=== PATIENT | male | born 1955 | race Caucasian/White ===

== ENCOUNTER 2022-10-12 12:55 | Inpatient (IN) | payer MEDICARE, SELFPAY ==
[2022-10-12] VITALS (19 sets, daily range): BP systolic 148–179; BP diastolic 83–91; PULSE 53–85; RESP 12–20; TEMP 36.2–36.9; O2SAT 96–100; BMI 29.7
--- NOTE | ~2022-10-12 | MR_ITS ---
MRI of the brain Clinical History: Weakness, dysphasia Technique: Axial and sagittal T1-weighted images were acquired. These were followed by axial T2-weigh charis, diffusion weighted, gradient, and FLAIR images. Following intravenous administration of 20 cc Mu ltiHance gadolinium, T1-weighted fat-sat imaging was performed in the axial and coronal planes. Findings: No significant abnormality seen in the brain parenchyma. No acute infarct, intracranial hem orrhage, or mass lesion. Ventricles and subarachnoid spaces are unremarkable. Orbits are unremarkable. Paranasal sinuses and m astoid air cells are clear. Major intracranial flow voids appear intact. Sagittal midline structures are intact. No abnormal postcontrast enhancement identified. IMPRESSION: No significant abnormality identified. Reviewed, dictated and finalized at location .
--- NOTE | ~2022-10-12 | CT_ITS ---
EXAMINATION: CT brain wo con DATE: 10/12/2022 13:41 INDICATION: Altered mental status TECHNIQUE: Computed tomography (CT) of the head was performed without intravenous contrast. The dose- length product was 681.00 mGy-cm. Automated exposure control and iterative reconstruction technique w ere employed. COMPARISON: None FINDINGS: Generalized brain parenchymal atrophy. There are scattered mild periventricular and subcort ical white matter changes, most likely related to small vessel ischemic disease (microangiopathy). No ventriculomegaly or midline shift. There is prominent dural calcification along the interhemispheric fissure. There is intracranial atherosclerosis. No acute intracranial hemorrhage, infarction, mass o r mass effect. Minimal mucosal thickening of the right maxillary and ethmoid sinuses. Mastoids are pn eumatized. No depressed skull fractures. IMPRESSION: 1. No acute intracranial abnormality. 2: Chronic age-related findings. Reviewed, dictated and finalized at location L.
--- NOTE | ~2022-10-12 | US_ITS ---
EXAMINATION: US renal BI DATE: 10/18/2022 16:48 INDICATION: Renal failure. TECHNIQUE: Multiple ultrasound grayscale images of the kidneys were obtained. COMPARISON: None. FINDINGS: The right kidney measures 12.2 x 6.2 x 6.3 cm. The left kidney measures 12.3 x 6.6 x 6.3 cm. The kidn eys demonstrate normal parenchymal echogenicity. There is no hydronephrosis. The bladder is normal. IMPRESSION: 1. Normal kidneys. No hydronephrosis. Reviewed, dictated and finalized at location A.
--- NOTE | ~2022-10-12 | XR_ITS ---
EXAMINATION: XR barium swallow modified DATE: 10/13/2022 13:37 INDICATION: Dysphagia TECHNIQUE: Modified barium esophagram was performed by myself who administered fluoroscopy, in conju nction with speech pathologist who administered barium in varying consistencies as per speech patholo gist documentation. This was recorded on tape. A single fluoroscopic spot image was recorded. Fluoros copy exposure time was 2.8 minutes. The DAP for this procedure was 2.295 Gycm2. FINDINGS: Oral stage: Reduced lingual movement. Pharyngeal phase: Reduced laryngeal elevation, reduced pharyngeal squeeze. Laryngeal penetration: Present. Aspiration: Present within liquid. Laryngeal sensitivity: Absent. IMPRESSION: Abnormal modified barium swallow. Please refer to speech pathologist findings and specifi c feeding recommendations. Reviewed, dictated and finalized at location A. IMPRESSION: Abnormal modified barium swallow. Please refer to speech pathologis t findings and specific feeding recommendations.
--- NOTE | ~2022-10-12 | US_ITS ---
EXAMINATION: US venous doppler [facility] DATE: 10/12/2022 15:51 INDICATION: Lower limb edema. TECHNIQUE: Grayscale ultrasound images without and with compression and Doppler ultrasound images of the bilateral lower extremity veins were obtained. COMPARISON: None. FINDINGS: The visualized portions of right common femoral vein, profunda (deep) femoral vein, femoral vein, pop liteal vein, peroneal veins, posterior tibial veins, and greater saphenous vein outflow are patent. The visualized portions of left common femoral vein, profunda femoral vein, femoral vein, popliteal v ein, peroneal veins, posterior tibial veins, and greater saphenous vein outflow are patent. IMPRESSION: 1. No deep venous thrombosis. Reviewed, dictated and finalized at location E.
--- NOTE | ~2022-10-12 | XR_ITS ---
XR chest 1V portable 10/12/2022 13:35 Indication: Altered mental status. Bilateral lower extremity swelling. Procedure: AP portable chest Comparison: No prior studies for comparison. Findings: Borderline heart size. No focal air space disease, pulmonary edema, pleural effusion or margy pected pneumothorax. Impression: 1: No acute cardiopulmonary disease. Reviewed, dictated and finalized at location L. Impression: 1: No acute cardiopulmonary disease.
--- NOTE | 2022-10-12 13:05 | ECG_ITS ---
Measurements Intervals [place] Rate: 61 P: 10 AL: 189 QRS: -14 QRSD: 106 T: 11 QT: 410 QTc: 413 Interpretive Statements SINUS RHYTHM ATRIAL PREMATURE COMPLEXES VOLTAGE CRITERIA FOR LVH BORDERLINE T WAVE ABNORMALITY- INFERIOR LEADS BASELINE ARTIFACT- I, II, AVR, AVL BORDERLINE ECG NO PREVIOUS ECG AVAILABLE FOR COMPARISON Electronically Signed On 10-12-2022 13:51:08 CDT by Ricardo Rosa D.O.
--- NOTE | 2022-10-12 13:12 | ED.AMS ---
HPI - Altered Mental Status General Chief Complaint: Altered Mental Status Stated Complaint: ams Time Seen by Provider: 10/12/22 13:00 Source: family and EMS Mode of arrival: EMS Limitations: altered mental status History of Present Illness HPI narrative: Patient is a 67-year-old male with a history of Alzheimer's dementia, recent left lower extremity cellulitis and admission at [facility] in [place], [place], presenting to the emergency department for evaluation of altered mental status. All history was obtained by speaking with EMS as patient is currently altered and oriented to person, not to place or time. He can state that he is in an emergency room but then states around hospital. He states the year is 2031 patient denies any acute complaints. History is obviously limited secondary to his altered mentation. Per EMS, patient was discharged from [facility] yesterday after he was admitted for left lower extremity cellulitis. EMS called this morning to evaluate the patient and his noticed that he had worsening mentation and increased weakness. At the time of their arrival, he was sitting in a chair, very somnolent. He was transported to the emergency department in stable condition. Glucose 123. No hypotension, afebrile. Review of Systems Review of Systems: ROS unobtainable: Yes unobtainable due to medical condition and unobtainable due to mental status PMFSH Past Medical History Medical History (Updated 10/12/22 @ 15:22 by Janene Eddy MD) Alzheimer's dementia Cellulitis Exam Narrative: GENERAL: Patient is somnolent but arousable, confused HEAD: Normocephalic, atraumatic. EYES: PERRLA and EOMI. ENT: Nares clear, no rhinorrhea or epistaxis. Mucous membranes dry. NECK: Supple. CHEST: No respiratory distress, breathing even and non labored HEART: Bradycardic rate, sinus rhythm ABDOMEN:Non distended, soft to palpation, does not grimace with palpation, no rebound, rigidity or guarding EXTREMITIES: Spontaneously ranging all extremities. Normal range of motion. Mild edema in the bilateral lower extremities, greater in the left when compared to the right Skin: Warm, dry, no rash. There is no significant erythema, purpura, or induration to the extremities. NEURO:No focal deficits. Alert and oriented x1-2 Course Vital Signs Vital signs: Vital Signs Blood Pressure 160/84 H 10/12/22 13:07 Pulse Oximetry 100 10/12/22 13:07 Temperature 36.2 C L 10/12/22 13:26 Pulse Rate 53 L 10/12/22 13:26 Respiratory Rate 16 10/12/22 13:26 Blood Pressure 168/86 H 10/12/22 14:17 Pulse Oximetry 98 10/12/22 14:48 Oxygen Delivery Room Air 10/12/22 13:26 MDM - Altered Mental Status MDM Narrative Medical decision making narrative: Medical decision making narrative: -Presentation: Patient with recent prolonged admission at [facility], discharged home yesterday, and then transported here via EMS for generalized weakness. Time of assessment, ABCs are intact, patient is mildly bradycardic, no hypotension. Patient does have history of dementia, is currently somnolent but arousable. Oriented to person, can identify he is in emergency room, otherwise not oriented to place and time. -DDX includes but is not limited to: Pneumonia, encephalopathy, electrolyte derangement, CVA, intracranial hemorrhage, deconditioning, infection -Co-morbidities complicating care: Dementia -Social determinants of health: Poor health literacy -External Chart Review: External EMR record reviewed, no previous visits to this facility, did request records from [facility] in [place], [place] -Hx from independent Sources: Daughter and at bedside -Discussion of Management/Consultants: Discussed with hospitalist, accepted for admission -Independent interpretation of studies: Chest x-ray per my interpretation without acute cardiopulmonary abnormality Dx tests considered but not o
[2022-10-12 13:24] LABS: Fractional Inspired Oxygen 21 %; HCO3 VBG 24.9 mEq/l (24.0-30.0); PCO2 VBG 40.4 mmHg (42.0-48.0); PO2 VBG 31.2 mmHg (35.0-45.0)
[2022-10-12 13:26] LABS: Device ROOM AIR; pH VBG 7.408 (7.300-7.400)
[2022-10-12 13:37] LABS: Appearance Urine Clear (Clear); Bilirubin Urine Negative (Negative); Blood Urine Negative (Negative); Color Urine Dark Yellow (Yellow); Glucose Urine UA Negative (Negative); Ketones Urine Trace mg/dL (Negative); Leukocyte Esterase Ur Negative LEU/UL (Negative); Nitrate Urine Negative (Negative); Protein Urine Negative (Negative); Specific Grav Ur 1.027 (1.001-1.035); pH Urine 5.5 (5.0-9.0)
[2022-10-12 13:39] LABS: Basophils Percent Auto 0.7 % (0.2-1.2); Eosinophils Absolute Auto 0.1 K/mm3 (0-0.3); Eosinophils Percent Auto 1.4 % (0-4.4); Hematocrit 42.9 % (42.0-52.0); Immature Granulocyte Absolute 0.03 K/mm3 (0.00-0.031); Immature Granulocyte Percent A 0.5 % (0-0.5); Lymphocytes Absolute Auto 0.82 K/mm3 (0.9-3.2); Lymphocytes Percent Auto 14.6 % (18.3-44.2); Mean Corpuscular HGB Conc 32.6 g/dl (32-36); Mean Corpuscular Hemoglobin 31.7 pg (26-34); Mean Corpuscular Volume 97.3 fl (80-100); Mean Platelet Volume 10.9 fl (7.4-10.4); Monocytes Absolute Auto 0.9 K/mm3 (0.1-0.6); Monocytes Percent Auto 16.6 % (2.6-8.5); Neutrophils Absolute Auto 3.7 K/mm3 (1.3-6.7); Neutrophils Percent Auto 66.2 % (45.5-73.1); Platelet Count Result 140 k/mm3 (150-375); Red Blood Count 4.41 M/mm3 (4.6-6.20); Red Cell Distribution Width 13.2 % (11.5-14.5); White Blood Count 5.6 K/mm3 (4.5-10.0)
[2022-10-12 13:43] LABS: Lactic Acid Reflex 0.8 mmol/L (0.7-2.0)
[2022-10-12 13:44] LABS: Alanine Aminotransferase 8 U/L (6-50); Albumin Level 3.9 g/dL (3.5-5.1); Alkaline Phosphatase 63 U/L (38-126); Anion Gap 7 mmol/L (8-16); Aspartate Amino Transferase 16 U/L (17-59); Blood Urea Nitrogen 21 mg/dL (9-20); Calcium 8.6 mg/dL (8.4-10.2); Carbon Dioxide 28 mmol/L (22-30); Chloride 104 mmol/L (98-107); Estimated CRCL calculation 66 ml/min; Estimated Glomerular Filt Rate > 60; Glucose 99 mg/dL (65-110); Potassium 4.1 mmol/L (3.4-5.0); Sodium 139 mmol/L (137-145)
[2022-10-12 13:48] LABS: Glucose Point of Care 106 mg/dl (65-105)
[2022-10-12 13:52] LABS: Benzodiazepines Screen Urine Negative (Negative)
[2022-10-12 13:52] LABS: Acetaminophen < 10 ug/mL (10-30); Ammonia < 9 umol/L (9-30); Ethanol < 10 mg/dL (<10); INR 1.1; Prothrombin Time 14.5 Seconds (11.1-14.7); Salicylate < 1.0 mg/dL (2-20)
[2022-10-12 13:53] LABS: Cannabinoid Screen Urine Negative (Negative); Cocaine Screen Urine Negative (Negative); Methadone Screen Urine Negative (Negative)
[2022-10-12 13:53] LABS: Add Urine Microscopic? NO
[2022-10-12 13:54] LABS: Partial Thromboplastin Time 35.9 SECONDS (22.3-36.8)
[2022-10-12 13:55] LABS: Troponin I < 0.012 ng/mL (0.000-0.034)
[2022-10-12 13:57] LABS: Barbiturate Screen Urine Negative (Negative)
[2022-10-12 14:02] LABS: Opiate Screen Urine Negative (Negative)
[2022-10-12 14:10] LABS: Influenza A QL RT-PCR Negative (Negative); Influenza B QL RT-PCR Negative (Negative); RSV RNA, RT-PCR Negative (Negative); SARS-CoV-2 RNA PCR Negative (Negative)
[2022-10-12 14:38] LABS: Amphetamine Screen Urine Negative (Negative); Phencyclidine Screen Urine Negative (Negative)
[2022-10-12 14:44] LABS: NT Pro B Type Natriuretic Pept 271 pg/mL (19.9-100)
[2022-10-12 16:15] LABS: Glucose Point of Care 108 mg/dl (65-105)
[2022-10-12 17:07] LABS: Troponin I < 0.012 ng/mL (0.000-0.034)
--- NOTE | 2022-10-12 17:20 | ADMGEN ---
This patient, Sean Shankar, was admitted to Medical Room 341-01. Patient/family oriented to hospital policies and general routines including ID bracelet, bed and alarms, visiting hours, pain management, procedures, bathroom and other care routines, personal items, smoking policy, room service/diet, and visiting hours. Information on how to activate the Rapid Response Team has been discussed. Patient/Family are encouraged to report perceived risks to care and to ask questions if they do not understand what they are told or what they should do.
[2022-10-12] MEDS: SODIUM CHLORIDE 0.9% IV 1,000 ML 125 ML IV CONT (18:07)
[2022-10-12 19:54] LABS: Troponin I < 0.012 ng/mL (0.000-0.034)
--- NOTE | 2022-10-12 22:13 | PM.IMHP ---
H&P: HPI History of Present Illness Date/Time: 10/12/22 22:13 Chief Complaint: altered mental status Narrative: this is a 67-year-old male patient who has a history of Alzheimer's dementia. He lives with his . The patient was recently admitted to [facility] in [place] for cellulitis of the lower extremity. The patient is currently orientated to himself. The patient was not orientated to place initially but the patient is now where that he is at [facility]. The patient was discharged from [facility] yesterday. EMS was called this morning for the patient to be evaluated since he has increased weakness. When EMS came to the residence the patient was very somnolent and was sitting in a chair. His blood sugar was 123. No fever chills noted. No nausea vomiting or diarrhea. The patient was answering questions for me without difficulty. Patient has some leg swelling and venous Doppler was negative. Head CT was read as no acute intracranial abnormality. Chronic age-related findings. Chest x-ray was read as no acute cardiopulmonary disease. The patient was given IV fluids, Haldol and Benadryl in the emergency room. The patient is being admitted to observation status on the date of service of 10/12/2022 peer Review of Systems Review of Systems: All systems reviewed & are unremarkable except as noted in HPI and below Constitutional: Constitutional: Reports as per HPI and Reports no additional constitutional complaints Eyes: Eyes: Reports as per HPI and Reports no additional eye complaints ENT: Reports system reviewed and no additional complaints, except as documented and Reports Normal hearing present Cardiovascular: Cardiovascular: Reports no additional cardiovascular complaints Respiratory: Respiratory: Reports no additional respiratory complaints and Reports no additional respiratory complaints Gastrointestinal: Gastrointestinal: Reports as per HPI and Reports no additional gastrointestinal complaints Musculoskeletal: Musculoskeletal: Reports no additional musculoskeletal complaints Integumentary/Breasts: Skin/Breast: Reports system reviewed and no additional complaints, except as docu and Reports as per HPI Neurologic: Reports system reviewed and no additional complaints, except as documented, Reports as per HPI and Reports Normal hearing present Psychiatric: Psychiatric: Reports no additional psychiatric complaints and Reports as per HPI Endocrine: Endocrine: Reports no additional endocrine complaints Hematologic/Lymphatic: Hematologic/Lymphatic: Reports no additional hematologic/lymphatic complaints Allergic/Immunologic: Allergic/Immunologic: Reports no additional allergic/immunologic complaints [facility] Past Medical History Medical History (Updated 10/12/22 @ 23:58 by Chapis Hawk NP) Alzheimer's dementia Anxiety Cellulitis Surgical History Surgical History (Updated 10/12/22 @ 23:49 by Chapis Hawk NP) Surgical history unknown Family History Family History (Updated 10/12/22 @ 23:49 by Chapis Hawk NP) Unknown No problems noted. Social History Social History (Updated 10/12/22 @ 23:52 by Chapis Hawk NP) Social History: the patient lives with his . 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 The patient stated that he had 2 children. Code status full code Smoking status: Former smoker Alcohol intake: current Drinks per week: 2 Substance use: never Spiritual care concerns: No Meds Home Medications and Allergies Home Medications Medication Instructions Recorded Confirmed Type carbidopa 25 mg-levodopa 100 mg 2.5 tablet PO Q4H 10/12/22 10/12/22 History tablet cephalexin 500 mg capsule 500 mg PO QID 10/12/22 10/12/22 History clonazepam 0.5 mg tablet 1 mg PO HS PRN Insomnia 10/12/22 10/12/22 History donepezil 10 mg tablet 10 mg PO HS 10/12/22 10/12/22 History Allergies Allergy/AdvRea
[2022-10-13] VITALS (7 sets, daily range): BP systolic 124–152; BP diastolic 69–80; PULSE 65–86; RESP 16–18; TEMP 36.3–37.2; O2SAT 96–100
[2022-10-13] MEDS: SODIUM CHLORIDE 0.9% IV 1,000 ML 125 ML IV CONT ×2 (05:51→17:09)
[2022-10-13 05:57] LABS: Basophils Percent Auto 0.6 % (0.2-1.2); Eosinophils Percent Auto 0.6 % (0-4.4); Hematocrit 42.3 % (42.0-52.0); Hemoglobin 14.6 g/dL (14.0-18.0); Immature Granulocyte Absolute 0.03 K/mm3 (0.00-0.031); Immature Granulocyte Percent A 0.4 % (0-0.5); Lymphocytes Absolute Auto 0.61 K/mm3 (0.9-3.2); Lymphocytes Percent Auto 8.8 % (18.3-44.2); Mean Corpuscular HGB Conc 34.5 g/dl (32-36); Mean Corpuscular Hemoglobin 32.4 pg (26-34); Mean Corpuscular Volume 93.8 fl (80-100); Mean Platelet Volume 10.6 fl (7.4-10.4); Monocytes Absolute Auto 0.9 K/mm3 (0.1-0.6); Monocytes Percent Auto 13.3 % (2.6-8.5); Neutrophils Absolute Auto 5.3 K/mm3 (1.3-6.7); Neutrophils Percent Auto 76.3 % (45.5-73.1); Platelet Count Result 141 k/mm3 (150-375); Red Blood Count 4.51 M/mm3 (4.6-6.20); Red Cell Distribution Width 12.7 % (11.5-14.5); White Blood Count 6.9 K/mm3 (4.5-10.0)
[2022-10-13 06:14] LABS: Anion Gap 6 mmol/L (8-16); Blood Urea Nitrogen 15 mg/dL (9-20); Calcium 8.5 mg/dL (8.4-10.2); Carbon Dioxide 27 mmol/L (22-30); Chloride 105 mmol/L (98-107); Estimated CRCL calculation 80 ml/min; Estimated Glomerular Filt Rate > 60; Glucose 105 mg/dL (65-110); Lactic Acid Reflex 0.6 mmol/L (0.7-2.0); Magnesium 1.8 mg/dL (1.6-2.3); Potassium 3.7 mmol/L (3.4-5.0); Sodium 138 mmol/L (137-145)
[2022-10-13 06:51] LABS: Thyroid Stimulating Hormone Reflex 0.941 uIU/mL (0.465-4.68)
--- NOTE | 2022-10-13 10:34 | PCSTNOTE ---
Bedside swallowing evaluation completed, spouse present. Patient was positioned upright in bed. Oral peripheral examination results show impaired oral motor strength, range of motion, and coordination with lingual and labial tremoring with movement. Patient was able to cough and clear throat upon command. Trials of thin liquid by spoon and cup and pureed food by spoon were given. Delayed triggering of swallow reflex and reduced laryngeal elevation present with all consistencies. Coughing and throat clearing with thin liquid bolus from cup. Per spouse, patient has difficulty swallowing pills at this time. Recommendation: NPO until modified barium swallow study. Thank you for the referral of this patient.
--- NOTE | 2022-10-13 12:04 | PM.IMPN ---
Progress Note: A&P Assessment and Plan (1) Generalized muscle weakness: Code(s): M62.81 - Muscle weakness (generalized) Status: Acute Assessment and Plan: PT and OT have been consulted for evaluation. rn care manager has been consulted for possible placement. CT head and MRI brain negative (2) Dementia: Code(s): F03.90 - Unspecified dementia, unspecified severity, without behavioral disturbance, psychotic disturbance, mood disturbance, and anxiety Status: Acute Assessment and Plan: continue with patient's Aricept and carbidopa levodopa states she is unable to take care of the patient at home. Consult case management for placement (3) Anxiety: Code(s): F41.9 - Anxiety disorder, unspecified Status: Acute Assessment and Plan: continue with clonazepam . (4) Cellulitis: Code(s): L03.90 - Cellulitis, unspecified Status: Acute Assessment and Plan: continue with Keflex . The patient recently was at [facility] and was treated with IV antibiotics there. The patient was sent home on Keflex. We are just going to continue with his Keflex that was prescribed for outpatient cellulitis. Subjective Date/time seen: 10/13/22 12:04 Interval history: patient is confused Review of Systems Review of Systems: All systems reviewed & are unremarkable except as noted in HPI and below Constitutional: Constitutional: Reports as per HPI and Reports no additional constitutional complaints Eyes: Eyes: Reports as per HPI and Reports no additional eye complaints ENT: Reports system reviewed and no additional complaints, except as documented and Reports Normal hearing present Cardiovascular: Cardiovascular: Reports no additional cardiovascular complaints Respiratory: Respiratory: Reports no additional respiratory complaints and Reports no additional respiratory complaints Gastrointestinal: Gastrointestinal: Reports as per HPI and Reports no additional gastrointestinal complaints Musculoskeletal: Musculoskeletal: Reports no additional musculoskeletal complaints Integumentary/Breasts: Skin/Breast: Reports system reviewed and no additional complaints, except as docu and Reports as per HPI Neurologic: Reports system reviewed and no additional complaints, except as documented, Reports as per HPI and Reports Normal hearing present Psychiatric: Psychiatric: Reports no additional psychiatric complaints and Reports as per HPI Endocrine: Endocrine: Reports no additional endocrine complaints Hematologic/Lymphatic: Hematologic/Lymphatic: Reports no additional hematologic/lymphatic complaints Allergic/Immunologic: Allergic/Immunologic: Reports no additional allergic/immunologic complaints Exam Const: General: cooperative, healthy appearing, comfortable, no acute distress, well developed, awake, average body habitus and well nourished Nutritional Appearance: average body habitus and well nourished Orientation/consciousness: oriented to person and oriented to place Limitations: no limitations HENMT: Head: normal to inspection, No palpable skull fracture present, normocephalic and atraumatic Ears: hearing grossly normal bilaterally and external ears normal Face/Nose/Sinus: Normal external nose present and Normal nares present Eyes: General: appearance normal, both eyes and all related structures Alignment and Position: alignment normal Periorbital: periorbital findings normal Eyelids: eyelids normal Pupils: Equal, round and reactive pupils present EOM: EOMs intact bilaterally Neck: Neck: normal visual inspection and full ROM Chest: Chest palpation & inspection: normal inspection of the chest Resp: Effort & Inspection: normal respiratory effort Auscultation: clear to auscultation bilaterally Cardio: Palpation: normal PMI Rate: regular rate Rhythm: regular rhythm Heart sounds: S1 normal heart sound present and S2 normal heart sound present Perip
--- NOTE | 2022-10-13 15:24 | PCSTNOTE ---
Modified barium swallow study. Trials of thin barium by spoon, cup, moderately thick by cup, mixed consistency by spoon, whole pill, and pill broken into quarters and given in pudding were completed. Reduced lingual movement with all consistencies, reduced laryngeal elevation, reduced pharyngeal squeeze present. One episode of aspiration occurred when pill given with thin barium. Pill remained in lateral oral sulcus, thin liquid was swallowed and aspirated. Pill was then placed whole in pudding and pudding was swallowed but pill remained in lateral oral sulcus again. Pill was then broken into quarters and two pieces were placed in 5 ml of pudding and swallowed successfully. Recommendation: minced moist diet texture with thin liquids. Swallowing precautions placed in chart. No further speech therapy recommended. Thank you for the referral of this patient.
[2022-10-13] MEDS: CARBIDOPA/LEVODOPA 12.5/50 MG TABLET 1 TABLET PO ×2 (17:10→20:34)
[2022-10-13] MEDS: CEPHALEXIN 500 MG CAPSULE PO ×2 (17:10→23:28)
[2022-10-13] MEDS: CARBIDOPA/LEVODOPA 25/100 MG TABLET 2 TABLET PO ×2 (17:10→20:34)
[2022-10-13] MEDS: clonazePAM (*CRX) 0.5 MG TABLET 1 MG PO (20:33)
[2022-10-13] MEDS: VANCOMYCIN 1,250 MG/NS 250 ML 1,250 MG/250 ML BAG 166.67 MG IVPB ×2 (20:34→22:39)
[2022-10-13] MEDS: DONEPEZIL HCL 10 MG TABLET PO (20:34)
[2022-10-14 04:28] VITALS: BP 139/69; PULSE 64; RESP 20; TEMP 36.4; O2SAT 96
[2022-10-14] MEDS: CEPHALEXIN 500 MG CAPSULE PO ×4 (06:00→23:20)
[2022-10-14] MEDS: CARBIDOPA/LEVODOPA 25/100 MG TABLET 2 TABLET PO ×5 (06:00→20:36)
[2022-10-14] MEDS: CARBIDOPA/LEVODOPA 12.5/50 MG TABLET 1 TABLET PO ×5 (06:00→20:36)
[2022-10-14 06:30] LABS: Estimated CRCL calculation 73 ml/min; Estimated Glomerular Filt Rate > 60
--- NOTE | 2022-10-14 10:46 | PM.IMPN ---
Progress Note: A&P Assessment and Plan (1) Bacteremia: Code(s): R78.81 - Bacteremia Status: Acute Assessment and Plan: patient has Staph epidermidis growing in blood cultures. likely contaminant. Patient was started on IV vancomycin which will stop (2) Generalized muscle weakness: Code(s): M62.81 - Muscle weakness (generalized) Status: Acute Assessment and Plan: PT and OT have been consulted for evaluation. customer care coordinator has been consulted for possible placement. CT head and MRI brain negative (3) Dementia: Code(s): F03.90 - Unspecified dementia, unspecified severity, without behavioral disturbance, psychotic disturbance, mood disturbance, and anxiety Status: Acute Assessment and Plan: continue with patient's Aricept and carbidopa levodopa states she is unable to take care of the patient at home. Consult case management for placement (4) Anxiety: Code(s): F41.9 - Anxiety disorder, unspecified Status: Acute Assessment and Plan: continue with clonazepam . (5) Cellulitis: Code(s): L03.90 - Cellulitis, unspecified Status: Acute Assessment and Plan: continue with Keflex . The patient recently was at [facility] and was treated with IV antibiotics there. The patient was sent home on Keflex. We are just going to continue with his Keflex that was prescribed for outpatient cellulitis. Subjective Date/time seen: 10/14/22 10:46 Interval history: no significant issues overnight Review of Systems Review of Systems: All systems reviewed & are unremarkable except as noted in HPI and below Constitutional: Constitutional: Reports as per HPI and Reports no additional constitutional complaints Eyes: Eyes: Reports as per HPI and Reports no additional eye complaints ENT: Reports system reviewed and no additional complaints, except as documented and Reports Normal hearing present Cardiovascular: Cardiovascular: Reports no additional cardiovascular complaints Respiratory: Respiratory: Reports no additional respiratory complaints and Reports no additional respiratory complaints Gastrointestinal: Gastrointestinal: Reports as per HPI and Reports no additional gastrointestinal complaints Musculoskeletal: Musculoskeletal: Reports no additional musculoskeletal complaints Integumentary/Breasts: Skin/Breast: Reports system reviewed and no additional complaints, except as docu and Reports as per HPI Neurologic: Reports system reviewed and no additional complaints, except as documented, Reports as per HPI and Reports Normal hearing present Psychiatric: Psychiatric: Reports no additional psychiatric complaints and Reports as per HPI Endocrine: Endocrine: Reports no additional endocrine complaints Hematologic/Lymphatic: Hematologic/Lymphatic: Reports no additional hematologic/lymphatic complaints Allergic/Immunologic: Allergic/Immunologic: Reports no additional allergic/immunologic complaints Exam Const: General: cooperative, healthy appearing, comfortable, no acute distress, well developed, awake, average body habitus and well nourished Nutritional Appearance: average body habitus and well nourished Orientation/consciousness: oriented to person and oriented to place Limitations: no limitations HENMT: Head: normal to inspection, No palpable skull fracture present, normocephalic and atraumatic Ears: hearing grossly normal bilaterally and external ears normal Face/Nose/Sinus: Normal external nose present and Normal nares present Eyes: General: appearance normal, both eyes and all related structures Alignment and Position: alignment normal Periorbital: periorbital findings normal Eyelids: eyelids normal Pupils: Equal, round and reactive pupils present EOM: EOMs intact bilaterally Neck: Neck: normal visual inspection and full ROM Chest: Chest palpation & inspection: normal inspection of the chest Resp: Effor
[2022-10-14 14:00] VITALS: BP 109/68; PULSE 60; RESP 18; TEMP 36.6; O2SAT 98
[2022-10-14] MEDS: SODIUM CHLORIDE 0.9% IV 1,000 ML 125 ML IV CONT (17:07)
[2022-10-14 20:00] VITALS: PULSE 70; RESP 18; O2SAT 97
[2022-10-14 20:27] VITALS: BP 144/72; PULSE 70; RESP 18; TEMP 36.7; O2SAT 97
[2022-10-14] MEDS: DONEPEZIL HCL 10 MG TABLET PO (20:36)
[2022-10-14] MEDS: clonazePAM (*CRX) 0.5 MG TABLET 1 MG PO (20:36)
[2022-10-15 04:28] VITALS: BP 134/69; PULSE 61; RESP 18; TEMP 36.3; O2SAT 95
[2022-10-15] MEDS: CARBIDOPA/LEVODOPA 25/100 MG TABLET 2 TABLET PO ×5 (05:12→20:17)
[2022-10-15] MEDS: CARBIDOPA/LEVODOPA 12.5/50 MG TABLET 1 TABLET PO ×5 (05:12→20:17)
[2022-10-15] MEDS: CEPHALEXIN 500 MG CAPSULE PO (05:17)
--- NOTE | 2022-10-15 10:59 | PM.IMPN ---
Progress Note: A&P Assessment and Plan (1) Bacteremia: Code(s): R78.81 - Bacteremia Status: Acute Assessment and Plan: patient has Staph epidermidis growing in both anaerobic and anaerobic bottles. Resume vancomycin IV. Echo to rule out cardiac vegetations (2) Generalized muscle weakness: Code(s): M62.81 - Muscle weakness (generalized) Status: Acute Assessment and Plan: PT and OT have been consulted for evaluation. patient care coordinator has been consulted for possible placement. CT head and MRI brain negative (3) Dementia: Code(s): F03.90 - Unspecified dementia, unspecified severity, without behavioral disturbance, psychotic disturbance, mood disturbance, and anxiety Status: Acute Assessment and Plan: continue with patient's Aricept and carbidopa levodopa states she is unable to take care of the patient at home. Consult case management for placement (4) Anxiety: Code(s): F41.9 - Anxiety disorder, unspecified Status: Acute Assessment and Plan: continue with clonazepam . (5) Cellulitis: Code(s): L03.90 - Cellulitis, unspecified Status: Acute Assessment and Plan: DC Keflex since patient is on IV vancomycin Subjective Date/time seen: 10/15/22 10:59 Interval history: No change from yesterday Review of Systems Review of Systems: All systems reviewed & are unremarkable except as noted in HPI and below Constitutional: Constitutional: Reports as per HPI and Reports no additional constitutional complaints Eyes: Eyes: Reports as per HPI and Reports no additional eye complaints ENT: Reports system reviewed and no additional complaints, except as documented and Reports Normal hearing present Cardiovascular: Cardiovascular: Reports no additional cardiovascular complaints Respiratory: Respiratory: Reports no additional respiratory complaints and Reports no additional respiratory complaints Gastrointestinal: Gastrointestinal: Reports as per HPI and Reports no additional gastrointestinal complaints Musculoskeletal: Musculoskeletal: Reports no additional musculoskeletal complaints Integumentary/Breasts: Skin/Breast: Reports system reviewed and no additional complaints, except as docu and Reports as per HPI Neurologic: Reports system reviewed and no additional complaints, except as documented, Reports as per HPI and Reports Normal hearing present Psychiatric: Psychiatric: Reports no additional psychiatric complaints and Reports as per HPI Endocrine: Endocrine: Reports no additional endocrine complaints Hematologic/Lymphatic: Hematologic/Lymphatic: Reports no additional hematologic/lymphatic complaints Allergic/Immunologic: Allergic/Immunologic: Reports no additional allergic/immunologic complaints Exam Const: General: cooperative, healthy appearing, comfortable, no acute distress, well developed, awake, average body habitus and well nourished Nutritional Appearance: average body habitus and well nourished Orientation/consciousness: oriented to person and oriented to place Limitations: no limitations HENMT: Head: normal to inspection, No palpable skull fracture present, normocephalic and atraumatic Ears: hearing grossly normal bilaterally and external ears normal Face/Nose/Sinus: Normal external nose present and Normal nares present Eyes: General: appearance normal, both eyes and all related structures Alignment and Position: alignment normal Periorbital: periorbital findings normal Eyelids: eyelids normal Pupils: Equal, round and reactive pupils present EOM: EOMs intact bilaterally Neck: Neck: normal visual inspection and full ROM Chest: Chest palpation & inspection: normal inspection of the chest Resp: Effort & Inspection: normal respiratory effort Auscultation: clear to auscultation bilaterally Cardio: Palpation: normal PMI Rate: regular rate Rhythm: regular rhythm Heart sounds: S1 normal heart radha
[2022-10-15 14:00] VITALS: BP 130/79; PULSE 61; RESP 14; TEMP 36.2; O2SAT 98
[2022-10-15 19:33] VITALS: BP 151/80; PULSE 56; RESP 20; TEMP 36.4; O2SAT 96
[2022-10-15 20:00] VITALS: PULSE 56; RESP 20; O2SAT 96
[2022-10-15] MEDS: DONEPEZIL HCL 10 MG TABLET PO (20:17)
[2022-10-15] MEDS: clonazePAM (*CRX) 0.5 MG TABLET 1 MG PO (20:24)
--- NOTE | 2022-10-16 | ECHOL_ITS ---
Patient Info Name: Sean Shankar Age: 67 years : 1955 Gender: Male Ht: 74 in Wt: 231 lbs BSA: 2.36 m2 HR: 55 bpm BP: 159 / 85 mmHg Heart Rhythm: Sinus Rhythm Technical Quality: Fair Exam Date: 10/16/2022 1:05 PM Exam Location: [facility] Pulmonary Exam Room: 341 Patient Status: Inpatient Admit Date: 10/13/2022 Staff Ordering Physician: Harshad Deras MD Childhood Development Teacher: Mago Clayton RDCS Attending Provider: Ad Bar MD Referring Physician: Augusta CROWELL; Exam Type: CA echo limited Study Info Indications - R/O VEGETATIONS Limited two-dimensional transthoracic echocardiogram is performed. Summary 1. Normal left ventricular size thickness and systolic contractility. 2. Mildly sclerotic aortic valve. 3. No infectious vegetations were identified. Left Ventricle Left ventricular chamber dimension is normal. Left ventricular systolic function is normal, estimated at 55-60%. Right Ventricle Right ventricular chamber dimension is normal. Left Atria Left atrial chamber dimension is normal. Right Atria Right atrial chamber dimension is normal. Aortic Valve The aortic valve is trileaflet. There is mild aortic valve sclerosis. Pulmonic Valve The pulmonic valve is normal. Mitral Valve The mitral valve has normal leaflets. Tricuspid Valve The tricuspid valve leaflets are normal. Pericardium/Pleural The pericardium appears normal. Aorta The aortic root size at the sinus of Valsalva is mildly dilated. The prox ascending aorta size is mildly dilated. Report Signatures
[2022-10-16 04:55] VITALS: BP 159/85; PULSE 58; RESP 18; TEMP 36.4; O2SAT 99
[2022-10-16] MEDS: CARBIDOPA/LEVODOPA 12.5/50 MG TABLET 1 TABLET PO ×5 (05:22→22:16)
[2022-10-16] MEDS: CARBIDOPA/LEVODOPA 25/100 MG TABLET 2 TABLET PO ×5 (05:22→22:16)
[2022-10-16 06:02] LABS: Estimated CRCL calculation 80 ml/min; Estimated Glomerular Filt Rate > 60
--- NOTE | 2022-10-16 12:40 | PM.IMPN ---
Progress Note: A&P Assessment and Plan (1) Bacteremia: Code(s): R78.81 - Bacteremia Status: Acute Assessment and Plan: patient has Staph epidermidis growing in both anaerobic and anaerobic bottles. Cont vancomycin IV. Echo to rule out cardiac vegetations (2) Generalized muscle weakness: Code(s): M62.81 - Muscle weakness (generalized) Status: Acute Assessment and Plan: PT and OT have been consulted for evaluation. wound care center consultant has been consulted for possible placement. CT head and MRI brain negative awaiting Echo today (3) Dementia: Code(s): F03.90 - Unspecified dementia, unspecified severity, without behavioral disturbance, psychotic disturbance, mood disturbance, and anxiety Status: Acute Assessment and Plan: continue with patient's Aricept and carbidopa levodopa states she is unable to take care of the patient at home. Consult case management for placement (4) Anxiety: Code(s): F41.9 - Anxiety disorder, unspecified Status: Acute Assessment and Plan: continue with clonazepam . (5) Cellulitis: Code(s): L03.90 - Cellulitis, unspecified Status: Acute Assessment and Plan: DC Keflex since patient is on IV vancomycin Subjective Date/time seen: 10/16/22 12:40 Interval history: 67-year-old male patient who has a history of Alzheimer's dementia.? He lives with his .? The patient was recently admitted to [facility] in [place] for cellulitis of the lower extremity. PT is having echo to look for vegetations today Pt has Staph epidermidis growing in both anaerobic and anaerobic bottles Family in the room Review of Systems Review of Systems: Much the same Exam Const: General: cooperative, healthy appearing, comfortable, no acute distress, well developed, alert, awake, Physically active, average body habitus and well nourished Nutritional Appearance: average body habitus and well nourished Orientation/consciousness: oriented to person and oriented to place Limitations: no limitations HENMT: Head: normal to inspection, No palpable skull fracture present, normocephalic and atraumatic Ears: hearing grossly normal bilaterally and external ears normal Face/Nose/Sinus: Normal external nose present and Normal nares present Eyes: General: appearance normal, both eyes and all related structures Alignment and Position: alignment normal Periorbital: periorbital findings normal Eyelids: eyelids normal Pupils: Equal, round and reactive pupils present EOM: EOMs intact bilaterally Neck: Neck: normal visual inspection and full ROM Chest: Chest palpation & inspection: normal inspection of the chest Resp: Effort & Inspection: normal respiratory effort Auscultation: clear to auscultation bilaterally Cardio: Palpation: normal PMI Rate: regular rate Rhythm: regular rhythm Heart sounds: S1 normal heart sound present and S2 normal heart sound present Peripheral pulses: Peripheral pulses 2+ throughout GI: Inspection: normal to inspection Auscultation: normal bowel sounds Rectal Exam: deferred Back/Spine/Pelvis: Cervical Spine: cervical ROM normal Skin: General skin exam: normal color Lesions: no lesions Rashes: no rashes Trauma: no lacerations or abrasions Wounds: no wounds Hair: normal Nails: normal Neuro: General: oriented to person and oriented to place Cranial nerves: Yes Equal, round and reactive pupils present and Yes Normal hearing present Cognition (Neuro): normal cognition Speech: normal speech Motor exam (neuro): 5/5 motor strength present throughout Sensory Exam: normal sensation Extrem: General: normal to inspection Right upper extremity: normal to inspection and shoulder/upper arm Left upper extremity: normal to inspection and shoulder/upper arm Right lower extremity: edema Details: 1+ Left lower extremity: edema Details: 1+ Psych: Appearance: grossly normal Mental Sta
[2022-10-16 12:56] LABS: Hematocrit 45.7 % (42.0-52.0); Hemoglobin 15.6 g/dL (14.0-18.0); Mean Corpuscular HGB Conc 34.1 g/dl (32-36); Mean Corpuscular Volume 93.8 fl (80-100); Mean Platelet Volume 11.2 fl (7.4-10.4); Platelet Count Result 155 k/mm3 (150-375); Red Blood Count 4.87 M/mm3 (4.6-6.20); Red Cell Distribution Width 12.9 % (11.5-14.5); White Blood Count 5.6 K/mm3 (4.5-10.0)
[2022-10-16 13:59] VITALS: BP 104/69; PULSE 56; RESP 16; TEMP 36.7; O2SAT 95
[2022-10-16 20:59] VITALS: BP 128/72; PULSE 59; RESP 16; TEMP 36.4; O2SAT 98
[2022-10-16 22:01] LABS: Vancomycin Trough 19.2 ug/mL (10.0-20.0)
[2022-10-16] MEDS: DONEPEZIL HCL 10 MG TABLET PO (22:16)
[2022-10-17] MEDS: CARBIDOPA/LEVODOPA 25/100 MG TABLET 2 TABLET PO ×5 (04:55→21:02)
[2022-10-17] MEDS: CARBIDOPA/LEVODOPA 12.5/50 MG TABLET 1 TABLET PO ×5 (04:55→21:02)
[2022-10-17 05:43] LABS: Anion Gap 6 mmol/L (8-16); Blood Urea Nitrogen 25 mg/dL (9-20); Calcium 8.5 mg/dL (8.4-10.2); Carbon Dioxide 31 mmol/L (22-30); Chloride 100 mmol/L (98-107); Estimated CRCL calculation 33 ml/min; Estimated Glomerular Filt Rate 28; Glucose 110 mg/dL (65-110); Potassium 3.8 mmol/L (3.4-5.0); Sodium 137 mmol/L (137-145)
[2022-10-17 06:00] VITALS: BP 136/63; PULSE 73; RESP 20; TEMP 36.7; O2SAT 98
--- NOTE | 2022-10-17 13:44 | PM.IMPN ---
Progress Note: A&P Assessment and Plan (1) Bacteremia: Code(s): R78.81 - Bacteremia Status: Resolved Assessment and Plan: Patient has Staph epidermidis growing in both anaerobic and anaerobic bottles. Dc vancomycin IV Pt is medically stable for placement 1. Normal left ventricular size thickness and systolic contractility. ? 2. Mildly sclerotic aortic valve. ? 3. No infectious vegetations were identified. (2) Generalized muscle weakness: Code(s): M62.81 - Muscle weakness (generalized) Status: Acute Assessment and Plan: PT and OT have been consulted for evaluation. sales office coordinator has been consulted for possible placement. CT head and MRI brain negative. Echo is negative. (3) Dementia: Code(s): F03.90 - Unspecified dementia, unspecified severity, without behavioral disturbance, psychotic disturbance, mood disturbance, and anxiety Status: Acute Assessment and Plan: continue with patient's Aricept and carbidopa levodopa states she is unable to take care of the patient at home. Consult case management for placement (4) Anxiety: Code(s): F41.9 - Anxiety disorder, unspecified Status: Acute Assessment and Plan: Continue with clonazepam. (5) Cellulitis: Code(s): L03.90 - Cellulitis, unspecified Status: Resolved Assessment and Plan: DC iv vancomycin Subjective Date/time seen: 10/17/22 13:44 Interval history: 67-year-old male patient who has a history of Alzheimer's dementia.? He lives with his .? The patient was recently admitted to [facility] in [place] for cellulitis of the lower extremity. Pt has Staph epidermidis growing in both anaerobic and anaerobic bottles Echo completed nil vegetations and DC iv ABX Pt is medically stable for placement Cellultis resolved Review of Systems Review of Systems: Pt is doing better, holding conversation Exam Const: General: cooperative, healthy appearing, comfortable, no acute distress, well developed, alert, awake, Physically active, average body habitus and well nourished Nutritional Appearance: average body habitus and well nourished Orientation/consciousness: oriented to person and oriented to place Limitations: no limitations HENMT: Head: normal to inspection, No palpable skull fracture present, normocephalic and atraumatic Ears: hearing grossly normal bilaterally and external ears normal Face/Nose/Sinus: Normal external nose present and Normal nares present Eyes: General: appearance normal, both eyes and all related structures Alignment and Position: alignment normal Periorbital: periorbital findings normal Eyelids: eyelids normal Pupils: Equal, round and reactive pupils present EOM: EOMs intact bilaterally Neck: Neck: normal visual inspection and full ROM Chest: Chest palpation & inspection: normal inspection of the chest Resp: Effort & Inspection: normal respiratory effort Auscultation: clear to auscultation bilaterally Cardio: Palpation: normal PMI Rate: regular rate Rhythm: regular rhythm Heart sounds: S1 normal heart sound present and S2 normal heart sound present Peripheral pulses: Peripheral pulses 2+ throughout GI: Inspection: normal to inspection Auscultation: normal bowel sounds Rectal Exam: deferred Back/Spine/Pelvis: Cervical Spine: cervical ROM normal Skin: General skin exam: normal color Lesions: no lesions Rashes: no rashes Trauma: no lacerations or abrasions Wounds: no wounds Hair: normal Nails: normal Neuro: General: oriented to person and oriented to place Cranial nerves: Yes Equal, round and reactive pupils present and Yes Normal hearing present Cognition (Neuro): normal cognition Speech: normal speech Motor exam (neuro): 5/5 motor strength present throughout Sensory Exam: normal sensation Extrem: General: normal to inspection Right upper extremity: normal to inspection and shoulder/upper arm Lef
[2022-10-17 14:00] VITALS: BP 108/60; PULSE 62; RESP 16; TEMP 37; O2SAT 98
[2022-10-17 20:38] VITALS: BP 137/84; PULSE 64; RESP 20; TEMP 36.9; O2SAT 100
[2022-10-17] MEDS: DONEPEZIL HCL 10 MG TABLET PO (21:02)
[2022-10-17] MEDS: clonazePAM (*CRX) 0.5 MG TABLET 1 MG PO (21:04)
[2022-10-18 06:00] VITALS: BP 154/104; PULSE 66; RESP 16; TEMP 37; O2SAT 100
[2022-10-18] MEDS: CARBIDOPA/LEVODOPA 25/100 MG TABLET 2 TABLET PO ×5 (06:00→20:01)
[2022-10-18] MEDS: CARBIDOPA/LEVODOPA 12.5/50 MG TABLET 1 TABLET PO ×5 (06:00→20:01)
--- NOTE | 2022-10-18 10:21 | PM.IMPN ---
Progress Note: A&P Assessment and Plan (1) Bacteremia: Code(s): R78.81 - Bacteremia Status: Resolved Assessment and Plan: Patient has Staph epidermidis growing in both anaerobic and anaerobic bottles. Dc vancomycin IV Pt is medically stable for placement 1. Normal left ventricular size thickness and systolic contractility. ? 2. Mildly sclerotic aortic valve. ? 3. No infectious vegetations were identified. (2) Generalized muscle weakness: Code(s): M62.81 - Muscle weakness (generalized) Status: Acute Assessment and Plan: PT and OT have been consulted for evaluation. emergency management coordinator has been consulted for possible placement. CT head and MRI brain negative. Echo is negative. (3) Dementia: Code(s): F03.90 - Unspecified dementia, unspecified severity, without behavioral disturbance, psychotic disturbance, mood disturbance, and anxiety Status: Acute Assessment and Plan: continue with patient's Aricept and carbidopa levodopa states she is unable to take care of the patient at home. Consult case management for placement (4) Anxiety: Code(s): F41.9 - Anxiety disorder, unspecified Status: Acute Assessment and Plan: Continue with clonazepam. (5) Cellulitis: Code(s): L03.90 - Cellulitis, unspecified Status: Resolved Assessment and Plan: DC iv vancomycin Cellulitis in left lower extremity has essentially resolved. Recently treated with cephalexin. Plan MARCUS: Mildly hypotensive this morning. Will give gentle fluid today. Recheck kidney function Subjective Date/time seen: 10/18/22 10:21 Interval history: 67-year-old male patient who has a history of Alzheimer's dementia.? He lives with his .? The patient was recently admitted to [facility] in [place] for cellulitis of the lower extremity. Pt has Staph epidermidis growing in both anaerobic and anaerobic bottles Echo completed nil vegetations and DC iv ABX Pt is medically stable for placement Cellultis resolved 10/18/2022 no overnight events reported. Chart reviewed. Presented with altered mental status. He was recently admitted at outside hospital for left lower extremity cellulitis. Is found to be bacteremic with Staph epidermidis. MRI brain is negative for any stroke. PT OT evaluated and need more therapy. He has significant dysphagia. Renal failure renal failure noted in the labs yesterday. Urine output adequate Review of Systems Review of Systems: All systems reviewed & are unremarkable except as noted in HPI and below Exam Narrative: GENERAL: Patient is awake mildly confused oriented to self knows he is in hospital. HEAD: Normocephalic, atraumatic. EYES: PERRLA and EOMI. ENT: Nares clear, no rhinorrhea or epistaxis. Mucous membranes dry. NECK: Supple. CHEST: No respiratory distress, breathing even and non labored HEART: Regular rate, sinus rhythm ABDOMEN:Non distended, soft to palpation, does not grimace with palpation, no rebound, rigidity or guarding EXTREMITIES: Spontaneously ranging all extremities.? Normal range of motion.? No edema in the bilateral lower extremities, greater in the left when compared to the right Skin: Warm, dry, no rash.? There is no significant erythema, purpura, or induration to the extremities. NEURO:No focal deficits. Alert and oriented x1-2 Objective Data Vital Signs Vital Signs: Vital Signs - 24 hr 10/17/22 14:00 10/17/22 20:38 10/18/22 06:00 Temperature 98.6 F 98.5 F 98.6 F Pulse Rate 62 64 66 Respiratory Rate 16 20 16 Blood Pressure 108/60 137/84 154/104 H Pulse Oximetry 98 100 100 Intake/Output Intake/Output: Intake & Output 10/15/22 10/16/22 10/17/22 10/18/22 23:59 23:59 23:59 23:59 Intake Total 2220 860 1170 0 Output Total 2350 1800 1050 500 Balance -130 -940 120 -500 Meds/Results Medications: Active Medications Generic Name Dose Route Start Last Admin Trade Name F
[2022-10-18 12:05] LABS: Basophils Absolute Auto 0.1 K/mm3 (0.0-0.1); Basophils Percent Auto 0.7 % (0.2-1.2); Eosinophils Absolute Auto 0.1 K/mm3 (0-0.3); Eosinophils Percent Auto 1.8 % (0-4.4); Hemoglobin 14.8 g/dL (14.0-18.0); Immature Granulocyte Absolute 0.04 K/mm3 (0.00-0.031); Immature Granulocyte Percent A 0.5 % (0-0.5); Lymphocytes Absolute Auto 0.46 K/mm3 (0.9-3.2); Mean Corpuscular HGB Conc 34.4 g/dl (32-36); Mean Corpuscular Volume 93.1 fl (80-100); Mean Platelet Volume 10.3 fl (7.4-10.4); Monocytes Absolute Auto 0.9 K/mm3 (0.1-0.6); Monocytes Percent Auto 12.2 % (2.6-8.5); Neutrophils Percent Auto 78.8 % (45.5-73.1); Platelet Count Result 172 k/mm3 (150-375); Red Blood Count 4.62 M/mm3 (4.6-6.20); Red Cell Distribution Width 12.8 % (11.5-14.5); White Blood Count 7.7 K/mm3 (4.5-10.0)
[2022-10-18 12:21] LABS: Alanine Aminotransferase 10 U/L (6-50); Albumin Level 3.7 g/dL (3.5-5.1); Alkaline Phosphatase 64 U/L (38-126); Anion Gap 7 mmol/L (8-16); Aspartate Amino Transferase 23 U/L (17-59); Bilirubin,Total 0.9 mg/dL (0.2-1.3); Blood Urea Nitrogen 34 mg/dL (9-20); Calcium 8.5 mg/dL (8.4-10.2); Carbon Dioxide 29 mmol/L (22-30); Chloride 102 mmol/L (98-107); Creatine Kinase 108 U/L (55-170); Estimated CRCL calculation 24 ml/min; Estimated Glomerular Filt Rate 19; Glucose 110 mg/dL (65-110); Magnesium 2.2 mg/dL (1.6-2.3); Potassium 3.9 mmol/L (3.4-5.0); Sodium 138 mmol/L (137-145)
[2022-10-18 12:44] LABS: Glucose Point of Care 109 mg/dl (65-105)
[2022-10-18] MEDS: SODIUM CHLORIDE 0.9% IV 1,000 ML 75 ML IV CONT (12:56)
[2022-10-18 14:00] VITALS: BP 112/67; PULSE 58; RESP 16; TEMP 36.4; O2SAT 97
[2022-10-18 20:01] VITALS: BP 149/75; PULSE 61; RESP 20; TEMP 36.2; O2SAT 98
[2022-10-18] MEDS: DONEPEZIL HCL 10 MG TABLET PO (20:01)
[2022-10-18] MEDS: clonazePAM (*CRX) 0.5 MG TABLET 1 MG PO (20:01)
[2022-10-19 01:38] LABS: Creatinine Urine 233.3 mg/dL; Urea Random Urine 742 MG/DL
[2022-10-19 01:40] LABS: Sodium Urine Random 62 meq/L
[2022-10-19 01:50] LABS: Appearance Urine Clear (Clear); Bilirubin Urine Negative (Negative); Blood Urine Negative (Negative); Color Urine Yellow (Yellow); Glucose Urine UA Negative (Negative); Ketones Urine Trace mg/dL (Negative); Leukocyte Esterase Ur Negative LEU/UL (NEGATIVE); Nitrate Urine Negative (Negative); Protein Urine Trace mg/dL (Negative); Specific Grav Ur 1.018 (1.001-1.035)
[2022-10-19 01:52] LABS: Add Urine Microscopic? NO
[2022-10-19 02:29] LABS: Eosinophil Urine None Seen % (None Seen); Urine Eos QC 2nd Tech Confirmed
[2022-10-19] MEDS: CARBIDOPA/LEVODOPA 12.5/50 MG TABLET 1 TABLET PO ×5 (05:02→20:55)
[2022-10-19] MEDS: CARBIDOPA/LEVODOPA 25/100 MG TABLET 2 TABLET PO ×5 (05:03→20:55)
[2022-10-19 05:21] VITALS: BP 155/82; PULSE 60; RESP 16; TEMP 36.6; O2SAT 100
[2022-10-19 05:40] LABS: Basophils Absolute Auto 0.1 K/mm3 (0.0-0.1); Basophils Percent Auto 0.9 % (0.2-1.2); Eosinophils Absolute Auto 0.2 K/mm3 (0-0.3); Eosinophils Percent Auto 2.7 % (0-4.4); Hematocrit 42.7 % (42.0-52.0); Hemoglobin 14.4 g/dL (14.0-18.0); Immature Granulocyte Absolute 0.03 K/mm3 (0.00-0.031); Immature Granulocyte Percent A 0.5 % (0-0.5); Lymphocytes Absolute Auto 0.63 K/mm3 (0.9-3.2); Lymphocytes Percent Auto 9.6 % (18.3-44.2); Mean Corpuscular HGB Conc 33.7 g/dl (32-36); Mean Corpuscular Hemoglobin 31.8 pg (26-34); Mean Corpuscular Volume 94.3 fl (80-100); Mean Platelet Volume 10.6 fl (7.4-10.4); Monocytes Absolute Auto 0.9 K/mm3 (0.1-0.6); Monocytes Percent Auto 13.1 % (2.6-8.5); Neutrophils Absolute Auto 4.8 K/mm3 (1.3-6.7); Neutrophils Percent Auto 73.2 % (45.5-73.1); Platelet Count Result 161 k/mm3 (150-375); Red Blood Count 4.53 M/mm3 (4.6-6.20); Red Cell Distribution Width 12.6 % (11.5-14.5); White Blood Count 6.6 K/mm3 (4.5-10.0)
[2022-10-19 05:56] LABS: Alanine Aminotransferase 6 U/L (6-50); Albumin Level 3.8 g/dL (3.5-5.1); Alkaline Phosphatase 72 U/L (38-126); Anion Gap 8 mmol/L (8-16); Aspartate Amino Transferase 23 U/L (17-59); Bilirubin,Total 0.9 mg/dL (0.2-1.3); Blood Urea Nitrogen 37 mg/dL (9-20); Calcium 8.4 mg/dL (8.4-10.2); Carbon Dioxide 28 mmol/L (22-30); Chloride 101 mmol/L (98-107); Estimated CRCL calculation 23 ml/min; Estimated Glomerular Filt Rate 19; Glucose 102 mg/dL (65-110); Magnesium 2.2 mg/dL (1.6-2.3); Potassium 3.9 mmol/L (3.4-5.0); Sodium 137 mmol/L (137-145)
[2022-10-19 15:11] VITALS: BP 151/82; PULSE 55; RESP 18; TEMP 36.4; O2SAT 98
--- NOTE | 2022-10-19 17:02 | PM.IMPN ---
Progress Note: A&P Assessment and Plan (1) Bacteremia: Code(s): R78.81 - Bacteremia Status: Resolved Assessment and Plan: Patient has Staph epidermidis growing in both anaerobic and anaerobic bottles. Dc vancomycin IV Pt is medically stable for placement 1. Normal left ventricular size thickness and systolic contractility. ? 2. Mildly sclerotic aortic valve. ? 3. No infectious vegetations were identified. (2) Generalized muscle weakness: Code(s): M62.81 - Muscle weakness (generalized) Status: Acute Assessment and Plan: PT and OT have been consulted for evaluation. academic coordinator has been consulted for possible placement. CT head and MRI brain negative. Echo is negative. (3) Dementia: Code(s): F03.90 - Unspecified dementia, unspecified severity, without behavioral disturbance, psychotic disturbance, mood disturbance, and anxiety Status: Acute Assessment and Plan: continue with patient's Aricept and carbidopa levodopa states she is unable to take care of the patient at home. Consult case management for placement (4) Anxiety: Code(s): F41.9 - Anxiety disorder, unspecified Status: Acute Assessment and Plan: Continue with clonazepam. (5) Cellulitis: Code(s): L03.90 - Cellulitis, unspecified Status: Resolved Assessment and Plan: DC iv vancomycin Cellulitis in left lower extremity has essentially resolved. Recently treated with cephalexin. Plan AMRCUS: Mildly hypotensive . IV fluids started. Renal failure continues to worsen but likely at the plateau. Urinalysis is bland. Urine eosinophil is negative. Urine sodium is 69. Renal ultrasound is negative. Could be vancomycin induced. Continue to monitor urine output and renal function. Likely improvement in short period. If continues to worsen renal consultation Subjective Date/time seen: 10/19/22 17:02 Interval history: 67-year-old male patient who has a history of Alzheimer's dementia.? He lives with his .? The patient was recently admitted to [facility] in [place] for cellulitis of the lower extremity. Pt has Staph epidermidis growing in both anaerobic and anaerobic bottles Echo completed nil vegetations and DC iv ABX Pt is medically stable for placement Cellultis resolved 10/18/2022 no overnight events reported. Chart reviewed. Presented with altered mental status. He was recently admitted at outside hospital for left lower extremity cellulitis. Is found to be bacteremic with Staph epidermidis. MRI brain is negative for any stroke. PT OT evaluated and need more therapy. He has significant dysphagia. Renal failure renal failure noted in the labs yesterday. Urine output adequate 10/19/2022 events. Patient back to his baseline per family. Speech is mumbled that is his baseline family. He has underlying Parkinson's disease. Labs reviewed. Urine output. Blood pressure has improved. Review of Systems Review of Systems: All systems reviewed & are unremarkable except as noted in HPI and below Exam Narrative: GENERAL: Patient is awake mildly confused oriented to self knows he is in hospital. HEAD: Normocephalic, atraumatic. EYES: PERRLA and EOMI. ENT: Nares clear, no rhinorrhea or epistaxis. Mucous membranes dry. NECK: Supple. CHEST: No respiratory distress, breathing even and non labored HEART: Regular rate, sinus rhythm ABDOMEN:Non distended, soft to palpation, does not grimace with palpation, no rebound, rigidity or guarding EXTREMITIES: Spontaneously ranging all extremities.? Normal range of motion.? No edema in the bilateral lower extremities, greater in the left when compared to the right Skin: Warm, dry, no rash.? There is no significant erythema, purpura, or induration to the extremities. NEURO:No focal deficits. Alert and oriented x1-2 Objective Data Vital Signs Vital Signs: Vital Signs - 24 hr 10/18/22
[2022-10-19] MEDS: SODIUM CHLORIDE 0.9% IV 1,000 ML 100 ML IV CONT (17:51)
[2022-10-19 20:40] VITALS: BP 144/85; PULSE 62; RESP 16; TEMP 36.6; O2SAT 97
[2022-10-19] MEDS: DONEPEZIL HCL 10 MG TABLET PO (20:55)
[2022-10-20 04:19] VITALS: BP 156/89; PULSE 66; RESP 18; TEMP 36.6; O2SAT 98
[2022-10-20] MEDS: CARBIDOPA/LEVODOPA 25/100 MG TABLET 2 TABLET PO ×3 (05:42→12:30)
[2022-10-20] MEDS: CARBIDOPA/LEVODOPA 12.5/50 MG TABLET 1 TABLET PO ×3 (05:42→12:29)
[2022-10-20 05:50] LABS: Basophils Percent Auto 0.5 % (0.2-1.2); Eosinophils Absolute Auto 0.1 K/mm3 (0-0.3); Eosinophils Percent Auto 1.9 % (0-4.4); Hemoglobin 13.8 g/dL (14.0-18.0); Immature Granulocyte Absolute 0.03 K/mm3 (0.00-0.031); Immature Granulocyte Percent A 0.4 % (0-0.5); Lymphocytes Percent Auto 8.2 % (18.3-44.2); Mean Corpuscular HGB Conc 33.7 g/dl (32-36); Mean Corpuscular Hemoglobin 31.4 pg (26-34); Mean Corpuscular Volume 93.2 fl (80-100); Mean Platelet Volume 10.6 fl (7.4-10.4); Monocytes Absolute Auto 0.9 K/mm3 (0.1-0.6); Monocytes Percent Auto 12.3 % (2.6-8.5); Neutrophils Absolute Auto 5.6 K/mm3 (1.3-6.7); Neutrophils Percent Auto 76.7 % (45.5-73.1); Platelet Count Result 178 k/mm3 (150-375); Red Cell Distribution Width 12.2 % (11.5-14.5); White Blood Count 7.3 K/mm3 (4.5-10.0)
[2022-10-20 05:55] LABS: Alanine Aminotransferase 6 U/L (6-50); Albumin Level 3.7 g/dL (3.5-5.1); Alkaline Phosphatase 61 U/L (38-126); Anion Gap 7 mmol/L (8-16); Aspartate Amino Transferase 22 U/L (17-59); Bilirubin,Total 0.9 mg/dL (0.2-1.3); Blood Urea Nitrogen 38 mg/dL (9-20); Calcium 8.4 mg/dL (8.4-10.2); Carbon Dioxide 27 mmol/L (22-30); Chloride 104 mmol/L (98-107); Estimated CRCL calculation 24 ml/min; Estimated Glomerular Filt Rate 19; Glucose 98 mg/dL (65-110); Magnesium 2.2 mg/dL (1.6-2.3); Potassium 4.2 mmol/L (3.4-5.0); Sodium 138 mmol/L (137-145)
--- NOTE | 2022-10-20 09:25 | PCNWS ---
Weekly nutritional screen. Patient is tolerating current diet with adequate intake. 50-100% intake reported. No weight loss reported. No nutritional needs at this time.
--- NOTE | 2022-10-20 11:44 | PM.DS ---
DS: Admitting Diagnosis Discharge Date October 20, 2022 Admitting Diagnosis altered mental status DS: Discharge Diagnosis Discharge Diagnosis (1) Bacteremia: Code(s): R78.81 - Bacteremia Status: Resolved Assessment and Plan: Patient has Staph epidermidis growing in both anaerobic and anaerobic bottles. Dc vancomycin IV Pt is medically stable for placement 1. Normal left ventricular size thickness and systolic contractility. ? 2. Mildly sclerotic aortic valve. ? 3. No infectious vegetations were identified. (2) Generalized muscle weakness: Code(s): M62.81 - Muscle weakness (generalized) Status: Acute Assessment and Plan: PT and OT have been consulted for evaluation. online content coordinator has been consulted for possible placement. CT head and MRI brain negative. Echo is negative. (3) Dementia: Code(s): F03.90 - Unspecified dementia, unspecified severity, without behavioral disturbance, psychotic disturbance, mood disturbance, and anxiety Status: Acute Assessment and Plan: continue with patient's Aricept and carbidopa levodopa states she is unable to take care of the patient at home. Consult case management for placement (4) Anxiety: Code(s): F41.9 - Anxiety disorder, unspecified Status: Acute Assessment and Plan: Continue with clonazepam. (5) Cellulitis: Code(s): L03.90 - Cellulitis, unspecified Status: Resolved Assessment and Plan: DC iv vancomycin Cellulitis in left lower extremity has essentially resolved. Recently treated with cephalexin. Plan MARCUS: Mildly hypotensive . IV fluids started. Renal failure continues to worsen but likely at the plateau. Urinalysis is bland. Urine eosinophil is negative. Urine sodium is 69. Renal ultrasound is negative. Could be vancomycin induced. Continue to monitor urine output and renal function. Likely improvement in short period. If continues to worsen renal consultation DS: Summary Hospital Course Hospital Course: altered mental status, likely secondary to worsening dementia. Patient can be discharged to facility. Will likely need Memory Care. Time Spent with Patient Time attestation: Total time spent providing and/or coordinating discharge services: Exam Narrative: GENERAL: Patient is awake mildly confused oriented to self knows he is in hospital. HEAD: Normocephalic, atraumatic. EYES: PERRLA and EOMI. ENT: Nares clear, no rhinorrhea or epistaxis. Mucous membranes dry. NECK: Supple. CHEST: No respiratory distress, breathing even and non labored HEART: Regular rate, sinus rhythm ABDOMEN:Non distended, soft to palpation, does not grimace with palpation, no rebound, rigidity or guarding EXTREMITIES: Spontaneously ranging all extremities.? Normal range of motion.? No edema in the bilateral lower extremities, greater in the left when compared to the right Skin: Warm, dry, no rash.? There is no significant erythema, purpura, or induration to the extremities. NEURO:No focal deficits. Alert and oriented x1-2 DS: Data Data Completed and Pending Labs on day of discharge: Labs from last 24 hours 10/20/22 05:20 WBC 7.3 RBC 4.40 L Hgb 13.8 L Hct 41.0 L MCV 93.2 MCH 31.4 MCHC 33.7 RDW 12.2 Plt Count 178 MPV 10.6 H Immature Gran % (Auto) 0.4 Neut % (Auto) 76.7 H Lymph % (Auto) 8.2 L [place] % (Auto) 12.3 H Eos % (Auto) 1.9 Baso % (Auto) 0.5 Lymph # (Auto) 0.60 L [place] # (Auto) 0.9 H Eos # (Auto) 0.1 Baso # (Auto) 0.0 Abs Immat Gran (auto) 0.03 Absolute Neuts (auto) 5.6 Absolute Nucleated RBC 0.0 Nucleated RBC % 0.0 Sodium 138 Potassium 4.2 Chloride 104 Carbon Dioxide 27 Anion Gap 7 L BUN 38 H Creatinine 3.20 H Estim Creat Clear Calc 24 Estimated GFR 19 L Glucose 98 Calcium 8.4 Magnesium 2.2 Total Bilirubin 0.9 AST 22 ALT 6 Alkaline Phosphatase 61 Total Protein 7.0 Albumin 3.7 Prelimina
[2022-10-20 13:57] LABS: EDCOVIDSCREEN Negative (Negative)
== END 2022-10-20 16:30 | disposition home or self-care (01) | DRG 57 ==
LOC: ANHED 15:22 → ANH3MEDSUR 15:34 → ANH3MED 16:18
PROVIDERS: Family Medicine; Hospitalist; Internal Medicine; Nurse Practitioner; Admitting Provider Family Medicine; Emergency Provider Emergency Medicine; PCP Nurse Practitioner; Visit Provider Chiropractor
DX: G30.9 Alzheimer's disease, unspecified (principal); L03.116 Cellulitis of left lower limb; R78.81 Bacteremia; N17.9 Acute kidney failure, unspecified; F02.80 Dementia in other diseases classified elsewhere, unspecified severity, without behavioral disturbance, psychotic disturbance, mood disturbance, and anxiety; M62.81 Muscle weakness (generalized); B95.7 Other staphylococcus as the cause of diseases classified elsewhere; F41.9 Anxiety disorder, unspecified; R13.10 Dysphagia, unspecified; Z20.822 Contact with and (suspected) exposure to COVID-19
CPT/HCPCS: 36415; 70450; 70553; 71045; 76775; 80048; 80053; 80202; 80307; 81003; 82140; 82550; 82565; 82570; 82803; 82948; 83605; 83735; 83880; 84300; 84443; 84484; 84540; 85025; 85027; 85055; 85610; 85730; 85999; 87040; 87147; 87181; 87186; 87426; 87637; 92610; 92611; 93005; 93308; 93970; 97110; 97116; 97161; 97165; 97530; 97535; 99285; A9270; A9577; C9803; G0378; J3370; J7030

== ENCOUNTER 2022-10-24 21:59 | Emergency (ER) | payer MEDICARE, SELFPAY ==
--- NOTE | ~2022-10-24 | XR_ITS ---
EXAMINATION: XR foot RT min 3V DATE: 10/24/2022 23:01 INDICATION: Right foot pain. TECHNIQUE: 4 views of right foot were obtained. COMPARISON: None. FINDINGS: There is moderate hallux valgus. No fracture. There is mild osteoarthritis of first metatar sophalangeal joint and talonavicular joint. There are enthesophytes at the posterior and plantar aspe cts of calcaneal tuberosity. There is soft tissue swelling overlying the fifth metatarsophalangeal anastasiia int. IMPRESSION: 1. Moderate hallux valgus. 2. Mild polyarticular osteoarthritis. Reviewed, dictated and finalized at location A.
--- NOTE | 2022-10-24 22:03 | ECG_ITS ---
Measurements Intervals [place] Rate: 57 P: 2 VA: 181 QRS: -19 QRSD: 104 T: 4 QT: 417 QTc: 408 Interpretive Statements SINUS BRADYCARDIA DELAYED PRECORDIAL R/S TRANSITION VOLTAGE CRITERIA FOR LVH BORDERLINE T WAVE ABNORMALITY- INFERIOR LEADS BORDERLINE ECG COMPARED TO ECG 10/12/2022 13:46:02 SINUS BRADYCARDIA NOW PRESENT Electronically Signed On 10-25-2022 6:44:50 CDT by Ricardo Rosa D.O.
[2022-10-24 22:06] VITALS: BP 161/93; PULSE 60; RESP 15; TEMP 36.6; O2SAT 97
--- NOTE | 2022-10-24 22:31 | ED.RECABL ---
HPI - Recheck/Abnormal Lab/Rx General Chief Complaint: Recheck/Abnormal Lab/Rx Stated Complaint: abdnormal labs Time Seen by Provider: 10/24/22 22:01 Source: patient and EMS Mode of arrival: EMS Limitations: dementia History of Present Illness HPI narrative: Patient is a 67-year-old male with a history of Alzheimer's dementia, recent mission to this facility for recurrent cellulitis left lower extremity, altered mental status, presenting to the emergency department for evaluation of abnormal lab findings. Reportedly, patient with abnormal BUN/creatinine, sent here from care facility for evaluation. The time of assessment, patient is oriented to person, place, not to time, mentating at baseline. He is not a reliable historian secondary to his dementia. He does report right great toe pain that is mild and there is small amount of redness at the base of the toe. He denies history of gout. He does have a history of cellulitis in this lower extremity. Denies leg swelling or calf pain. Denies other complaints of pain although history limited secondary to his baseline dementia. I reviewed the patient's recent admission past medical history. I did initially admit the patient October 12, patient was treated for recurrent cellulitis with vancomycin, blood cultures grew Staphylococcus epidermitis. Patient had uptrending creatinine with discharge October 20, thought to be potentially medication induced. He had a renal ultrasound with his previous admission that was negative. Related Data Home Medications Medication Instructions Recorded Confirmed carbidopa 25 mg-levodopa 100 mg 2.5 tablet PO Q4H 10/12/22 10/12/22 tablet cephalexin 500 mg capsule 500 mg PO QID 10/12/22 10/12/22 clonazepam 0.5 mg tablet 1 mg PO HS PRN Insomnia 10/12/22 10/12/22 donepezil 10 mg tablet 10 mg PO HS 10/12/22 10/12/22 Allergies Allergy/AdvReac Type Severity Reaction Status Date / Time No Known Allergies Allergy Verified 10/12/22 15:38 Review of Systems Review of Systems: ROS unobtainable: Yes unobtainable due to mental status PMFSH Past Medical History Medical History Alzheimer's dementia Anxiety Cellulitis Surgical History Surgical History Surgical history unknown Family History Family History (Updated 10/12/22 @ 23:49 by Chapis Hawk NP) Unknown No problems noted. Social History Social History Social History: the patient lives with his . 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 The patient stated that he had 2 children. Code status full code Smoking status: Former smoker Alcohol intake: current Drinks per week: 2 Substance use: never Spiritual care concerns: No Exam Narrative: GENERAL: Awake, alert, conversant HEAD: Normocephalic, atraumatic. EYES: PERRLA and EOMI. ENT: Nares clear, no rhinorrhea or epistaxis. Mucous membranes moist. NECK: Supple. CHEST: No respiratory distress, breathing even and non labored HEART: Regular rate, sinus rhythm ABDOMEN:Non distended, non tender EXTREMITIES: Normal range of motion. No significant erythema or edema of the right foot. DP pulses 2+. No crepitus, no weeping fluid, no streaking erythema. No lower extremity edema, erythema. SKIN: Warm, dry, no rash. NEURO:No focal deficits. Alert and oriented x2 Course Vital Signs Vital signs: Vital Signs Temperature 36.6 C 10/24/22 22:06 Pulse Rate 60 10/24/22 22:06 Respiratory Rate 15 10/24/22 22:06 Blood Pressure 161/93 H 10/24/22 22:06 Pulse Oximetry 97 10/24/22 22:06 Oxygen Delivery Room Air 10/24/22 22:06 Temperature 36.6 C 10/24/22 22:06 Pulse Rate 56 L 10/24/22 23:43 Respiratory Rate 13 10/24/22 23:43 Blood Pressure 179/90 H 10/24/22 23:43 Pulse Oximetry 99 10/24/22 23:43 O
[2022-10-24 22:50] LABS: Appearance Urine Clear (Clear); Bilirubin Urine Negative (Negative); Blood Urine Negative (Negative); Color Urine Yellow (Yellow); Glucose Urine UA Negative (Negative); Ketones Urine Negative (Negative); Leukocyte Esterase Ur Negative LEU/UL (Negative); Nitrate Urine Negative (Negative); Protein Urine Negative (Negative); Specific Grav Ur 1.009 (1.001-1.035); Urobilinogen Urine 0.2 mg/dL (<2.0); pH Urine 5.5 (5.0-9.0)
[2022-10-24 22:56] LABS: Basophils Percent Auto 0.7 % (0.2-1.2); Eosinophils Absolute Auto 0.2 K/mm3 (0-0.3); Eosinophils Percent Auto 2.9 % (0-4.4); Hematocrit 38.9 % (42.0-52.0); Hemoglobin 13.3 g/dL (14.0-18.0); Immature Granulocyte Absolute 0.03 K/mm3 (0.00-0.031); Immature Granulocyte Percent A 0.5 % (0-0.5); Lymphocytes Absolute Auto 0.65 K/mm3 (0.9-3.2); Lymphocytes Percent Auto 11.7 % (18.3-44.2); Mean Corpuscular HGB Conc 34.2 g/dl (32-36); Mean Corpuscular Hemoglobin 31.9 pg (26-34); Mean Corpuscular Volume 93.3 fl (80-100); Mean Platelet Volume 10.6 fl (7.4-10.4); Monocytes Absolute Auto 0.9 K/mm3 (0.1-0.6); Neutrophils Absolute Auto 3.7 K/mm3 (1.3-6.7); Neutrophils Percent Auto 67.2 % (45.5-73.1); Platelet Count Result 192 k/mm3 (150-375); Red Blood Count 4.17 M/mm3 (4.6-6.20); Red Cell Distribution Width 12.4 % (11.5-14.5); White Blood Count 5.5 K/mm3 (4.5-10.0)
[2022-10-24 22:58] LABS: Add Urine Microscopic? NO
[2022-10-24] MEDS: SODIUM CHLORIDE 0.9% IV 1,000 ML 999 ML IV CONT (22:58)
[2022-10-24 23:17] LABS: Alanine Aminotransferase 9 U/L (6-50); Albumin Level 3.9 g/dL (3.5-5.1); Alkaline Phosphatase 73 U/L (38-126); Anion Gap 7 mmol/L (8-16); Aspartate Amino Transferase 20 U/L (17-59); Bilirubin,Total 0.6 mg/dL (0.2-1.3); Blood Urea Nitrogen 41 mg/dL (9-20); CRP 1.8 mg/dL (<1.0); Calcium 8.5 mg/dL (8.4-10.2); Carbon Dioxide 31 mmol/L (22-30); Chloride 100 mmol/L (98-107); Estimated Glomerular Filt Rate 19; Glucose 108 mg/dL (65-110); Lipase 97 U/L (23-300); Potassium 4.4 mmol/L (3.4-5.0); Sodium 138 mmol/L (137-145)
[2022-10-24 23:32] LABS: Erythrocyte Sedimentation Rate 27 mm/hr (0-20)
[2022-10-24 23:43] VITALS: BP 179/90; PULSE 56; RESP 13; O2SAT 99
[2022-10-25 02:05] VITALS: BP 164/71; PULSE 78; RESP 15; O2SAT 100
[2022-10-25 03:15] VITALS: BP 170/100; PULSE 65; RESP 18; TEMP 36.6; O2SAT 97
== END 2022-10-25 03:25 ==
PROVIDERS: Emergency Provider Emergency Medicine; PCP Nurse Practitioner
DX: N18.9 Chronic kidney disease, unspecified (principal); G30.9 Alzheimer's disease, unspecified; F02.80 Dementia in other diseases classified elsewhere, unspecified severity, without behavioral disturbance, psychotic disturbance, mood disturbance, and anxiety; F41.9 Anxiety disorder, unspecified; Z87.891 Personal history of nicotine dependence; R00.1 Bradycardia, unspecified; R94.31 Abnormal electrocardiogram [ECG] [EKG]; M20.11 Hallux valgus (acquired), right foot; M19.071 Primary osteoarthritis, right ankle and foot
CPT/HCPCS: 36415; 73630; 80053; 81003; 83690; 85025; 85652; 86140; 93005; 96360; 99283; J7030

== ENCOUNTER 2024-03-24 10:30 | Inpatient (IN) | payer MEDICARE, SELFPAY ==
[2024-03-24] VITALS (10 sets, daily range): BP systolic 106–160; BP diastolic 57–86; PULSE 69–95; RESP 12–18; TEMP 36.3–37; O2SAT 96–99; BMI 25.9
--- NOTE | ~2024-03-24 | CT_ITS ---
CT brain wo con Ordering provider: Tai Mack MD History: 68 years Male with . AMS . Comparison: October 12, 2022 Technique: CT of the head without contrast. Radiation reduction technique utilized.The dose-length product was 681 mGy-cm. FINDINGS: BRAIN PARENCHYMA AND CSF SPACES: Mild leukoaraiosis and diffuse cortical atrophy. Mild atheromatous d isease. No midline shift, mass effect or hemorrhage. The brain parenchyma and CSF spaces are otherwi se normal. VISUALIZED PARANASAL SINUSES: Well aerated. MASTOIDS: Well aerated. BONES: The bones appear intact. SOFT TISSUES: Visualized nasopharynx is normal. Superficial soft tissues are normal. IMPRESSION: No acute intracranial findings. Reviewed, dictated and finalized at location A.
--- NOTE | ~2024-03-24 | XR_ITS ---
XR ankle RT min 3V 03/24/2024 11:23 INDICATION: Right ankle pain PROCEDURE: 4 views right ankle COMPARISON: No prior studies for comparison. FINDINGS: Fracture, dislocation or subluxation is not identified. Ankle mortise intact. The soft tiss ues appear within normal limits. No foreign bodies are identified. IMPRESSION: 1: NO ACUTE BONE OR JOINT ABNORMALITY IDENTIFIED. Reviewed, dictated and finalized at location B.
--- NOTE | ~2024-03-24 | CT_ITS ---
Clinical Indication: Altered mental status, pneumonia, UTI CT Scan of the Chest, Abdomen, and Pelvis with Contrast: Technique: Contiguous sections were acquired throughout the chest, abdomen, and pelvis after intraven ous administration of 100 cc of Omnipaque 350. Dose reduction technique was used on this scan by brittany fraire automated exposure control and iterative reconstruction technique. The dose-length product (DL P) was 1593.77 mGy-cm. Findings: Mildly prominent mediastinal lymph nodes are present, nonspecific. No axillary lymphadenopathy.. Smal l pericardial effusion present. No aortic dissection evident. Ascending aorta measures 5.1 cm in diam eter. No large central pulmonary embolus evident. There is no evidence of pleural or pericardial effusion. The lungs are clear, aside from minimal dependent atelectatic change. The liver, spleen, pancreas, gallbladder, adrenals and kidneys are within normal limits. There are at herosclerotic calcifications of the aorta. No lymphadenopathy. Large amount of stool suggests fecal impaction and constipation. Urinary bladder is unremarkable. No pelvic mass seen. No ascites. Impression: 5.1 cm ascending aortic aneurysm. Small pericardial effusion. Nonspecific mildly enlarged mediastinal lymph nodes. Fecal impaction/constipation. Reviewed, dictated and finalized at [facility]. Impression: 5.1 cm ascending aortic aneurysm. Small pericardial effusion. Nonspecific mildly enlarged mediastinal lymph nodes. Fecal impaction/constipation.
--- NOTE | ~2024-03-24 | US_ITS ---
EXAMINATION: US carotid duplex BI DATE: 03/25/2024 14:51 INDICATION: Unresponsive episode. TECHNIQUE: Grayscale, color Doppler, and pulsed Doppler images of the cervical carotid arteries were obtained. The degree of vessel stenosis is placed in one of the following categories: normal, <50%, 5 0-69%, >=70% but less than near-occlusion, near-occlusion, or total occlusion. Note that percent sten osis relative to normal distal artery lumen diameter is indirectly measured from velocity measurement s as described by Ron, et al. Radiology 2003; 229:340-346. COMPARISON: None. FINDINGS: RIGHT: The right common carotid artery (CCA) peak systolic velocity (PSV) is 97 cm/s. The right internal car otid artery (ICA) PSV is 200 cm/s. The right ICA end-diastolic velocity (EDV) is 48 cm/s. The right I CA/CCA PSV ratio is 2.1. Grayscale and color Doppler images yield an estimate of 50-69% diameter redu ction from plaque in the ICA. The external carotid artery (ECA) PSV is 135 cm/s. There is antegrade f low in the right vertebral artery. LEFT: The left CCA PSV is 142 cm/s. The left ICA PSV is 94 cm/s. The left ICA EDV is 17 cm/s. The left ICA/ CCA PSV ratio is 0.7. Grayscale and color Doppler images yield an estimate of <50% diameter reduction from plaque in the ICA. The ECA PSV is 114 cm/s. There is antegrade flow in the left vertebral arter y. IMPRESSION: 1. 50-69% stenosis in the right internal carotid artery. 2. <50% stenosis in the left internal carotid artery. Reviewed, dictated and finalized at location A.
--- NOTE | ~2024-03-24 | XR_ITS ---
XR abdomen/kub 1V 03/27/2024 08:47 INDICATION: Flank pain TECHNIQUE: KUB COMPARISON: CT dated 03/24/2024 FINDINGS: Bowel gas pattern is normal. Moderate colonic fecal loading. There is no evidence of free a ir, mass, organomegaly, ascites or obstruction. No abnormal calculi are seen. The bones appear inta ct. IMPRESSION: 1: No acute abdominal abnormality identified. Reviewed, dictated and finalized at location B.
--- NOTE | 2024-03-24 11:06 | ED.GENADULT ---
HPI - General Adult General Chief complaint: Weakness Stated complaint: Altered mental status Time Seen by Provider: 03/24/24 10:48 History of Present Illness HPI narrative: 68-year-old male presenting to the emergency department for evaluation for altered mental status. Patient does have baseline history dementia and Parkinson's. Patient is currently at a memory care unit and is on antibiotics for pneumonia and urinary tract infection. When the retirement went to wake up the patient he was unresponsive in the had difficulty getting vital signs. Upon arrival to the emergency department patient is alert appropriate at his typical baseline. Patient is responsive and has no major complaints. Related Data Home Medications Medication Instructions Recorded Confirmed carbidopa 25 mg-levodopa 100 mg 2.5 tablet PO TID 10/12/22 03/24/24 tablet donepezil 10 mg tablet 10 mg PO DAILY 10/12/22 03/24/24 Saccharomyces boulardii 250 mg 250 mg PO DAILY 03/24/24 03/24/24 capsule (Probiotic (S.boulardii)) acetaminophen 325 mg tablet 650 mg PO TID 03/24/24 03/24/24 (Tylenol) baclofen 5 mg tablet 5 mg PO TID PRN Cramps 03/24/24 03/24/24 carbidopa 25 mg-levodopa 100 mg 3 tablet PO HS 03/24/24 03/24/24 tablet ergocalciferol (vitamin D2) 1,250 50,000 unit PO WEEKLY 03/24/24 03/24/24 mcg (50,000 unit) capsule (Vitamin D2) hydrocortisone 1 % topical cream 1 applic topical TID PRN 03/24/24 03/24/24 (Preparation H Hydrocortisone) Hemorrhoids loperamide 2 mg capsule 2 mg PO PRN PRN Loose Stool 03/24/24 03/24/24 melatonin 10 mg capsule 10 mg PO HS 03/24/24 03/24/24 polyethylene glycol 3350 17 gram 17 g PO DAILY PRN Constipation 03/24/24 03/24/24 oral powder packet (Miralax) tramadol 50 mg tablet 50 mg PO Q8H PRN Pain 03/24/24 03/24/24 Allergies Allergy/AdvReac Type Severity Reaction Status Date / Time No Known Allergies Allergy Verified 03/24/24 15:48 Review of Systems Review of Systems: All systems reviewed & are unremarkable except as noted in HPI and below PMFSH Past Medical History Medical History Alzheimer's dementia Anxiety Cellulitis Surgical History Surgical History Surgical history unknown Family History Family History (Updated 03/24/24 @ 15:58 by Janet Hoover RN) Unknown No problems noted. Mother Lung cancer Sibling Breast cancer Social History Social History Social History: the patient lives with his . 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 The patient stated that he had 2 children. Code status full code Smoking status: Former smoker Smoking end date: 03/24/74 Alcohol intake: never Drinks per week: 2 Substance use: never Spiritual care concerns: No Exam Narrative: APPEARANCE: Somnolent but well-appearing HEAD: normocephalic, atraumatic. EYES: PERRLA/EOMI, conjunctivae clear. NOSE: Normal no drainage EARS:TMS clear with good light reflex. THROAT: Pharynx clear, no exudate. NECK: Supple. No adenopathy, no masses. RESPIRATORY: Airway patent, respirations nonlabored. Clear to auscultation bilaterally, no rales, rhonchi, wheezing. CARDIOVASCULAR: Regular rate and rhythm without murmurs rubs or gallops. ABDOMINAL: Soft, nontender, nondistended, normal bowel sounds MUSCULOSKELETAL: Moves all extremities. Strength/ROM intact, No edema, No calf tenderness. NEURO: Alert. At typical baseline SKIN: Warm, dry. Normal Color Course Vital Signs Vital signs: Vital Signs Temperature 97.8 F 03/24/24 10:43 Pulse Rate 95 03/24/24 10:43 Blood Pressure 118/67 03/24/24 10:43 Pulse Oximetry 98 03/24/24 10:43 Oxygen Delivery Room Air 03/24/24 10:43 Temperature 97.8 F 03/24/24 14:25 Pulse Rate 76 03/24/24 16:00 Respiratory Rate 16 03/24/24 14:25 Blood Pressure 128/68 03/24/24 14:25 Pulse Oximetry 98 03/24/24 14:25 Oxygen Delivery Room Air 03/24/24 10:43 Medical Decision Making [facility] Narrative Medical decision making narrative: 68-year-old male presents emergency department for evaluation after having a prolonged unresponsive episode this morning. Patient is afebrile with no leukocytosis hemoglobin of 12.7. INR is 1.1. Patient has no acute abnormalities on his CMP, patient's creatinine is 1.5 and this is better than his typical baseline. UA was negative for infection. Patient was negative for influenza RSV and for COVID. Head CT was negative for acute intracranial abnormality, patient was complaining of some right ankle pain but x-ray was negative, CT scan did show evidence of 5.1 cm abdominal aortic aneurysm. Family does not wish to pursue any surgical intervention for this. They are comfortable with the patient staying at her facility that does not have vascular. Case was discussed with hospitalist patient was accepted for admission for the prolonged syncopal episode. Patient was stable time of admission. Differential Diagnosis Differential Diagnosis: Pneumonia, RSV, influenza, syncope, TIA subdural hematoma, subarachnoid hemorrhage Vital Signs Vital Signs: Vital Signs Temperature 97.8 F 03/24/24 10:43 Pulse Rate 95 03/24/24 10:43 Blood Pressure 118/67 03/24/24 10:43 Pulse Oximetry 98 03/24/24 10:43 Oxygen Delivery Room Air 03/24/24 10:43 Temperature 97.8 F 03/24/24 14:25 Pulse Rate 76 03/24/24 16:00 Respiratory Rate 16 03/24/24 14:25 Blood Pressure 128/68 03/24/24 14:25 Pulse Oximetry 98 03/24/24 14:25 Oxygen Delivery Room Air 03/24/24 10:43 Lab Data Lab results reviewed: Yes I reviewed the patient's lab results. 03/24/24 11:10 03/24/24 11:10 Labs: Lab Results 03/24/24 03/24/24 Range/Units 11:10 13:14 WBC 9.7 (4.5-10.0) K/mm3 RBC 3.97 L (4.6-6.20) M/mm3 Hgb 12.7 L (14.0-18.0) g/dL Hct 37.6 L (42.0-52.0) % MCV 94.7 (80-100) fl MCH 32.0 (26-34) pg MCHC 33.8 (32-36) g/dl RDW 12.6 (11.5-14.5) % Plt Count 155 (150-375) k/mm3 MPV 10.0 (7.4-10.4) fl Immature Gran % (Auto) 0.3 (0-0.5) % Neut % (Auto) 78.7 H (45.5-73.1) % Lymph % (Auto) 12.6 L (18.3-44.2) % Andrew % (Auto) 7.7 (2.6-8.5) % Eos % (Auto) 0.3 (0-4.4) % Baso % (Auto) 0.4 (0.2-1.2) % Lymph # (Auto) 1.22 (0.9-3.2) K/mm3 Andrew # (Auto) 0.8 H (0.1-0.6) K/mm3 Eos # (Auto) 0.0 (0-0.3) K/mm3 Baso # (Auto) 0.0 (0.0-0.1) K/mm3 Abs Immat Gran (auto) 0.03 (0.00-0.031) K/mm3 Absolute Neuts (auto) 7.6 H (1.3-6.7) K/mm3 Absolute Nucleated RBC 0.000 (0.0-0.012) K/mm3 Nucleated RBC % 0.0 (0.0-0.2) % PT 14.1 (11.1-14.7) Seconds INR 1.1 APTT 33.5 (22.3-36.8) Seconds Sodium 142 (137-145) mmol/L Potassium 3.4 (3.4-5.0) mmol/L Chloride 105 (98-107) mmol/L Carbon Dioxide 28 (22-30) mmol/L Anion Gap 9 (4-12) mmol/L BUN 28 H D (9-20) mg/dL Creatinine 1.50 H (0.7-1.3) mg/dL Estim Creat Clear Calc 49 ml/min Estimated GFR 46 L (59 - ) Glucose 102 (65-110) mg/dL Calcium 9.1 (8.4-10.2) mg/dL Total Bilirubin 0.6 (0.2-1.3) mg/dL AST 15 L (17-59) U/L ALT 12 (6-50) U/L Alkaline Phosphatase 75 (38-126) U/L Total Protein 7.0 (6.3-8.2) g/dL Albumin 4.0 (3.5-5.1) g/dL Urine Color Yellow (Yellow) Urine Appearance Clear (Clear) Urine pH 5.0 (5.0-9.0) Ur Specific [place] 1.045 H (1.001-1.035) Urine Protein Trace (Negative) mg/dL Urine Glucose (UA) Negative (Negative) mg/dL Urine Ketones Trace H (Negative) mg/dL Ur Blood (Man) 2+ H (Negative) Urine Nitrate Negative (Negative) Urine Bilirubin Negative (Negative) Urine Urobilinogen 1.0 (<2.0) mg/dL Add Ur Microanalysis Reviewed Leukocyte Esterase Rfl Negative (Negative) KATH/UL Urine RBC 21-50 H (0-2) /hpf Urine WBC 0-5 (0-3) /hpf Ur Squamous Epith Cells None seen (Few) /hpf Urine Bacteria None seen /hpf Urine Casts 3-5 Influenza A (RT-PCR) Negative (Negative) Influenza B (RT-PCR) Negative (Negative) RSV (RT-PCR) Negative (Negative) SARS-CoV-2 RNA (RT-PCR) Negative (Negative) Imaging Data Radiologist's impression: Impressions Ankle X-Ray 03/24/24 11:37 IMPRESSION: 1: NO ACUTE BONE OR JOINT ABNORMALITY IDENTIFIED. Head CT 03/24/24 12:10 IMPRESSION: No acute intracranial findings. Chest/Abdomen/Pelvis CT 03/24/24 12:14 Impression: 5.1 cm ascending aortic aneurysm. Small pericardial effusion. Nonspecific mildly enlarged mediastinal lymph nodes. Fecal impaction/constipation. Discharge Plan Discharge Clinical Impression: Syncope and collapse Patient Disposition: Still a Patient Condition: Serious
[2024-03-24 11:15] LABS: Basophils Percent Auto 0.4 % (0.2-1.2); Eosinophils Percent Auto 0.3 % (0-4.4); Hematocrit 37.6 % (42.0-52.0); Hemoglobin 12.7 g/dL (14.0-18.0); Immature Granulocyte Absolute 0.03 K/mm3 (0.00-0.031); Immature Granulocyte Percent A 0.3 % (0-0.5); Lymphocytes Absolute Auto 1.22 K/mm3 (0.9-3.2); Lymphocytes Percent Auto 12.6 % (18.3-44.2); Mean Corpuscular HGB Conc 33.8 g/dl (32-36); Mean Corpuscular Volume 94.7 fl (80-100); Monocytes Absolute Auto 0.8 K/mm3 (0.1-0.6); Monocytes Percent Auto 7.7 % (2.6-8.5); Neutrophils Absolute Auto 7.6 K/mm3 (1.3-6.7); Neutrophils Percent Auto 78.7 % (45.5-73.1); Platelet Count Result 155 k/mm3 (150-375); Red Blood Count 3.97 M/mm3 (4.6-6.20); Red Cell Distribution Width 12.6 % (11.5-14.5); White Blood Count 9.7 K/mm3 (4.5-10.0)
[2024-03-24 11:25] LABS: Alanine Aminotransferase 12 U/L (6-50); Alkaline Phosphatase 75 U/L (38-126); Anion Gap 9 mmol/L (4-12); Aspartate Amino Transferase 15 U/L (17-59); Bilirubin,Total 0.6 mg/dL (0.2-1.3); Blood Urea Nitrogen 28 mg/dL (9-20); Calcium 9.1 mg/dL (8.4-10.2); Carbon Dioxide 28 mmol/L (22-30); Chloride 105 mmol/L (98-107); Estimated CRCL calculation 49 ml/min; Estimated Glomerular Filt Rate 46; Glucose 102 mg/dL (65-110); Potassium 3.4 mmol/L (3.4-5.0); Sodium 142 mmol/L (137-145)
[2024-03-24 11:26] LABS: INR 1.1; Partial Thromboplastin Time 33.5 Seconds (22.3-36.8); Prothrombin Time 14.1 Seconds (11.1-14.7)
[2024-03-24 11:51] LABS: Influenza A QL RT-PCR Negative (Negative); Influenza B QL RT-PCR Negative (Negative); RSV RNA, RT-PCR Negative (Negative); SARS-CoV-2 RNA PCR Negative (Negative)
[2024-03-24 13:36] LABS: Add Urine Microscopic? YES; Appearance Urine Clear (Clear); Bacteria Urine None Seen /hpf; Bilirubin Urine Negative (Negative); Blood Urine 2+ (Negative); Color Urine Yellow (Yellow); Glucose Urine UA Negative (Negative); Ketones Urine Trace mg/dL (Negative); Leukocyte Esterase Ur Negative LEU/UL (Negative); Need Manual Microscopic Reviewed; Nitrate Urine Negative (Negative); Protein Urine Trace mg/dL (Negative); RBC Urine 21-50 /hpf (0-2); Specific Grav Ur 1.045 (1.001-1.035); Squamous Epithelial Cell Urine None Seen /hpf (Few); WBC Urine 0-5 /hpf (0-3)
--- NOTE | 2024-03-24 14:50 | PM.IMHP ---
H&P: HPI History of Present Illness Date/Time: 03/24/24 14:50 Chief Complaint: Unresponsive episode. Narrative: This is a 68-year-old male with history of Parkinson's with dementia and obstructive sleep apnea presented to the emergency department via EMS from [facility] in [place] for evaluation of an unresponsive episode. The patient is not able to provide an accurate history and a majority the following is obtained via a review of his EMR as well as information provided by his , Janene. Janene sees the patient daily and reports he had a pretty good day yesterday. Some days he is more talkative than others. He can ambulate but typically with a one-to-one assist. He has been incontinent for sometime. Today he seemed lethargic at breakfast and staff had to feed him. He became less responsive at the breakfast table and they brought him to his room where he became unresponsive for brief period of time. It is my understanding that his blood pressure was low and in fact they were having difficulties even getting a reading and emergency services were contacted. At the time my evaluation he seems to be closer to baseline. Janene reports that the patient is currently finishing antibiotics for pneumonia and urinary tract infection. In the ED: He was afebrile on arrival with stable blood pressures. Labs were significant for a hemoglobin of 12.7, BUN 28, creatinine 1.50. Urine was concentrated with trace ketones, 2+ blood, and 21 to 50 RBC (catheterized specimen). He tested negative for influenza, RSV, and COVID. Head CT showed no acute intracranial findings. CT of the chest, abdomen, and pelvis showed a 5.1 cm ascending aortic aneurysm, small pericardial effusion, nonspecific mildly enlarged mediastinal lymph nodes, and fecal impaction/constipation. He is being admitted in this setting for closer monitoring and further workup. Review of Systems Review of Systems: Unable to obtain given clinical condition as above. [facility] Past Medical History Medical History (Updated 03/24/24 @ 22:52 by Leyla Carlton PA-C) Anxiety Dementia in Parkinson's disease Obstructive sleep apnea on CPAP Parkinsons disease Surgical History Surgical History (Updated 03/24/24 @ 22:49 by Leyla Carlton PA-C) History of open reduction and internal fixation (ORIF) procedure repair left wrist fracture Family History Family History Unknown No problems noted. Mother Lung cancer Sibling Breast cancer Social History Social History (Updated 03/24/24 @ 22:50 by Leyla Carlton PA-C) Social History: Healthcare power of assistant city attorney: Janene Shankar, spouse. Code status: Do not resuscitate. Smoking status: Former smoker Smoking end date: 03/24/74 Alcohol intake: never Drinks per week: 2 Substance use: never Additional living arrangements comments: Memory care at [facility] in [place]. 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 Spiritual care concerns: No Meds Home Medications and Allergies Home Medications Medication Instructions Recorded Confirmed Type carbidopa 25 mg-levodopa 100 mg 2.5 tablet PO TID 10/12/22 03/24/24 History tablet donepezil 10 mg tablet 10 mg PO DAILY 10/12/22 03/24/24 History Saccharomyces boulardii 250 mg 250 mg PO DAILY 03/24/24 03/24/24 History capsule (Probiotic (S.boulardii)) acetaminophen 325 mg tablet 650 mg PO TID 03/24/24 03/24/24 History (Tylenol) baclofen 5 mg tablet 5 mg PO TID PRN Cramps 03/24/24 03/24/24 History carbidopa 25 mg-levodopa 100 mg 3 tablet PO HS 03/24/24 03/24/24 History tablet ergocalciferol (vitamin D2) 1,250 50,000 unit PO WEEKLY 03/24/24 03/24/24 History mcg (50,000 unit) capsule (Vitamin D2) hydrocortisone 1 % topical cream 1 applic topical TID PRN 03/24/24 03/24/24 History (Preparation H Hydrocortisone) Hemorrhoids loperamide 2 mg capsule 2 mg PO PRN PRN Loose Stool 03/24/24 03/24/24 History melatonin 10 mg capsule 10 mg PO HS 03/24/24 03/24/24 History polyethylene glycol 3350 17 gram 17 g PO DAILY PRN Constipation 03/24/24 03/24/24 History oral powder packet (Miralax) tramadol 50 mg tablet 50 mg PO Q8H PRN Pain 03/24/24 03/24/24 History Allergies Allergy/AdvReac Type Severity Reaction Status Date / Time No Known Allergies Allergy Verified 03/24/24 15:48 Vital Signs Vital Signs - 24 hr 03/24/24 10:43 03/24/24 14:25 03/24/24 10:47 Temperature 97.8 F 97.8 F Pulse Rate 95 78 93 Respiratory Rate 16 17 Blood Pressure 118/67 128/68 126/57 L Pulse Oximetry 98 98 98 Oxygen Delivery Room Air 03/24/24 11:26 03/24/24 12:35 03/24/24 13:30 Temperature 97.6 F 97.3 F L 97.9 F Pulse Rate 92 76 83 Respiratory Rate 18 12 15 Blood Pressure 112/66 112/68 106/70 Pulse Oximetry 98 98 98 Oxygen Delivery Exam Narrative: General: Chronically ill, nontoxic-appearing gentleman sitting up in bed. Weight: 91.5 kg. BMI: 25.9. HEENT: PERRL, EOMI. Sclera anicteric. Tacky mucous membranes. Neck: Supple. No obvious bruits. Respiratory: Respirations are nonlabored and lungs sound clear to auscultation. Cardiovascular: Regular rate and rhythm with S1-S2. Gastrointestinal: Abdomen is soft, nontender, and nondistended with positive bowel sounds. Skin: Warm and dry. Extremities: No cyanosis, clubbing, or edema. Radial and pedal pulses intact. Neurological: Alert. Cranial nerves 2-12 are grossly intact. Masked facies. Upper extremity tremors. Slow to answer questions, typically in 2 to 3 words. Noted to move upper and lower extremities. Psychiatric: Pleasant and cooperative. H&P: Results Labs Labs: Short CBC 03/24/24 Range/Units 11:10 WBC 9.7 (4.5-10.0) K/mm3 Hgb 12.7 L (14.0-18.0) g/dL Hct 37.6 L (42.0-52.0) % Plt Count 155 (150-375) k/mm3 BMP 03/24/24 11:10 Sodium 142 Potassium 3.4 Chloride 105 Carbon Dioxide 28 BUN 28 H D Creatinine 1.50 H Glucose 102 Calcium 9.1 Liver Function 03/24/24 Range/Units 11:10 Total Bilirubin 0.6 (0.2-1.3) mg/dL AST 15 L (17-59) U/L ALT 12 (6-50) U/L Alkaline Phosphatase 75 (38-126) U/L Albumin 4.0 (3.5-5.1) g/dL Urine 03/24/24 Range/Units 13:14 Urine Color Yellow (Yellow) Urine Appearance Clear (Clear) Urine pH 5.0 (5.0-9.0) Ur Specific [place] 1.045 H (1.001-1.035) Urine Protein Trace (Negative) mg/dL Urine Glucose (UA) Negative (Negative) mg/dL Impressions Ankle X-Ray 03/24/24 11:37 IMPRESSION: 1: NO ACUTE BONE OR JOINT ABNORMALITY IDENTIFIED. Head CT 03/24/24 12:10 IMPRESSION: No acute intracranial findings. Chest/Abdomen/Pelvis CT 03/24/24 12:14 Impression: 5.1 cm ascending aortic aneurysm. Small pericardial effusion. Nonspecific mildly enlarged mediastinal lymph nodes. Fecal impaction/constipation. Assessment and Plan Assessment and plan (1) Unresponsive episode: Code(s): R40.4 - Transient alteration of awareness Status: Acute (2) Renal insufficiency: Code(s): N28.9 - Disorder of kidney and ureter, unspecified Status: Acute (3) Parkinsons disease: Code(s): G20.A1 - Parkinson's disease without dyskinesia, without mention of fluctuations Status: Acute (4) Dementia in Parkinson's disease: Code(s): G20.A1 - Parkinson's disease without dyskinesia, without mention of fluctuations; F02.80 - Dementia in other diseases classified elsewhere, unspecified severity, without behavioral disturbance, psychotic disturbance, mood disturbance, and anxiety Status: Acute (5) Obstructive sleep apnea on CPAP: Code(s): G47.33 - Obstructive sleep apnea (adult) (pediatric) Status: Acute Plan The patient presented to the emergency department for evaluation of an unresponsive episode as detailed in HPI. Labs, imaging, EKG, and all reports were personally reviewed. He was apparently more lethargic at breath status today before becoming unresponsive. It is my understanding that staff had difficulties getting his blood pressure at his nursing facility. There were no reports of seizure activity. He may very well have issues with orthostatic hypotension given his Parkinson's thus will check orthostatic vital signs. He will be monitored on telemetry overnight. Echocardiogram and carotid Doppler ultrasounds have been ordered for further evaluation. He does look a bit dry on exam and by labs and will be hydrated overnight. BUN and creatinine are elevated and is baseline renal function is not entirely clear. Records requested for review. His home medications will be reviewed and resumed as appropriate. Findings and treatment plan were discussed with the patient. Questions were solicited and answered to satisfaction. The patient's medical management will be taken over by the hospitalist team in a.m. Quality VTE Prophylaxis VTE prophylaxis: pharmacologic ordered The patient has been admitted under observation status. Hospitalist [facility] Advance Care Plan I have confirmed that the patient's Advanced Care Plan is present, code status is documented, or surrogate decision maker is listed in patient medical record.: Yes Medication Reconciliation I have utilized all available resources to obtain, update and review the patients current medications (includes all prescriptions, OTC, herbals, cannabis, and nutritional supplements).: Yes
--- NOTE | 2024-03-24 15:56 | ADMGEN ---
This patient, Sean Shankar, was admitted to [facility] Room 333-01. Patient/family oriented to hospital policies and general routines including ID bracelet, bed and alarms, visiting hours, pain management, procedures, bathroom and other care routines, personal items, smoking policy, room service/diet, and visiting hours. Information on how to activate the Rapid Response Team has been discussed. Patient/Family are encouraged to report perceived risks to care and to ask questions if they do not understand what they are told or what they should do. Report from Janet.
[2024-03-24] MEDS: CARBIDOPA/LEVODOPA 25/100 MG TABLET 3 TABLET PO (23:30)
[2024-03-24] MEDS: LACTATED RINGERS 1,000 ML 100 ML IV CONT (23:31)
[2024-03-24] MEDS: MELATONIN 5 MG TABLET 10 MG PO (23:31)
[2024-03-25] VITALS (10 sets, daily range): BP systolic 93–155; BP diastolic 64–101; PULSE 55–78; RESP 12–20; TEMP 36.6–37.1; O2SAT 95–98
[2024-03-25 06:01] LABS: Hematocrit 33.2 % (42.0-52.0); Hemoglobin 11.4 g/dL (14.0-18.0); Mean Corpuscular HGB Conc 34.3 g/dl (32-36); Mean Corpuscular Hemoglobin 32.3 pg (26-34); Mean Corpuscular Volume 94.1 fl (80-100); Mean Platelet Volume 10.6 fl (7.4-10.4); Platelet Count Result 148 k/mm3 (150-375); Red Blood Count 3.53 M/mm3 (4.6-6.20); Red Cell Distribution Width 13.1 % (11.5-14.5)
[2024-03-25 06:13] LABS: Anion Gap 7 mmol/L (4-12); Blood Urea Nitrogen 24 mg/dL (9-20); Calcium 8.9 mg/dL (8.4-10.2); Carbon Dioxide 25 mmol/L (22-30); Chloride 107 mmol/L (98-107); Estimated CRCL calculation 60 ml/min; Estimated Glomerular Filt Rate 60; Glucose 101 mg/dL (65-110); Magnesium 1.8 mg/dL (1.6-2.3); Potassium 3.7 mmol/L (3.4-5.0); Sodium 139 mmol/L (137-145)
[2024-03-25] MEDS: SACCHAROMYCES BOULARDII 250 MG CAPSULE PO (08:56)
[2024-03-25] MEDS: CARBIDOPA/LEVODOPA 12.5/50 MG TABLET 1 TABLET PO ×3 (08:56→17:07)
[2024-03-25] MEDS: CARBIDOPA/LEVODOPA 25/100 MG TABLET 2 TABLET PO ×3 (08:56→17:07)
[2024-03-25] MEDS: DONEPEZIL HCL 10 MG TABLET PO (08:56)
[2024-03-25] MEDS: ENOXAPARIN 40 MG/0.4 ML SYRINGE SUB-Q (08:57)
--- NOTE | 2024-03-25 09:37 | P.PNIM_ITS ---
Progress Note: A&P Assessment and Plan (1) Unresponsive episode: Code(s): R40.4 - Transient alteration of awareness Status: Acute Assessment and Plan: History of dementia No report of seizure Echo pending Carotid Doppler pending Head CT no acute findings CT chest abdomen pelvis shows The large stool and fecal impaction, Nonspecific mildly enlarged mediastinal lymph nodes Possibly due to dehydration and low blood pressure Baclofen on hold (2) Fecal impaction: Code(s): K56.41 - Fecal impaction Status: Acute Assessment and Plan: Fecal impaction severe constipation seen on CT Aggressive bowel protocol Lactulose enema x1 Oral lactulose x1 (3) Renal insufficiency: Code(s): N28.9 - Disorder of kidney and ureter, unspecified Status: Acute Assessment and Plan: Creatinine on admission 1.5-improved Daily BMP UA negative for infection (4) Parkinsons disease: Code(s): G20.A1 - Parkinson's disease without dyskinesia, without mention of fluctuations Status: Acute Assessment and Plan: Continue home medication (5) Obstructive sleep apnea on CPAP: Code(s): G47.33 - Obstructive sleep apnea (adult) (pediatric) Status: Acute Assessment and Plan: Okay for home BiPAP Plan The patient presented to the emergency department for evaluation of an unresponsive episode as detailed in HPI. Labs, imaging, EKG, and all reports were personally reviewed. He was apparently more lethargic at breath status today before becoming unresponsive. It is my understanding that staff had difficulties getting his blood pressure at his nursing facility. There were no reports of seizure activity. He may very well have issues with orthostatic hypotension given his Parkinson's thus will check orthostatic vital signs. He will be monitored on telemetry overnight. Echocardiogram and carotid Doppler ultrasounds have been ordered for further evaluation. He does look a bit dry on exam and by labs and will be hydrated overnight. BUN and creatinine are elevated and is baseline renal function is not entirely clear. Records requested for review. Time Spent With Patient Time with patient: Greater than 35 minutes Subjective Date/time seen: 03/25/24 09:37 Interval history: 68-year-old male with history of Parkinson's with dementia and obstructive sleep apnea presented to the emergency department via EMS from [facility] for evaluation of an unresponsive episode. Patient alert to self, oriented place and year, poor historian Review of Systems Review of Systems: Unable to obtain given clinical condition as above. Exam Narrative: General: Chronically ill, nontoxic-appearing gentleman sitting up in bed. Weight: 91.5 kg. BMI: 25.9. HEENT: PERRL, EOMI. Sclera anicteric. Tacky mucous membranes. Neck: Supple. No obvious bruits. Respiratory: Respirations are nonlabored and lungs sound clear to auscultation. Cardiovascular: Regular rate and rhythm with S1-S2. Gastrointestinal: Abdomen is soft, nontender, and nondistended with positive bowel sounds. Skin: Warm and dry. Extremities: No cyanosis, clubbing, or edema. Radial and pedal pulses intact. Neurological: Alert. Cranial nerves 2-12 are grossly intact. Masked facies. Upper extremity tremors. Slow to answer questions, typically in 2 to 3 words. Noted to move upper and lower extremities. Psychiatric: Pleasant and cooperative. Objective Data Vital Signs Vital Signs: Vital Signs - 24 hr 03/24/24 10:43 03/24/24 14:25 03/24/24 10:47 Temperature 97.8 F 97.8 F Pulse Rate 95 78 93 Respiratory Rate 16 17 Blood Pressure 118/67 128/68 126/57 L Pulse Oximetry 98 98 98 Oxygen Delivery Room Air 03/24/24 11:26 03/24/24 12:35 03/24/24 13:30 Temperature 97.6 F 97.3 F L 97.9 F Pulse Rate 92 76 83 Respiratory Rate 18 12 15 Blood Pressure 112/66 112/68 106/70 Pulse Oximetry 98 98 98 Oxygen Delivery 03/24/24 16:00 03/24/24 20:34 03/24/24 23:58 Temperature 97.8 F 98.6 F Pulse Rate 76 72 69 Respiratory Rate 14 14 Blood Pressure 160/81 H 156/86 H Pulse Oximetry 99 96 Oxygen Delivery 03/24/24 20:00 03/25/24 00:00 03/25/24 04:00 Temperature 97.8 F Pulse Rate 69 78 66 Respiratory Rate 12 Blood Pressure 155/86 H Pulse Oximetry 97 Oxygen Delivery 03/25/24 04:00 03/25/24 08:45 03/25/24 08:00 Temperature Pulse Rate 64 Respiratory Rate Blood Pressure Pulse Oximetry 96 Oxygen Delivery Room Air Room Air Intake/Output Intake/Output: Intake & Output 03/22/24 03/23/24 03/24/24 03/25/24 23:59 23:59 23:59 23:59 Intake Total 222 0 Output Total 25 Balance 197 0 Meds/Results Medications: Active Medications Generic Name Dose Route Start Last Admin Trade Name Freq PRN Reason Stop Dose Admin Acetaminophen 650 mg 03/24/24 22:54 Acetaminophen 325 Mg Tablet PO Q6H PRN Mild Pain (1-3) or Fever Baclofen 5 mg 03/24/24 22:55 Baclofen 5 Mg Tablet PO TID PRN Cramps Carbidopa/Levodopa 2 tablet 03/25/24 09:00 03/25/24 08:56 Carbidopa/Levodopa 25/100 Mg Tablet PO 2 tablet TID GEORGE Administration Carbidopa/Levodopa 3 tablet 03/24/24 23:05 03/24/24 23:30 Carbidopa/Levodopa 25/100 Mg Tablet PO 3 tablet HS GEORGE Administration Carbidopa/Levodopa 1 tablet 03/25/24 09:00 03/25/24 08:56 Carbidopa/Levodopa 12.5/50 Mg Tablet PO 1 tablet TID GEORGE Administration Donepezil HCl 10 mg 03/25/24 09:00 03/25/24 08:56 Donepezil Hcl 10 Mg Tablet PO 10 mg DAILY GEORGE Administration Enoxaparin Sodium 40 mg 03/25/24 09:00 03/25/24 08:57 Enoxaparin 40 Mg/0.4 Ml Syringe SUB-Q 40 mg DAILY GEORGE Administration Hydrocortisone 1 applic 03/24/24 22:55 Hydrocortisone 1% 30 Gm Cream TOPICAL TID PRN Hemorrhoids Loperamide HCl 2 mg 03/24/24 22:55 Loperamide Hcl 2 Mg Capsule PO PRN PRN Loose Stool Melatonin 10 mg 03/24/24 23:05 03/24/24 23:31 Melatonin 5 Mg Tablet PO 10 mg HS GEORGE Administration Ondansetron HCl 4 mg 03/24/24 13:46 Ondansetron Inj 4 Mg/2 Ml Vial IV PUSH Q4H PRN Nausea Perflutren Lipid Microsphere 0 ml 03/24/24 22:54 Perflutren Lipid Microspheres 1.5 Ml Vial Diluted To 10 Ml Total Volume IV PUSH 03/27/24 22:54 ONCE PRN adequate visualization Protocol Polyethylene Glycol 17 gm 03/24/24 22:55 Polyethylene Glycol 3350 17 Gm Powd.Pack PO DAILY PRN Constipation Saccharomyces Boulardii 250 mg 03/25/24 09:00 03/25/24 08:56 Saccharomyces Boulardii 250 Mg Capsule PO 250 mg DAILY GEORGE Administration Tramadol HCl 50 mg 03/24/24 22:55 Tramadol Hcl (*Crx) 50 Mg Tablet PO Q8H PRN PAIN RATED 4-6 Radiology Results: ITS Impressions Ankle X-Ray 03/24/24 11:37 IMPRESSION: 1: NO ACUTE BONE OR JOINT ABNORMALITY IDENTIFIED. Head CT 03/24/24 12:10 IMPRESSION: No acute intracranial findings. Chest/Abdomen/Pelvis CT 03/24/24 12:14 Impression: 5.1 cm ascending aortic aneurysm. Small pericardial effusion. Nonspecific mildly enlarged mediastinal lymph nodes. Fecal impaction/constipation. Labs Labs: Laboratory Results - last 24 hr 03/24/24 03/24/24 03/25/24 11:10 13:14 05:30 WBC 9.7 5.0 RBC 3.97 L 3.53 L Hgb 12.7 L 11.4 L Hct 37.6 L 33.2 L MCV 94.7 94.1 MCH 32.0 32.3 MCHC 33.8 34.3 RDW 12.6 13.1 Plt Count 155 148 L MPV 10.0 10.6 H Immature Gran % (Auto) 0.3 Neut % (Auto) 78.7 H Lymph % (Auto) 12.6 L [place] % (Auto) 7.7 Eos % (Auto) 0.3 Baso % (Auto) 0.4 Lymph # (Auto) 1.22 [place] # (Auto) 0.8 H Eos # (Auto) 0.0 Baso # (Auto) 0.0 Abs Immat Gran (auto) 0.03 Absolute Neuts (auto) 7.6 H Absolute Nucleated RBC 0.000 Nucleated RBC % 0.0 PT 14.1 INR 1.1 APTT 33.5 Sodium 142 139 Potassium 3.4 3.7 Chloride 105 107 Carbon Dioxide 28 25 Anion Gap 9 7 BUN 28 H D 24 H Creatinine 1.50 H 1.20 Estim Creat Clear Calc 49 60 Estimated GFR 46 L 60 Glucose 102 101 Calcium 9.1 8.9 Magnesium 1.8 Total Bilirubin 0.6 AST 15 L ALT 12 Alkaline Phosphatase 75 Total Protein 7.0 Albumin 4.0 Urine Color Yellow Urine Appearance Clear Urine pH 5.0 Ur Specific [place] 1.045 H Urine Protein Trace Urine Glucose (UA) Negative Urine Ketones Trace H Ur Blood (Man) 2+ H Urine Nitrate Negative Urine Bilirubin Negative Urine Urobilinogen 1.0 Add Ur Microanalysis Reviewed Leukocyte Esterase Rfl Negative Urine RBC 21-50 H Urine WBC 0-5 Ur Squamous Epith Cells None seen Urine Bacteria None seen Urine Casts 3-5 Influenza A (RT-PCR) Negative Influenza B (RT-PCR) Negative RSV (RT-PCR) Negative SARS-CoV-2 RNA (RT-PCR) Negative Quality VTE Prophylaxis VTE prophylaxis: pharmacologic ordered Hospitalist [facility] Advance Care Plan I have confirmed that the patient's Advanced Care Plan is present, code status is documented, or surrogate decision maker is listed in patient medical record.: Yes Medication Reconciliation I have utilized all available resources to obtain, update and review the patients current medications (includes all prescriptions, OTC, herbals, cannabis, and nutritional supplements).: Yes
[2024-03-25] MEDS: SENNA/DOCUSATE SODIUM TABLET 1 TAB PO (17:07)
[2024-03-25] MEDS: polyethylene glycoL 3350 17 GM POWD.PACK PO (17:07)
[2024-03-25] MEDS: LACTULOSE ENEMA 200 GM/1,000 ML ENEMA RECTAL (17:08)
[2024-03-25] MEDS: CARBIDOPA/LEVODOPA 25/100 MG TABLET 3 TABLET PO (20:27)
[2024-03-25] MEDS: MELATONIN 5 MG TABLET 10 MG PO (20:28)
--- NOTE | 2024-03-25 22:54 | ECHO_ITS ---
Patient Info Name: Sean Shankar Age: 68 years : 1955 Gender: Male Ht: 74 in Wt: 201 lbs BSA: 2.19 m2 HR: 64 bpm BP: 155 / 86 mmHg Heart Rhythm: Sinus Rhythm Technical Quality: Fair Exam Date: 03/25/2024 1:36 PM Exam Location: Echo Lab Patient Status: Outpatient Admit Date: 03/24/2024 Staff Ordering Physician: Leyla Carlton PA-C Mosaic Tiler: Blade Rayo [facility] Attending Provider: Tommy Kuo MD Referring Physician: Brandt WOOD; Exam Type: CA echo doppler color flow Study Info Indications R55 - Syncope and collapse - unresponsive episode Complete two-dimensional, color flow and Doppler transthoracic echocardiogram is performed. Summary 1. Complete two-dimensional, color flow and Doppler transthoracic echocardiogram is performed. 2. Left ventricular chamber dimension is normal. 3. Left ventricular systolic function is normal, estimated at 65-70%. 4. There is mildly increased left ventricular wall thickness. 5. The left ventricular diastolic function is grade I diastolic dysfunction. 6. Left atrial chamber dimension is mildly enlarged. 7. There is mild to moderate aortic valve regurgitation. 8. There is mild mitral valve regurgitation. 9. There is mild tricuspid valve regurgitation. 10. There is mild pulmonic regurgitation. 11. The aortic root size at the sinus of Valsalva is moderately dilated. 12. The prox ascending aorta size is moderately dilated. Left Ventricle Left ventricular chamber dimension is normal. Left ventricular systolic function is normal, estimated at 65-70%. There is mildly increased left ventricular wall thickness. The left ventricular diastolic function is grade I diastolic dysfunction. Right Ventricle Right ventricular chamber dimension is normal. Right ventricular systolic function is normal. Left Atria Left atrial chamber dimension is mildly enlarged. Right Atria Right atrial chamber dimension is normal. Atrial Septum Intact interatrial septum visualized by color flow imaging. Aortic Valve The aortic valve is trileaflet. There is mild aortic valve sclerosis. There is no aortic valve stenosis. There is mild to moderate aortic valve regurgitation. Pulmonic Valve The pulmonic valve is normal. There is no pulmonic valve stenosis. There is mild pulmonic regurgitation. Mitral Valve The mitral valve has normal leaflets. There is no mitral valve stenosis. There is mild mitral valve regurgitation. Tricuspid Valve The tricuspid valve leaflets are normal. There is no significant tricuspid valve stenosis. There is mild tricuspid valve regurgitation. No pulmonary hypertension, estimated pulmonary arterial systolic pressure is 24 mmHg. Pericardium/Pleural The pericardium appears normal. There is no pericardial effusion. Inferior Vena Cava Normal inferior vena cava with >50% collapse upon inspiration consistent with normal right atrial pressure, 8 mmHg. Aorta The aortic root size at the sinus of Valsalva is moderately dilated. The prox ascending aorta size is moderately dilated. Left Ventricular Outflow Tract Name Value Normal LVOT 2D LVOT Diameter 2.3 cm LVOT Doppler LVOT Peak Gradient 5 mmHg LVOT Mean Gradient 3 mmHg LVOT VTI 24 cm LVOT VTI/AV VTI Ratio 0.7 LVOT Stroke Volume 100 ml LVOT CO 5.8 l/min LVOT CI 2.6 l/min/m2 Pulmonic Valve Name Value Normal PV Doppler PV Peak Gradient 3 mmHg PV Regurgitation Doppler MD Peak End Diastolic Velocity 111 cm/s Mitral Valve Name Value Normal MV Doppler MV Decel [place] 193 cm/s2 MV PHT 89 ms MV Area (PHT) 2.5 cm2 4.0-5.0 MV Diastolic Function MV E Peak Velocity 59 cm/s MV A Peak Velocity 71 cm/s MV E/A 0.8 MV Decel Time 306 ms Tricuspid Valve Name Value Normal TV Regurgitation Doppler TR Peak Velocity 201 cm/s TR Peak Gradient 16 mmHg Estimated PAP/RSVP RA Pressure 8 mmHg <=5 PA Systolic Pressure 24 mmHg <36 RV Systolic Pressure 24 mmHg <36 Aorta Name Value Normal Ascending Aorta Ao Root Diameter (MM) 2.9 cm Ao Root Diam Index (MM) 1.3 cm/m2 Aortic Valve Name Value Normal AV Doppler AV Peak Velocity 151 cm/s AV Peak Gradient 9 mmHg AV Mean Gradient 4 mmHg AV VTI 32 cm AV Area (Cont Eq VTI) 3.1 cm2 >=3.0 AV Area (Cont Eq Cesar) 3.0 cm2 AV Regurgitation 2D LVOT Area 4.2 cm2 AV Regurgitation Doppler AR Decel Time 3,392 ms AR Decel [place] 62 cm/s2 AR PHT 984 ms Ventricles Name Value Normal LV Dimensions 2D/MM IVS Diastolic Thickness (2D) 1.1 cm 0.6-1.0 IVS Diastole Thickness (MM) 1.0 cm 0.6-1.0 LVID Diastole (2D) 4.9 cm 4.2-5.8 LVID Diastole (MM) 5.4 cm 4.2-5.8 LVIW Diastolic Thickness (2D) 1.1 cm 0.6-1.0 LVIW Diastolic Thickness (MM) 1.1 cm 0.6-1.0 LVID Systole (2D) 3.1 cm 2.5-4.0 LVID Systole (MM) 3.2 cm 2.5-4.0 LVOT Diameter 2.3 cm LV Mass (2D Cubed) 197.38 g 88.00-224.00 LV Mass Index (2D Cubed) 90 g/m2 49-115 Relative Wall Thickness (2D) 0.43 LV Mass (MM Cubed) 218.67 g 88.00-224.00 LV Mass Index (MM Cubed) 100 g/m2 49-115 Relative Wall Thickness (MM) 0.40 LV Fractional Shortening/Ejection Fraction 2D/MM LV Fractional Shortening (2D) 36 % 25-43 LV Fractional Shortening (MM) 40 % 25-43 LV EF (MM Teicholz) 70 % 52-72 LV EF (2D Teicholz) 65 % 52-72 LV Diastolic Volume (4C MOD) 134 ml LV EF (4C MOD) 67 % LV Diastolic Volume (2C MOD) 94 ml LV EF (2C MOD) 63 % LV Diastolic Volume (BP MOD) 113 ml 62-150 LV Diastolic Volume Index (BP MOD) 51 ml/m2 34-74 LV Systolic Volume (BP MOD) 41 ml 21-61 LV Systolic Volume Index (BP MOD) 19 ml/m2 11-31 LV EF (BP MOD) 63 % 52-72 LV Diastolic Length (4C) 9.3 cm LV Systolic Length (4C) 8.0 cm LV Stroke Volume (4C MOD) 89 ml Atria Name Value Normal LA Dimensions LA Dimension (MM) 4.5 cm 3.0-4.1 LA Volume (4C A-L) 44 ml LA Volume (BP A-L) 57 ml RA Dimensions RA Area (4C) 17.0 cm2 <=18.0 Report Signatures
[2024-03-26] VITALS (12 sets, daily range): BP systolic 108–180; BP diastolic 60–133; PULSE 61–84; RESP 18–20; TEMP 36.1–37.1; O2SAT 95–100
[2024-03-26] MEDS: CARBIDOPA/LEVODOPA 25/100 MG TABLET 2 TABLET PO ×3 (08:22→17:25)
[2024-03-26] MEDS: polyethylene glycoL 3350 17 GM POWD.PACK PO ×2 (08:22→17:26)
[2024-03-26] MEDS: LACTULOSE 20 GM/30 ML UDC 45 GM PO (08:22)
[2024-03-26] MEDS: SACCHAROMYCES BOULARDII 250 MG CAPSULE PO (08:22)
[2024-03-26] MEDS: SENNA/DOCUSATE SODIUM TABLET 1 TAB PO ×2 (08:23→17:25)
[2024-03-26] MEDS: ENOXAPARIN 40 MG/0.4 ML SYRINGE SUB-Q (08:23)
[2024-03-26] MEDS: DONEPEZIL HCL 10 MG TABLET PO (08:23)
[2024-03-26] MEDS: CARBIDOPA/LEVODOPA 12.5/50 MG TABLET 1 TABLET PO ×3 (08:23→17:25)
--- NOTE | 2024-03-26 09:25 | PCSTNOTE ---
Please refer to the Bedside Swallow Evaluation in the EMR. Please note, silent aspiration cannot be ruled out at bedside.
--- NOTE | 2024-03-26 11:20 | P.PNIM_ITS ---
Progress Note: A&P Assessment and Plan (1) Unresponsive episode: Code(s): R40.4 - Transient alteration of awareness Status: Acute Assessment and Plan: * Questionable syncope verses orthostatic hypotension due to dehydration secondary to his dementia * Head CT was negative * Carotid Doppler study showed 50-69% stenosis in the right ICA, less than 50% stenosis in the left ICA * Continue orthostatic blood pressures Q shift. Patient has had a consistent 20 point drop in systolic blood pressure with every position change. * Bhargav hose ordered, consider abdominal binder * Encourage oral intake * Will check cortisol to rule out adrenal insufficiency * Last TSH on 10/12/2022 was 1.250, will obtain another TSH today * Echocardiogram showed a normal LV systolic function with an estimated EF of 65-70%, grade 1 diastolic dysfunction, moderate aortic valve regurgitation * PT and OT ordered (2) Fecal impaction: Code(s): K56.41 - Fecal impaction Status: Acute Assessment and Plan: * Chest abdomen pelvis CT showed fecal impaction/constipation * Patient was given a lactulose enema and oral lactulose x1 yesterday and had 1 bowel movement * We will order a Fleet's enema today and continue lactulose * Continue polyethylene glycol b.i.d. * Will get a KUB in the morning * Imodium held (3) Renal insufficiency: Code(s): N28.9 - Disorder of kidney and ureter, unspecified Status: Acute Assessment and Plan: * Initial creatinine 1.50, E GFR was 46 * Creatinine now down to 1.20, EGFR 60 and appears to be at baseline * Continue to trend (4) Parkinsons disease: Code(s): G20.A1 - Parkinson's disease without dyskinesia, without mention of fluctuations Status: Acute Assessment and Plan: * Continue carbidopa/levodopa Time Spent With Patient Time with patient: 25 - 35 minutes Subjective Date/time seen: 03/26/24 11:20 Interval history: Interval history: This is a 68-year-old male with significant history of dementia and Parkinson's who presented to the emergency room on 03/24/2024 via EMS from [facility] in [place] for evaluation of unresponsive episode. He has been worked up for a syncopal episode. Workup in the hospital included an ankle x-ray which did not show any joint abnormality. Head CT was negative. Chest/abdomen/pelvis CT showed a 5.1 cm ascending aortic aneurysm, small pericardial effusion, nonspecific mildly enlarged mediastinal lymph nodes, fecal impaction/constipation. Carotid Doppler study showed 50-69% stenosis in the right internal carotid artery, less than 50% stenosis in the left internal carotid artery. Initial labs showed a normal white blood cell count of 9.7, hemoglobin 12.7, creatinine 1.50, EGFR 46. A UA was obtained which showed a urine specific gravity of 1.045, trace urine ketone, 2+ urine blood, 21-50 urine RBC, 3-5 urine casts otherwise negative. Respiratory panel was negative for influenza a and B, RSV, COVID. Echocardiogram was performed and showed normal LV systolic function with an estimated EF of 65-70%, grade 1 diastolic dysfunction, mild to moderate aortic valve regurgitation. EKG showed sinus bradycardia, with a rate of 57, QTC 408. Subjective: is at the bedside and states that he has not been eating and drinking like he should at his care facility and likely has some component of dehydration that may be causing orthostatic hypotension. I did repeat his orthostatic blood pressures today and it showed a consistent drop of his systolic blood pressure of 20 points with each position change. Patient noncontributory toward symptoms. Labs and imaging reviewed. Review of Systems Review of Systems: Unable to obtain given clinical condition as above. Exam Narrative: General: In no acute distress Head: atraumatic, no encephalopathy Eyes: PERRLA, sclera clear ENT: moist mucous membranes, nasal passages clear Neck: supple, no JVD, no adenopathy, trachea midline Cardiac: Normal S1 and S2. Murmur noted. No Gallops or friction rubs, peripheral pulses intact. Respiratory: Lungs clear to auscultation, no adventitious lung sounds, currently on room air Gastrointestinal: soft, non-distended, non-tender, hypoactive bowel sounds. : Incontinent currently wearing a depends. Extremities: moves all extremities well, no edema, good ROM, strength 5/5 Skin: clean, dry, intact. No wounds or lesions. Neuro: Alert and oriented x1, cranial nerves intact, no neuro deficits. Psych: minimally interactive, does not regard, yells out at times Objective Data Vital Signs Vital Signs: Vital Signs - 24 hr 03/25/24 12:00 03/25/24 12:00 03/25/24 12:00 Temperature 98.1 F Pulse Rate 69 65 Respiratory Rate 16 Blood Pressure 107/67 107/67 Pulse Oximetry 96 03/25/24 12:05 03/25/24 12:10 03/25/24 16:00 Temperature Pulse Rate 59 L Respiratory Rate Blood Pressure 93/64 L 112/101 H Pulse Oximetry 03/25/24 16:00 03/25/24 21:15 03/26/24 00:45 Temperature 98.8 F 98.8 F 98.7 F Pulse Rate 55 L 64 75 Respiratory Rate 16 20 20 Blood Pressure 124/74 129/77 145/81 H Pulse Oximetry 97 95 95 03/25/24 20:00 03/26/24 00:00 03/26/24 04:00 Temperature Pulse Rate 66 72 63 Respiratory Rate Blood Pressure Pulse Oximetry 03/26/24 05:20 03/26/24 08:00 03/26/24 08:00 Temperature 98 F 97 F L 97 F L Pulse Rate 64 82 82 Respiratory Rate 20 20 20 Blood Pressure 166/89 H 180/133 H 180/100 H Pulse Oximetry 100 99 99 03/26/24 09:00 03/26/24 08:00 Temperature Pulse Rate 81 Respiratory Rate Blood Pressure 134/60 Pulse Oximetry Intake/Output Intake/Output: Intake & Output 03/23/24 03/24/24 03/25/24 03/26/24 23:59 23:59 23:59 23:59 Intake Total 222 476 370 Output Total 25 Balance 197 476 370 Meds/Results Medications: Active Medications Generic Name Dose Route Start Last Admin Trade Name Freq PRN Reason Stop Dose Admin Acetaminophen 650 mg 03/24/24 22:54 Acetaminophen 325 Mg Tablet PO Q6H PRN Mild Pain (1-3) or Fever Baclofen 5 mg 03/24/24 22:55 Baclofen 5 Mg Tablet PO TID PRN Cramps Carbidopa/Levodopa 2 tablet 03/25/24 09:00 03/26/24 08:22 Carbidopa/Levodopa 25/100 Mg Tablet PO 2 tablet TID GEORGE Administration Carbidopa/Levodopa 3 tablet 03/24/24 23:05 03/25/24 20:27 Carbidopa/Levodopa 25/100 Mg Tablet PO 3 tablet HS GEORGE Administration Carbidopa/Levodopa 1 tablet 03/25/24 09:00 03/26/24 08:23 Carbidopa/Levodopa 12.5/50 Mg Tablet PO 1 tablet TID GEORGE Administration Donepezil HCl 10 mg 03/25/24 09:00 03/26/24 08:23 Donepezil Hcl 10 Mg Tablet PO 10 mg DAILY GEORGE Administration Enoxaparin Sodium 40 mg 03/25/24 09:00 03/26/24 08:23 Enoxaparin 40 Mg/0.4 Ml Syringe SUB-Q 40 mg DAILY GEORGE Administration Hydrocortisone 1 applic 03/24/24 22:55 Hydrocortisone 1% 30 Gm Cream TOPICAL TID PRN Hemorrhoids Lactulose 45 gm 03/26/24 09:00 03/26/24 08:22 Lactulose 20 Gm/30 Ml Udc PO 45 gm QAM GEORGE Administration Loperamide HCl 2 mg 03/24/24 22:55 Loperamide Hcl 2 Mg Capsule PO PRN PRN Loose Stool Melatonin 10 mg 03/24/24 23:05 03/25/24 20:28 Melatonin 5 Mg Tablet PO 10 mg HS GEORGE Administration Ondansetron HCl 4 mg 03/24/24 13:46 Ondansetron Inj 4 Mg/2 Ml Vial IV PUSH Q4H PRN Nausea Perflutren Lipid Microsphere 0 ml 03/24/24 22:54 Perflutren Lipid Microspheres 1.5 Ml Vial Diluted To 10 Ml Total Volume IV PUSH 03/27/24 22:54 ONCE PRN adequate visualization Protocol Polyethylene Glycol 17 gm 03/24/24 22:55 Polyethylene Glycol 3350 17 Gm Powd.Pack PO DAILY PRN Constipation Polyethylene Glycol 17 gm 03/25/24 17:00 03/26/24 08:22 Polyethylene Glycol 3350 17 Gm Powd.Pack PO 17 gm BID GEORGE Administration Saccharomyces Boulardii 250 mg 03/25/24 09:00 03/26/24 08:22 Saccharomyces Boulardii 250 Mg Capsule PO 250 mg DAILY GEORGE Administration Senna/Docusate Sodium 1 tab 03/25/24 17:00 03/26/24 08:23 Senna/Docusate Sodium Tablet PO 1 tab BID GEORGE Administration Tramadol HCl 50 mg 03/24/24 22:55 Tramadol Hcl (*Crx) 50 Mg Tablet PO Q8H PRN PAIN RATED 4-6 Radiology Results: ITS Impressions Ankle X-Ray 03/24/24 11:37 IMPRESSION: 1: NO ACUTE BONE OR JOINT ABNORMALITY IDENTIFIED. Head CT 03/24/24 12:10 IMPRESSION: No acute intracranial findings. Chest/Abdomen/Pelvis CT 03/24/24 12:14 Impression: 5.1 cm ascending aortic aneurysm. Small pericardial effusion. Nonspecific mildly enlarged mediastinal lymph nodes. Fecal impaction/constipation. Carotid Doppler Study 03/25/24 14:54 IMPRESSION: 1. 50-69% stenosis in the right internal carotid artery. 2. <50% stenosis in the left internal carotid artery. Quality VTE Prophylaxis VTE prophylaxis: pharmacologic ordered
[2024-03-26] MEDS: ACETAMINOPHEN 325 MG TABLET 650 MG PO (12:07)
[2024-03-26 19:56] LABS: Thyroid Stimulating Hormone 0.941 uIU/mL (0.465-4.680)
[2024-03-26 20:08] LABS: Cortisol Random 6.32 ug/dL
[2024-03-26] MEDS: CARBIDOPA/LEVODOPA 25/100 MG TABLET 3 TABLET PO (21:07)
[2024-03-26] MEDS: MELATONIN 5 MG TABLET 10 MG PO (21:08)
[2024-03-27] VITALS (10 sets, daily range): BP systolic 91–145; BP diastolic 65–95; PULSE 56–84; RESP 16–18; TEMP 36.1–37; O2SAT 94–99
[2024-03-27 06:42] LABS: Basophils Percent Auto 0.7 % (0.2-1.2); Eosinophils Absolute Auto 0.1 K/mm3 (0-0.3); Eosinophils Percent Auto 2.2 % (0-4.4); Hematocrit 37.9 % (42.0-52.0); Hemoglobin 12.7 g/dL (14.0-18.0); Immature Granulocyte Absolute 0.02 K/mm3 (0.00-0.031); Immature Granulocyte Percent A 0.4 % (0-0.5); Lymphocytes Absolute Auto 0.77 K/mm3 (0.9-3.2); Lymphocytes Percent Auto 16.8 % (18.3-44.2); Mean Corpuscular HGB Conc 33.5 g/dl (32-36); Mean Corpuscular Hemoglobin 31.7 pg (26-34); Mean Corpuscular Volume 94.5 fl (80-100); Mean Platelet Volume 10.4 fl (7.4-10.4); Monocytes Absolute Auto 0.5 K/mm3 (0.1-0.6); Monocytes Percent Auto 11.8 % (2.6-8.5); Neutrophils Absolute Auto 3.1 K/mm3 (1.3-6.7); Neutrophils Percent Auto 68.1 % (45.5-73.1); Platelet Count Result 159 k/mm3 (150-375); Red Blood Count 4.01 M/mm3 (4.6-6.20); Red Cell Distribution Width 12.6 % (11.5-14.5); White Blood Count 4.6 K/mm3 (4.5-10.0)
[2024-03-27 07:02] LABS: Albumin Level 4.1 g/dL (3.5-5.1); Alkaline Phosphatase 84 U/L (38-126); Anion Gap 8 mmol/L (4-12); Aspartate Amino Transferase 19 U/L (17-59); Bilirubin,Total 1.2 mg/dL (0.2-1.3); Blood Urea Nitrogen 19 mg/dL (9-20); Calcium 9.1 mg/dL (8.4-10.2); Carbon Dioxide 29 mmol/L (22-30); Chloride 102 mmol/L (98-107); Estimated CRCL calculation 56 ml/min; Estimated Glomerular Filt Rate 55; Glucose 104 mg/dL (65-110); Potassium 3.6 mmol/L (3.4-5.0); Sodium 139 mmol/L (137-145)
[2024-03-27 07:07] LABS: Alanine Aminotransferase < 6 U/L (6-50)
[2024-03-27] MEDS: DONEPEZIL HCL 10 MG TABLET PO (09:31)
[2024-03-27] MEDS: SENNA/DOCUSATE SODIUM TABLET 1 TAB PO ×2 (09:31→17:44)
[2024-03-27] MEDS: CARBIDOPA/LEVODOPA 25/100 MG TABLET 2 TABLET PO ×3 (09:31→17:44)
[2024-03-27] MEDS: CARBIDOPA/LEVODOPA 12.5/50 MG TABLET 1 TABLET PO ×3 (09:31→17:45)
[2024-03-27] MEDS: SACCHAROMYCES BOULARDII 250 MG CAPSULE PO (09:31)
[2024-03-27] MEDS: polyethylene glycoL 3350 17 GM POWD.PACK PO ×2 (09:32→17:44)
[2024-03-27] MEDS: ENOXAPARIN 40 MG/0.4 ML SYRINGE SUB-Q (09:32)
[2024-03-27] MEDS: LACTULOSE 20 GM/30 ML UDC 45 GM PO (09:32)
--- NOTE | 2024-03-27 10:40 | P.PNIM_ITS ---
Progress Note: A&P Assessment and Plan (1) Unresponsive episode: Code(s): R40.4 - Transient alteration of awareness Status: Acute Assessment and Plan: * Questionable syncope verses orthostatic hypotension due to dehydration secondary to his dementia * Head CT was negative * Carotid Doppler study showed 50-69% stenosis in the right ICA, less than 50% stenosis in the left ICA * Continue orthostatic blood pressures Q shift. Patient has had a consistent 20 point drop in systolic blood pressure with every position change. * Bhargav hose ordered, consider abdominal binder * Encourage oral intake * Will check cortisol to rule out adrenal insufficiency * Last TSH on 10/12/2022 was 1.250, will obtain another TSH today * Echocardiogram showed a normal LV systolic function with an estimated EF of 65-70%, grade 1 diastolic dysfunction, moderate aortic valve regurgitation * PT and OT ordered (2) Fecal impaction: Code(s): K56.41 - Fecal impaction Status: Acute Assessment and Plan: * Chest abdomen pelvis CT showed fecal impaction/constipation * Patient was given a lactulose enema and oral lactulose x1 yesterday and had 1 bowel movement * We will order a Fleet's enema today and continue lactulose * Continue polyethylene glycol b.i.d. * KUB today showed: FINDINGS: Bowel gas pattern is normal. Moderate colonic fecal loading. There is no evidence of free air, mass, organomegaly, ascites or obstruction. No abnormal calculi are seen. The bones appear intact. IMPRESSION: 1: No acute abdominal abnormality identified. * Imodium held (3) Renal insufficiency: Code(s): N28.9 - Disorder of kidney and ureter, unspecified Status: Acute Assessment and Plan: * Initial creatinine 1.50, E GFR was 46 * Creatinine now down to 1.30, EGFR 55. * Continue to trend (4) Parkinsons disease: Code(s): G20.A1 - Parkinson's disease without dyskinesia, without mention of fluctuations Status: Acute Assessment and Plan: * Continue carbidopa/levodopa Subjective Date/time seen: 03/27/24 10:40 Interval history: at bedside. Patient denies pain or shortness of breath. reports that patient needs reminded to drink but patient eats and drinks well when reminded. Review of Systems Review of Systems: All systems reviewed & are unremarkable except as noted in HPI and below Exam Const: General: comfortable and no acute distress Resp: Effort & Inspection: normal respiratory effort Auscultation: clear to auscultation bilaterally Cardio: Rate: regular rate Rhythm: regular rhythm Other: Telemetry SR 73. GI: GI Palp: Yes Soft to palpation Auscultation: normal bowel sounds Other: Bowel movement 03/26. : Other: Incontinent currently wearing a depends. Skin: General skin exam: no rashes or lesions noted Neuro: Other: A&Ox1. Extrem: General: no pedal edema Psych: Other: minimally interactive. Objective Data Vital Signs Vital Signs: Vital Signs - 24 hr 03/26/24 11:28 03/26/24 11:47 03/26/24 11:46 Temperature 98.5 F 98.5 F Pulse Rate 70 70 Respiratory Rate 18 18 Blood Pressure 141/71 H 141/71 H 120/71 Pulse Oximetry 96 96 Oxygen Delivery 03/26/24 11:46 03/26/24 12:00 03/26/24 15:16 Temperature Pulse Rate 79 Respiratory Rate Blood Pressure 108/76 Pulse Oximetry Oxygen Delivery Room Air 03/26/24 16:00 03/26/24 16:00 03/26/24 20:00 Temperature 97 F L 97.6 F Pulse Rate 84 84 68 Respiratory Rate 20 18 Blood Pressure 152/87 H 144/81 H Pulse Oximetry 97 99 Oxygen Delivery 03/26/24 20:00 03/26/24 20:00 03/27/24 00:00 Temperature Pulse Rate 61 68 Respiratory Rate Blood Pressure Pulse Oximetry Oxygen Delivery Room Air 03/27/24 00:00 03/27/24 04:00 03/27/24 04:00 Temperature 98.1 F 98.4 F Pulse Rate 61 76 73 Respiratory Rate 16 16 Blood Pressure 145/80 H 144/81 H Pulse Oximetry 99 94 Oxygen Delivery 03/27/24 07:38 03/27/24 08:00 03/27/24 08:00 Temperature 96.9 F L 97.9 F Pulse Rate 71 69 Respiratory Rate 16 18 Blood Pressure 126/95 H 127/71 Pulse Oximetry 95 96 97 Oxygen Delivery Room Air 03/27/24 09:58 03/27/24 09:59 Temperature Pulse Rate Respiratory Rate Blood Pressure 106/69 91/65 L Pulse Oximetry Oxygen Delivery Intake/Output Intake/Output: Intake & Output 10/03/25/24 03/26/24 03/27/24 23:59 23:59 23:59 23:59 Intake Total 222 476 730 270 Output Total 25 Balance 197 476 730 270 Meds/Results Medications: Active Medications Generic Name Dose Route Start Last Admin Trade Name Freq PRN Reason Stop Dose Admin Acetaminophen 650 mg 03/24/24 22:54 03/26/24 12:07 Acetaminophen 325 Mg Tablet PO 650 mg Q6H PRN Administration Mild Pain (1-3) or Fever Baclofen 5 mg 03/24/24 22:55 Baclofen 5 Mg Tablet PO TID PRN Cramps Carbidopa/Levodopa 2 tablet 03/25/24 09:00 03/27/24 09:31 Carbidopa/Levodopa 25/100 Mg Tablet PO 2 tablet TID GEORGE Administration Carbidopa/Levodopa 3 tablet 03/24/24 23:05 03/26/24 21:07 Carbidopa/Levodopa 25/100 Mg Tablet PO 3 tablet HS GEORGE Administration Carbidopa/Levodopa 1 tablet 03/25/24 09:00 03/27/24 09:31 Carbidopa/Levodopa 12.5/50 Mg Tablet PO 1 tablet TID GEORGE Administration Donepezil HCl 10 mg 03/25/24 09:00 03/27/24 09:31 Donepezil Hcl 10 Mg Tablet PO 10 mg DAILY GEORGE Administration Enoxaparin Sodium 40 mg 03/25/24 09:00 03/27/24 09:32 Enoxaparin 40 Mg/0.4 Ml Syringe SUB-Q 40 mg DAILY GEORGE Administration Hydrocortisone 1 applic 03/24/24 22:55 Hydrocortisone 1% 30 Gm Cream TOPICAL TID PRN Hemorrhoids Lactulose 45 gm 03/26/24 09:00 03/27/24 09:32 Lactulose 20 Gm/30 Ml Udc PO 45 gm QAM GEORGE Administration Loperamide HCl 2 mg 03/24/24 22:55 Loperamide Hcl 2 Mg Capsule PO PRN PRN Loose Stool Melatonin 10 mg 03/24/24 23:05 03/26/24 21:08 Melatonin 5 Mg Tablet PO 10 mg HS GEORGE Administration Ondansetron HCl 4 mg 03/24/24 13:46 Ondansetron Inj 4 Mg/2 Ml Vial IV PUSH Q4H PRN Nausea Perflutren Lipid Microsphere 0 ml 03/24/24 22:54 Perflutren Lipid Microspheres 1.5 Ml Vial Diluted To 10 Ml Total Volume IV PUSH 03/27/24 22:54 ONCE PRN adequate visualization Protocol Polyethylene Glycol 17 gm 03/24/24 22:55 Polyethylene Glycol 3350 17 Gm Powd.Pack PO DAILY PRN Constipation Polyethylene Glycol 17 gm 03/25/24 17:00 03/27/24 09:32 Polyethylene Glycol 3350 17 Gm Powd.Pack PO 17 gm BID GEORGE Administration Saccharomyces Boulardii 250 mg 03/25/24 09:00 03/27/24 09:31 Saccharomyces Boulardii 250 Mg Capsule PO 250 mg DAILY GEORGE Administration Senna/Docusate Sodium 1 tab 03/25/24 17:00 03/27/24 09:31 Senna/Docusate Sodium Tablet PO 1 tab BID GEORGE Administration Tramadol HCl 50 mg 03/24/24 22:55 Tramadol Hcl (*Crx) 50 Mg Tablet PO Q8H PRN PAIN RATED 4-6 Radiology Results: ITS Impressions Ankle X-Ray 03/24/24 11:37 IMPRESSION: 1: NO ACUTE BONE OR JOINT ABNORMALITY IDENTIFIED. Head CT 03/24/24 12:10 IMPRESSION: No acute intracranial findings. Chest/Abdomen/Pelvis CT 03/24/24 12:14 Impression: 5.1 cm ascending aortic aneurysm. Small pericardial effusion. Nonspecific mildly enlarged mediastinal lymph nodes. Fecal impaction/constipation. Carotid Doppler Study 03/25/24 14:54 IMPRESSION: 1. 50-69% stenosis in the right internal carotid artery. 2. <50% stenosis in the left internal carotid artery. Abdomen X-Ray 03/27/24 08:51 IMPRESSION: 1: No acute abdominal abnormality identified. Labs Labs: Laboratory Results - last 24 hr 03/26/24 03/27/24 17:19 06:21 WBC 4.6 RBC 4.01 L Hgb 12.7 L Hct 37.9 L MCV 94.5 MCH 31.7 MCHC 33.5 RDW 12.6 Plt Count 159 MPV 10.4 Immature Gran % (Auto) 0.4 Neut % (Auto) 68.1 Lymph % (Auto) 16.8 L White % (Auto) 11.8 H Eos % (Auto) 2.2 Baso % (Auto) 0.7 Lymph # (Auto) 0.77 L White # (Auto) 0.5 Eos # (Auto) 0.1 Baso # (Auto) 0.0 Abs Immat Gran (auto) 0.02 Absolute Neuts (auto) 3.1 Absolute Nucleated RBC 0.000 Nucleated RBC % 0.0 Sodium 139 Potassium 3.6 Chloride 102 Carbon Dioxide 29 Anion Gap 8 BUN 19 Creatinine 1.30 Estim Creat Clear Calc 56 Estimated GFR 55 L Glucose 104 Calcium 9.1 Total Bilirubin 1.2 AST 19 ALT < 6 L Alkaline Phosphatase 84 Total Protein 7.0 Albumin 4.1 TSH 0.941 Random Cortisol 6.32 Quality VTE Prophylaxis VTE prophylaxis: pharmacologic ordered
[2024-03-27] MEDS: CARBIDOPA/LEVODOPA 25/100 MG TABLET 3 TABLET PO (21:06)
[2024-03-27] MEDS: MELATONIN 5 MG TABLET 10 MG PO (21:07)
[2024-03-28] VITALS (11 sets, daily range): BP systolic 83–147; BP diastolic 64–89; PULSE 61–78; RESP 16–20; TEMP 36.1–37.2; O2SAT 95–100
[2024-03-28 06:58] LABS: Basophils Absolute Auto 0.1 K/mm3 (0.0-0.1); Basophils Percent Auto 1.1 % (0.2-1.2); Eosinophils Absolute Auto 0.1 K/mm3 (0-0.3); Eosinophils Percent Auto 2.7 % (0-4.4); Hematocrit 34.7 % (42.0-52.0); Immature Granulocyte Absolute 0.02 K/mm3 (0.00-0.031); Immature Granulocyte Percent A 0.5 % (0-0.5); Lymphocytes Absolute Auto 0.72 K/mm3 (0.9-3.2); Lymphocytes Percent Auto 16.4 % (18.3-44.2); Mean Corpuscular HGB Conc 34.6 g/dl (32-36); Mean Corpuscular Hemoglobin 32.4 pg (26-34); Mean Corpuscular Volume 93.8 fl (80-100); Mean Platelet Volume 10.6 fl (7.4-10.4); Monocytes Absolute Auto 0.5 K/mm3 (0.1-0.6); Monocytes Percent Auto 10.5 % (2.6-8.5); Neutrophils Percent Auto 68.8 % (45.5-73.1); Platelet Count Result 154 k/mm3 (150-375); Red Cell Distribution Width 12.6 % (11.5-14.5); White Blood Count 4.4 K/mm3 (4.5-10.0)
[2024-03-28 07:21] LABS: Albumin Level 3.8 g/dL (3.5-5.1); Alkaline Phosphatase 78 U/L (38-126); Anion Gap 8 mmol/L (4-12); Aspartate Amino Transferase 20 U/L (17-59); Bilirubin,Total 1.2 mg/dL (0.2-1.3); Blood Urea Nitrogen 20 mg/dL (9-20); Calcium 8.7 mg/dL (8.4-10.2); Carbon Dioxide 26 mmol/L (22-30); Chloride 102 mmol/L (98-107); Estimated CRCL calculation 60 ml/min; Estimated Glomerular Filt Rate 60; Glucose 93 mg/dL (65-110); Potassium 3.6 mmol/L (3.4-5.0); Sodium 136 mmol/L (137-145)
[2024-03-28 07:34] LABS: Alanine Aminotransferase < 6 U/L (6-50)
[2024-03-28] MEDS: polyethylene glycoL 3350 17 GM POWD.PACK PO ×2 (09:20→17:28)
[2024-03-28] MEDS: CARBIDOPA/LEVODOPA 25/100 MG TABLET 2 TABLET PO ×2 (09:20→17:23)
[2024-03-28] MEDS: CARBIDOPA/LEVODOPA 12.5/50 MG TABLET 1 TABLET PO ×2 (09:21→17:22)
[2024-03-28] MEDS: SENNA/DOCUSATE SODIUM TABLET 1 TAB PO ×2 (09:21→17:23)
[2024-03-28] MEDS: SACCHAROMYCES BOULARDII 250 MG CAPSULE PO (09:21)
[2024-03-28] MEDS: ENOXAPARIN 40 MG/0.4 ML SYRINGE SUB-Q (09:21)
[2024-03-28] MEDS: DONEPEZIL HCL 10 MG TABLET PO (09:21)
[2024-03-28] MEDS: LACTULOSE 20 GM/30 ML UDC 45 GM PO (09:30)
[2024-03-28] MEDS: ACETAMINOPHEN 325 MG TABLET 650 MG PO (09:35)
--- NOTE | 2024-03-28 10:37 | P.PNIM_ITS ---
Progress Note: A&P Assessment and Plan (1) Unresponsive episode: Code(s): R40.4 - Transient alteration of awareness Status: Acute Assessment and Plan: * Questionable syncope verses orthostatic hypotension due to dehydration secondary to his dementia * Head CT was negative * Carotid Doppler study showed 50-69% stenosis in the right ICA, less than 50% stenosis in the left ICA * Continue orthostatic blood pressures Q shift. Patient has had a consistent 20 point drop in systolic blood pressure with every position change. Sitting BP 106/73, Supine BP 145/89, and standing BP 83/68. * Patient given NS@100 ml/hr with blood pressure increased to 135/78. * Start on Midodrine 2.5 mg PO TID. * Bhargav hose ordered, consider abdominal binder * Encourage oral intake * Will check cortisol to rule out adrenal insufficiency * Last TSH on 10/12/2022 was 1.250, TSH 03/26/24 0.941 * Echocardiogram showed a normal LV systolic function with an estimated EF of 65-70%, grade 1 diastolic dysfunction, moderate aortic valve regurgitation * PT and OT ordered (2) Fecal impaction: Code(s): K56.41 - Fecal impaction Status: Acute Assessment and Plan: * Chest abdomen pelvis CT showed fecal impaction/constipation * Last BM 03/27/24. * Continue Lactulose 45 gm PO daily, polyethylene glycol b.i.d. Bisacodyl suppository 10 mg MT given today. * KUB 03/27/24 showed: FINDINGS: Bowel gas pattern is normal. Moderate colonic fecal loading. There is no evidence of free air, mass, organomegaly, ascites or obstruction. No abnormal calculi are seen. The bones appear intact. IMPRESSION: 1: No acute abdominal abnormality identified. * Imodium held (3) Orthostatic hypotension: Code(s): I95.1 - Orthostatic hypotension Status: Acute Assessment and Plan: * Orthostatic vital signs: Sitting BP 106/73, Supine BP 145/89, and standing BP 83/68. * Patient given NS@100 ml/hr with blood pressure increased to 135/78. * Start on Midodrine 2.5 mg PO TID. (4) Renal insufficiency: Code(s): N28.9 - Disorder of kidney and ureter, unspecified Status: Acute Assessment and Plan: * Initial creatinine 1.50, E GFR was 46 * Creatinine now down to 1.20, EGFR 60. * Continue to trend (5) Parkinsons disease: Code(s): G20.A1 - Parkinson's disease without dyskinesia, without mention of fluctuations Status: Acute Assessment and Plan: * Continue carbidopa/levodopa Subjective Date/time seen: 03/28/24 10:37 Interval history: at bedside. Patient denies pain or shortness of breath. Patient blood pressure decreased to 83/68 while standing during orthostatics. Patient given NS@100 ml/hr x 5 hours and start on Midodrine 2.5 mg PO TID. Review of Systems Review of Systems: All systems reviewed & are unremarkable except as noted in HPI and below Exam Const: General: comfortable and no acute distress Resp: Effort & Inspection: normal respiratory effort Auscultation: clear to auscultation bilaterally Cardio: Rate: regular rate Rhythm: regular rhythm GI: GI Palp: Yes Soft to palpation Auscultation: normal bowel sounds Other: Last BM 03/27. : Other: Incontinent currently wearing a depends. Skin: General skin exam: no rashes or lesions noted Extrem: General: no pedal edema Psych: Other: minimally interactive. Objective Data Vital Signs Vital Signs: Vital Signs - 24 hr 03/27/24 12:00 03/27/24 12:00 03/27/24 16:00 Temperature 97.9 F Pulse Rate 77 70 64 Respiratory Rate 18 Blood Pressure 124/66 Pulse Oximetry 97 Oxygen Delivery 03/27/24 16:00 03/27/24 20:00 03/27/24 20:00 Temperature 98.1 F 98.4 F Pulse Rate 84 61 Respiratory Rate 18 18 Blood Pressure 141/76 H 144/83 H Pulse Oximetry 97 97 Oxygen Delivery Room Air 03/27/24 20:00 03/27/24 23:56 03/28/24 00:00 Temperature 98.6 F Pulse Rate 56 L 70 62 Respiratory Rate 16 Blood Pressure 126/81 Pulse Oximetry 98 Oxygen Delivery 03/28/24 04:00 03/28/24 04:00 03/28/24 08:00 Temperature 98.5 F 97.0 F L Pulse Rate 63 74 61 Respiratory Rate 16 20 Blood Pressure 138/81 113/73 Pulse Oximetry 100 99 Oxygen Delivery Intake/Output Intake/Output: Intake & Output 10/22/24 03/26/24 03/27/24 03/28/24 23:59 23:59 23:59 23:59 Intake Total 332 361 270 067 Balance 476 502 731 382 Meds/Results Medications: Active Medications Generic Name Dose Route Start Last Admin Trade Name Freq PRN Reason Stop Dose Admin Acetaminophen 650 mg 03/24/24 22:54 03/28/24 09:35 Acetaminophen 325 Mg Tablet PO 650 mg Q6H PRN Administration Mild Pain (1-3) or Fever Baclofen 5 mg 03/24/24 22:55 Baclofen 5 Mg Tablet PO TID PRN Cramps Carbidopa/Levodopa 2 tablet 03/25/24 09:00 03/28/24 09:20 Carbidopa/Levodopa 25/100 Mg Tablet PO 2 tablet TID GEORGE Administration Carbidopa/Levodopa 3 tablet 03/24/24 23:05 03/27/24 21:06 Carbidopa/Levodopa 25/100 Mg Tablet PO 3 tablet HS GEORGE Administration Carbidopa/Levodopa 1 tablet 03/25/24 09:00 03/28/24 09:21 Carbidopa/Levodopa 12.5/50 Mg Tablet PO 1 tablet TID GEORGE Administration Donepezil HCl 10 mg 03/25/24 09:00 03/28/24 09:21 Donepezil Hcl 10 Mg Tablet PO 10 mg DAILY GEORGE Administration Enoxaparin Sodium 40 mg 03/25/24 09:00 03/27/24 09:32 Enoxaparin 40 Mg/0.4 Ml Syringe SUB-Q 40 mg DAILY GEORGE Administration Hydrocortisone 1 applic 03/24/24 22:55 Hydrocortisone 1% 30 Gm Cream TOPICAL TID PRN Hemorrhoids Lactulose 45 gm 03/26/24 09:00 03/27/24 09:32 Lactulose 20 Gm/30 Ml Udc PO 45 gm QAM GEORGE Administration Loperamide HCl 2 mg 03/24/24 22:55 Loperamide Hcl 2 Mg Capsule PO PRN PRN Loose Stool Melatonin 10 mg 03/24/24 23:05 03/27/24 21:07 Melatonin 5 Mg Tablet PO 10 mg HS GEORGE Administration Ondansetron HCl 4 mg 03/24/24 13:46 Ondansetron Inj 4 Mg/2 Ml Vial IV PUSH Q4H PRN Nausea Polyethylene Glycol 17 gm 03/24/24 22:55 Polyethylene Glycol 3350 17 Gm Powd.Pack PO DAILY PRN Constipation Polyethylene Glycol 17 gm 03/25/24 17:00 03/28/24 09:20 Polyethylene Glycol 3350 17 Gm Powd.Pack PO 17 gm BID GEORGE Administration Saccharomyces Boulardii 250 mg 03/25/24 09:00 03/28/24 09:21 Saccharomyces Boulardii 250 Mg Capsule PO 250 mg DAILY GEORGE Administration Senna/Docusate Sodium 1 tab 03/25/24 17:00 03/28/24 09:21 Senna/Docusate Sodium Tablet PO 1 tab BID GEORGE Administration Tramadol HCl 50 mg 03/24/24 22:55 Tramadol Hcl (*Crx) 50 Mg Tablet PO Q8H PRN PAIN RATED 4-6 Radiology Results: ITS Impressions Ankle X-Ray 03/24/24 11:37 IMPRESSION: 1: NO ACUTE BONE OR JOINT ABNORMALITY IDENTIFIED. Head CT 03/24/24 12:10 IMPRESSION: No acute intracranial findings. Chest/Abdomen/Pelvis CT 03/24/24 12:14 Impression: 5.1 cm ascending aortic aneurysm. Small pericardial effusion. Nonspecific mildly enlarged mediastinal lymph nodes. Fecal impaction/constipation. Carotid Doppler Study 03/25/24 14:54 IMPRESSION: 1. 50-69% stenosis in the right internal carotid artery. 2. <50% stenosis in the left internal carotid artery. Abdomen X-Ray 03/27/24 08:51 IMPRESSION: 1: No acute abdominal abnormality identified. Labs Labs: Laboratory Results - last 24 hr 03/28/24 05:59 WBC 4.4 L RBC 3.70 L Hgb 12.0 L Hct 34.7 L MCV 93.8 MCH 32.4 MCHC 34.6 RDW 12.6 Plt Count 154 MPV 10.6 H Immature Gran % (Auto) 0.5 Neut % (Auto) 68.8 Lymph % (Auto) 16.4 L [place] % (Auto) 10.5 H Eos % (Auto) 2.7 Baso % (Auto) 1.1 Lymph # (Auto) 0.72 L [place] # (Auto) 0.5 Eos # (Auto) 0.1 Baso # (Auto) 0.1 Abs Immat Gran (auto) 0.02 Absolute Neuts (auto) 3.0 Absolute Nucleated RBC 0.000 Nucleated RBC % 0.0 Sodium 136 L Potassium 3.6 Chloride 102 Carbon Dioxide 26 Anion Gap 8 BUN 20 Creatinine 1.20 Estim Creat Clear Calc 60 Estimated GFR 60 Glucose 93 Calcium 8.7 Total Bilirubin 1.2 AST 20 ALT < 6 L Alkaline Phosphatase 78 Total Protein 7.0 Albumin 3.8 Quality VTE Prophylaxis VTE prophylaxis: pharmacologic ordered
[2024-03-28] MEDS: SODIUM CHLORIDE 0.9% IV 500 ML 100 ML IV CONT (12:25)
[2024-03-28] MEDS: MIDODRINE HCL 2.5 MG TABLET PO (17:24)
[2024-03-28] MEDS: BISACODYL 10 MG SUPPOSITORY RECTAL (17:28)
[2024-03-29] VITALS (9 sets, daily range): BP systolic 95–164; BP diastolic 61–86; PULSE 52–72; RESP 14–18; TEMP 36.5–37.1; O2SAT 97–100
[2024-03-29] MEDS: MELATONIN 5 MG TABLET 10 MG PO ×2 (00:45→22:13)
[2024-03-29] MEDS: CARBIDOPA/LEVODOPA 25/100 MG TABLET 3 TABLET PO ×2 (00:45→22:12)
[2024-03-29 06:28] LABS: Basophils Absolute Auto 0.1 K/mm3 (0.0-0.1); Basophils Percent Auto 0.9 % (0.2-1.2); Eosinophils Absolute Auto 0.2 K/mm3 (0-0.3); Eosinophils Percent Auto 3.4 % (0-4.4); Hemoglobin 12.7 g/dL (14.0-18.0); Immature Granulocyte Absolute 0.03 K/mm3 (0.00-0.031); Immature Granulocyte Percent A 0.6 % (0-0.5); Lymphocytes Absolute Auto 0.69 K/mm3 (0.9-3.2); Lymphocytes Percent Auto 12.9 % (18.3-44.2); Mean Corpuscular HGB Conc 34.3 g/dl (32-36); Mean Corpuscular Hemoglobin 32.3 pg (26-34); Mean Corpuscular Volume 94.1 fl (80-100); Mean Platelet Volume 10.5 fl (7.4-10.4); Monocytes Absolute Auto 0.6 K/mm3 (0.1-0.6); Monocytes Percent Auto 11.1 % (2.6-8.5); Neutrophils Absolute Auto 3.8 K/mm3 (1.3-6.7); Neutrophils Percent Auto 71.1 % (45.5-73.1); Platelet Count Result 158 k/mm3 (150-375); Red Blood Count 3.93 M/mm3 (4.6-6.20); Red Cell Distribution Width 12.5 % (11.5-14.5); White Blood Count 5.3 K/mm3 (4.5-10.0)
[2024-03-29 06:32] LABS: Albumin Level 3.8 g/dL (3.5-5.1); Alkaline Phosphatase 76 U/L (38-126); Anion Gap 11 mmol/L (4-12); Aspartate Amino Transferase 18 U/L (17-59); Bilirubin,Total 0.9 mg/dL (0.2-1.3); Blood Urea Nitrogen 18 mg/dL (9-20); Calcium 8.6 mg/dL (8.4-10.2); Carbon Dioxide 26 mmol/L (22-30); Chloride 103 mmol/L (98-107); Estimated CRCL calculation 60 ml/min; Estimated Glomerular Filt Rate 60; Glucose 91 mg/dL (65-110); Potassium 3.6 mmol/L (3.4-5.0); Sodium 140 mmol/L (137-145)
[2024-03-29 06:33] LABS: Alanine Aminotransferase < 6 U/L (6-50)
[2024-03-29] MEDS: DONEPEZIL HCL 10 MG TABLET PO (08:50)
[2024-03-29] MEDS: CARBIDOPA/LEVODOPA 25/100 MG TABLET 2 TABLET PO ×3 (08:50→17:06)
[2024-03-29] MEDS: SENNA/DOCUSATE SODIUM TABLET 1 TAB PO ×2 (08:50→17:06)
[2024-03-29] MEDS: MIDODRINE HCL 2.5 MG TABLET PO (08:50)
[2024-03-29] MEDS: SACCHAROMYCES BOULARDII 250 MG CAPSULE PO (08:50)
[2024-03-29] MEDS: polyethylene glycoL 3350 17 GM POWD.PACK PO ×2 (08:50→17:07)
[2024-03-29] MEDS: CARBIDOPA/LEVODOPA 12.5/50 MG TABLET 1 TABLET PO ×3 (08:50→17:06)
[2024-03-29] MEDS: ENOXAPARIN 40 MG/0.4 ML SYRINGE SUB-Q (08:51)
[2024-03-29] MEDS: LACTULOSE 20 GM/30 ML UDC 45 GM PO (08:51)
--- NOTE | 2024-03-29 10:35 | P.PNIM_ITS ---
Progress Note: A&P Assessment and Plan (1) Unresponsive episode: Code(s): R40.4 - Transient alteration of awareness Status: Acute Assessment and Plan: * Questionable syncope verses orthostatic hypotension due to dehydration secondary to his dementia * Head CT was negative * Carotid Doppler study showed 50-69% stenosis in the right ICA, less than 50% stenosis in the left ICA * Continue orthostatic blood pressures Q shift. Patient has had a consistent 20 point drop in systolic blood pressure with every position change. Sitting BP 123/76, Supine BP 142/80, and standing BP 98/78. * Increased Midodrine 5 mg PO TID. * Bhargav hose ordered, consider abdominal binder * Encourage oral intake * Will check cortisol to rule out adrenal insufficiency, cortisol 6.32. * Last TSH on 10/12/2022 was 1.250, TSH 03/26/24 0.941 * Echocardiogram showed a normal LV systolic function with an estimated EF of 65-70%, grade 1 diastolic dysfunction, moderate aortic valve regurgitation * PT and OT ordered (2) 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: Code(s): G90.3 - Multi-system degeneration of the autonomic nervous system Status: Acute Assessment and Plan: * supine BP 142/80, sitting 123/76, standing 98/78. * Increase Midodrine 5 mg PO TID. * Encourage PO intake. (3) Aneurysm of ascending aorta without rupture: Code(s): I71.21 - Aneurysm of the ascending aorta, without rupture Status: Acute Assessment and Plan: * Ascending aortic aneurysm 5.1 cm in diameter on CT on 03/24/24, no dissection. * Patient will need to follow up outpatient with vascular doctor. (4) Fecal impaction: Code(s): K56.41 - Fecal impaction Status: Acute Assessment and Plan: * Chest abdomen pelvis CT showed fecal impaction/constipation * Last BM 03/29/24. * Continue Lactulose 45 gm PO daily, polyethylene glycol b.i.d. * KUB 03/27/24 showed: FINDINGS: Bowel gas pattern is normal. Moderate colonic fecal loading. There is no evidence of free air, mass, organomegaly, ascites or obstruction. No abnormal calculi are seen. The bones appear intact. IMPRESSION: 1: No acute abdominal abnormality identified. * Imodium held (5) Renal insufficiency: Code(s): N28.9 - Disorder of kidney and ureter, unspecified Status: Acute Assessment and Plan: * Initial creatinine 1.50, E GFR was 46 * Creatinine now down to 1.20, EGFR 60. * Continue to trend (6) Parkinsons disease: Code(s): G20.A1 - Parkinson's disease without dyskinesia, without mention of fluctuations Status: Acute Assessment and Plan: * Continue carbidopa/levodopa Subjective Date/time seen: 03/29/24 10:35 Interval history: at bedside. Patient denies pain or shortness of breath. Patient continues to be orthostatic with position changes (supine BP 142/80, sitting 123/76, ivan ding 98/78). Review of Systems Review of Systems: All systems reviewed & are unremarkable except as noted in HPI and below Exam Const: General: comfortable and no acute distress Resp: Effort & Inspection: normal respiratory effort Auscultation: clear to auscultation bilaterally Cardio: Rate: regular rate Rhythm: regular rhythm GI: GI Palp: Yes Soft to palpation Auscultation: normal bowel sounds Other: Last BM 03/29/24. : Other: Incontinent currently wearing a depends. Skin: General skin exam: no rashes or lesions noted Extrem: General: no pedal edema Psych: Other: minimally interactive. Objective Data Vital Signs Vital Signs: Vital Signs - 24 hr 03/28/24 11:10 03/28/24 11:00 03/28/24 11:10 Temperature Pulse Rate Respiratory Rate Blood Pressure 145/89 H 106/73 83/68 L Pulse Oximetry Oxygen Delivery 03/28/24 14:00 03/28/24 12:00 03/28/24 15:00 Temperature 99.0 F 97.1 F L Pulse Rate 78 67 66 Respiratory Rate 18 20 Blood Pressure 135/78 147/69 H Pulse Oximetry 96 95 Oxygen Delivery 03/28/24 16:00 03/28/24 16:00 03/28/24 20:00 Temperature 97.3 F L 98.1 F Pulse Rate 72 74 61 Respiratory Rate 20 18 Blood Pressure 124/64 123/84 Pulse Oximetry 98 98 Oxygen Delivery 03/28/24 20:00 03/29/24 00:00 03/29/24 00:00 Temperature 98.8 F Pulse Rate 63 72 Respiratory Rate 16 Blood Pressure 138/81 Pulse Oximetry 100 Oxygen Delivery Room Air 03/29/24 04:00 03/29/24 04:00 03/29/24 07:00 Temperature 98 F Pulse Rate 61 60 Respiratory Rate 18 Blood Pressure 127/81 142/80 H Pulse Oximetry 100 Oxygen Delivery 03/29/24 07:05 03/29/24 07:10 03/29/24 08:00 Temperature 98.1 F Pulse Rate 60 Respiratory Rate 16 Blood Pressure 123/76 98/78 L 95/61 L Pulse Oximetry 98 Oxygen Delivery Intake/Output Intake/Output: Intake & Output 03/26/24 03/27/24 03/28/24 03/29/24 23:59 23:59 23:59 23:59 Intake Total 274 806 3762 318 Balance 324 615 8247 318 Meds/Results Medications: Active Medications Generic Name Dose Route Start Last Admin Trade Name Freq PRN Reason Stop Dose Admin Acetaminophen 650 mg 03/24/24 22:54 03/28/24 09:35 Acetaminophen 325 Mg Tablet PO 650 mg Q6H PRN Administration Mild Pain (1-3) or Fever Baclofen 5 mg 03/24/24 22:55 Baclofen 5 Mg Tablet PO TID PRN Cramps Carbidopa/Levodopa 2 tablet 03/25/24 09:00 03/29/24 08:50 Carbidopa/Levodopa 25/100 Mg Tablet PO 2 tablet TID GEORGE Administration Carbidopa/Levodopa 3 tablet 03/24/24 23:05 03/29/24 00:45 Carbidopa/Levodopa 25/100 Mg Tablet PO 3 tablet HS GEORGE Administration Carbidopa/Levodopa 1 tablet 03/25/24 09:00 03/29/24 08:50 Carbidopa/Levodopa 12.5/50 Mg Tablet PO 1 tablet TID GEORGE Administration Donepezil HCl 10 mg 03/25/24 09:00 03/29/24 08:50 Donepezil Hcl 10 Mg Tablet PO 10 mg DAILY GEORGE Administration Enoxaparin Sodium 40 mg 03/25/24 09:00 03/29/24 08:51 Enoxaparin 40 Mg/0.4 Ml Syringe SUB-Q 40 mg DAILY GEORGE Administration Hydrocortisone 1 applic 03/24/24 22:55 Hydrocortisone 1% 30 Gm Cream TOPICAL TID PRN Hemorrhoids Lactulose 45 gm 03/26/24 09:00 03/29/24 08:51 Lactulose 20 Gm/30 Ml Udc PO 45 gm QAM GEORGE Administration Loperamide HCl 2 mg 03/24/24 22:55 Loperamide Hcl 2 Mg Capsule PO PRN PRN Loose Stool Melatonin 10 mg 03/24/24 23:05 03/29/24 00:45 Melatonin 5 Mg Tablet PO 10 mg HS GEORGE Administration Midodrine 5 mg 03/29/24 13:00 Midodrine Hcl 2.5 Mg Tablet PO TID GEORGE Ondansetron HCl 4 mg 03/24/24 13:46 Ondansetron Inj 4 Mg/2 Ml Vial IV PUSH Q4H PRN Nausea Polyethylene Glycol 17 gm 03/24/24 22:55 Polyethylene Glycol 3350 17 Gm Powd.Pack PO DAILY PRN Constipation Polyethylene Glycol 17 gm 03/25/24 17:00 03/29/24 08:50 Polyethylene Glycol 3350 17 Gm Powd.Pack PO 17 gm BID GEORGE Administration Saccharomyces Boulardii 250 mg 03/25/24 09:00 03/29/24 08:50 Saccharomyces Boulardii 250 Mg Capsule PO 250 mg DAILY GEORGE Administration Senna/Docusate Sodium 1 tab 03/25/24 17:00 03/29/24 08:50 Senna/Docusate Sodium Tablet PO 1 tab BID GEORGE Administration Tramadol HCl 50 mg 03/24/24 22:55 Tramadol Hcl (*Crx) 50 Mg Tablet PO Q8H PRN PAIN RATED 4-6 Radiology Results: ITS Impressions Ankle X-Ray 03/24/24 11:37 IMPRESSION: 1: NO ACUTE BONE OR JOINT ABNORMALITY IDENTIFIED. Head CT 03/24/24 12:10 IMPRESSION: No acute intracranial findings. Chest/Abdomen/Pelvis CT 03/24/24 12:14 Impression: 5.1 cm ascending aortic aneurysm. Small pericardial effusion. Nonspecific mildly enlarged mediastinal lymph nodes. Fecal impaction/constipation. Carotid Doppler Study 03/25/24 14:54 IMPRESSION: 1. 50-69% stenosis in the right internal carotid artery. 2. <50% stenosis in the left internal carotid artery. Abdomen X-Ray 03/27/24 08:51 IMPRESSION: 1: No acute abdominal abnormality identified. Labs Labs: Laboratory Results - last 24 hr 03/29/24 06:00 WBC 5.3 RBC 3.93 L Hgb 12.7 L Hct 37.0 L MCV 94.1 MCH 32.3 MCHC 34.3 RDW 12.5 Plt Count 158 MPV 10.5 H Immature Gran % (Auto) 0.6 H Neut % (Auto) 71.1 Lymph % (Auto) 12.9 L [place] % (Auto) 11.1 H Eos % (Auto) 3.4 Baso % (Auto) 0.9 Lymph # (Auto) 0.69 L [place] # (Auto) 0.6 Eos # (Auto) 0.2 Baso # (Auto) 0.1 Abs Immat Gran (auto) 0.03 Absolute Neuts (auto) 3.8 Absolute Nucleated RBC 0.000 Nucleated RBC % 0.0 Sodium 140 Potassium 3.6 Chloride 103 Carbon Dioxide 26 Anion Gap 11 BUN 18 Creatinine 1.20 Estim Creat Clear Calc 60 Estimated GFR 60 Glucose 91 Calcium 8.6 Total Bilirubin 0.9 AST 18 ALT < 6 L Alkaline Phosphatase 76 Total Protein 7.0 Albumin 3.8 Quality VTE Prophylaxis VTE prophylaxis: pharmacologic ordered
[2024-03-29] MEDS: MIDODRINE HCL 2.5 MG TABLET 5 MG PO ×2 (12:35→17:06)
[2024-03-29] MEDS: traMADol HCL (*CRX) 50 MG TABLET PO (12:46)
--- NOTE | 2024-03-29 18:45 | PC.NURSE ---
Patient offered bed bath end of shift, refused at this time, patient confused and irritated with staff yelling nurse banging on table, asking this RN for $25 to pay that sergey off out there
[2024-03-30] VITALS (7 sets, daily range): BP systolic 98–153; BP diastolic 62–83; PULSE 52–72; RESP 14–16; TEMP 36.5–36.7; O2SAT 96–98
[2024-03-30 06:35] LABS: Basophils Percent Auto 0.6 % (0.2-1.2); Eosinophils Absolute Auto 0.3 K/mm3 (0-0.3); Eosinophils Percent Auto 4.5 % (0-4.4); Hematocrit 36.8 % (42.0-52.0); Hemoglobin 12.2 g/dL (14.0-18.0); Immature Granulocyte Absolute 0.03 K/mm3 (0.00-0.031); Immature Granulocyte Percent A 0.5 % (0-0.5); Lymphocytes Absolute Auto 0.65 K/mm3 (0.9-3.2); Lymphocytes Percent Auto 10.2 % (18.3-44.2); Mean Corpuscular HGB Conc 33.2 g/dl (32-36); Mean Corpuscular Hemoglobin 31.4 pg (26-34); Mean Corpuscular Volume 94.6 fl (80-100); Mean Platelet Volume 10.7 fl (7.4-10.4); Monocytes Absolute Auto 0.8 K/mm3 (0.1-0.6); Monocytes Percent Auto 12.5 % (2.6-8.5); Neutrophils Absolute Auto 4.6 K/mm3 (1.3-6.7); Neutrophils Percent Auto 71.7 % (45.5-73.1); Platelet Count Result 150 k/mm3 (150-375); Red Blood Count 3.89 M/mm3 (4.6-6.20); Red Cell Distribution Width 12.6 % (11.5-14.5); White Blood Count 6.4 K/mm3 (4.5-10.0)
[2024-03-30 06:49] LABS: Albumin Level 3.9 g/dL (3.5-5.1); Alkaline Phosphatase 78 U/L (38-126); Anion Gap 11 mmol/L (4-12); Aspartate Amino Transferase 16 U/L (17-59); Bilirubin,Total 0.8 mg/dL (0.2-1.3); Blood Urea Nitrogen 20 mg/dL (9-20); Calcium 8.6 mg/dL (8.4-10.2); Carbon Dioxide 26 mmol/L (22-30); Chloride 103 mmol/L (98-107); Estimated CRCL calculation 60 ml/min; Estimated Glomerular Filt Rate 60; Glucose 96 mg/dL (65-110); Potassium 3.7 mmol/L (3.4-5.0); Sodium 140 mmol/L (137-145)
[2024-03-30 06:52] LABS: Alanine Aminotransferase < 6 U/L (6-50)
[2024-03-30] MEDS: CARBIDOPA/LEVODOPA 25/100 MG TABLET 2 TABLET PO ×2 (07:32→12:07)
[2024-03-30] MEDS: SENNA/DOCUSATE SODIUM TABLET 1 TAB PO (07:32)
[2024-03-30] MEDS: polyethylene glycoL 3350 17 GM POWD.PACK PO (07:32)
[2024-03-30] MEDS: DONEPEZIL HCL 10 MG TABLET PO (07:32)
[2024-03-30] MEDS: SACCHAROMYCES BOULARDII 250 MG CAPSULE PO (07:33)
[2024-03-30] MEDS: CARBIDOPA/LEVODOPA 12.5/50 MG TABLET 1 TABLET PO ×2 (07:33→12:08)
[2024-03-30] MEDS: MIDODRINE HCL 2.5 MG TABLET 5 MG PO ×2 (07:33→12:08)
[2024-03-30] MEDS: ENOXAPARIN 40 MG/0.4 ML SYRINGE SUB-Q (07:39)
[2024-03-30] MEDS: LACTULOSE 20 GM/30 ML UDC 45 GM PO (07:39)
[2024-03-30] MEDS: traMADol HCL (*CRX) 50 MG TABLET PO (10:12)
--- NOTE | 2024-03-30 11:38 | P.DS_ITS ---
DS: Admitting Diagnosis Discharge Date 03/30/2024 Admitting Diagnosis Weakness and altered mental status DS: Discharge Diagnosis Discharge Diagnosis (1) Unresponsive episode: Code(s): R40.4 - Transient alteration of awareness Status: Acute (2) 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: Code(s): G90.3 - Multi-system degeneration of the autonomic nervous system Status: Acute (3) Aneurysm of ascending aorta without rupture: Code(s): I71.21 - Aneurysm of the ascending aorta, without rupture Status: Acute (4) Fecal impaction: Code(s): K56.41 - Fecal impaction Status: Resolved (5) Parkinsons disease: Code(s): G20.A1 - Parkinson's disease without dyskinesia, without mention of fluctuations Status: Acute (6) Dementia in Parkinson's disease: Code(s): G20.A1 - Parkinson's disease without dyskinesia, without mention of fluctuations; F02.80 - Dementia in other diseases classified elsewhere, unspecified severity, without behavioral disturbance, psychotic disturbance, mood disturbance, and anxiety Status: Acute (7) Right leg pain: Code(s): M79.604 - Pain in right leg Status: Chronic DS: Summary Hospital Course Hospital Course: Patient having orthostatic hypotension due to Parkinson's that improved with Midodrine 5 mg PO TID. Bhargav hose and abdominal binder. Echocardiogram showed a normal LV systolic function with an estimated EF of 65-70%, grade 1 diastolic dysfunction, moderate aortic valve regurgitation. Carotid dopplers showed: IMPRESSION: 1. 50-69% stenosis in the right internal carotid artery. 2. <50% stenosis in the left internal carotid artery. Head CT showed no acute intracranial findings. Patient had fecal impaction resolved with bowel regimen. Abdominal CT showed an Ascending Aortic Aneurysm 5.1 cm (no dissection), aware to follow up outpatient with Vascular. Status at Discharge Functional status at discharge: wheelchair bound Overall status at discharge: patient is not back to baseline Time Spent with Patient Time attestation: Total time spent providing and/or coordinating discharge services: Time spent: Greater than 30 minutes Exam Const: General: uncomfortable Other: Pain in right leg is a 9 , frequent, and aching. Resp: Effort & Inspection: normal respiratory effort Auscultation: clear to auscultation bilaterally Cardio: Rate: bradycardic Other: Sinus Bradycardia 56. : Other: Incontinent currently wearing a depends. Skin: General skin exam: no rashes or lesions noted Extrem: General: no pedal edema Psych: Other: minimally interactive. DS: Data Data Completed and Pending Labs on day of discharge: Labs from last 24 hours 03/30/24 06:03 WBC 6.4 RBC 3.89 L Hgb 12.2 L Hct 36.8 L MCV 94.6 MCH 31.4 MCHC 33.2 RDW 12.6 Plt Count 150 MPV 10.7 H Immature Gran % (Auto) 0.5 Neut % (Auto) 71.7 Lymph % (Auto) 10.2 L [place] % (Auto) 12.5 H Eos % (Auto) 4.5 H Baso % (Auto) 0.6 Lymph # (Auto) 0.65 L [place] # (Auto) 0.8 H Eos # (Auto) 0.3 Baso # (Auto) 0.0 Abs Immat Gran (auto) 0.03 Absolute Neuts (auto) 4.6 Absolute Nucleated RBC 0.000 Nucleated RBC % 0.0 Sodium 140 Potassium 3.7 Chloride 103 Carbon Dioxide 26 Anion Gap 11 BUN 20 Creatinine 1.20 Estim Creat Clear Calc 60 Estimated GFR 60 Glucose 96 Calcium 8.6 Total Bilirubin 0.8 AST 16 L ALT < 6 L Alkaline Phosphatase 78 Total Protein 7.0 Albumin 3.9 Discharge Plan Discharge Attending physician on discharge: Zacarias Cortez Discharging Clinician: Chapis Steel Anticipated Discharge Date/Time: 03/30/24 00:00 Patient Disposition: SNF Activity: october shower Diet: heart healthy Discharge Instructions: * Bhargav hose and abdominal binder. * Up with assistance * Ascending Aortic Aneurysm 5.1 cm (no dissection), aware to follow up outpatient with Vascular. Patient Instructions: Constipation (DC), Pain Management in Older Adults (DC) Stand Alone Forms: General Discharge Information Discharge Medications: New polyethylene glycol 3350 [Miralax] 17 gram Powder In Packet 17 g PO DAILY Qty: 30 0RF sennosides-docusate sodium [Senokot-S] 8.6-50 mg Tablet 1 tab-cap PO BID Qty: 60 0RF midodrine 5 mg tablet 5 mg PO TID Qty: 90 0RF Rx Instructions: do not give last dose of day after 6PM or within 4 hrs of bedtime Continued acetaminophen [Tylenol] 325 mg tablet 650 mg PO TID loperamide 2 mg capsule 2 mg PO PRN PRN (Reason: Loose Stool) hydrocortisone [Preparation H Hydrocortisone] 1 % cream 1 applic topical TID PRN (Reason: Hemorrhoids) ergocalciferol (vitamin D2) [Vitamin D2] 1,250 mcg (50,000 unit) capsule 50,000 unit PO WEEKLY Rx Instructions: carbidopa-levodopa 25-100 mg tablet 3 tablet PO HS Rx Instructions: at bedtime Saccharomyces boulardii [Probiotic (S.boulardii)] 250 mg capsule 250 mg PO DAILY melatonin 10 mg capsule 10 mg PO HS baclofen 5 mg tablet 5 mg PO TID PRN (Reason: Cramps) tramadol 50 mg tablet 50 mg PO Q8H PRN (Reason: Pain) Qty: 20 0RF donepezil 10 mg tablet 10 mg PO DAILY carbidopa-levodopa 25-100 mg tablet 2.5 tablet PO TID Discontinued polyethylene glycol 3350 [Miralax] 17 gram Powder In Packet 17 g PO DAILY PRN (Reason: Constipation) Date of admission: 03/25/24 16:11 Primary Care Provider: VasylMartha Admitting Provider: Tommy Kuo Attending physician on admission: Tommy Kuo Condition: Stable Hospitalist MIPS Heart Failure (Exclusion) Patient has history of Heart Transplant or Left Ventricular Assistive Device?: No IF YES, STOP HERE Heart Failure (Qualifier) Patient has current or prior documentation of LVEF less than or equal to 40%, or mod/servere depressed LVSF?: No IF NO, STOP HERE
== END 2024-03-30 13:20 | DRG 56 ==
LOC: ANHED 11:31 → ANH3MEDSUR 14:34
PROVIDERS: Nurse Practitioner Acute Care; Physician Assistant; Admitting Provider Internal Medicine; Emergency Provider Emergency Medicine; PCP Nurse Practitioner; Visit Provider Nurse Practitioner Family
DX: G90.3 Multi-system degeneration of the autonomic nervous system (principal); J18.9 Pneumonia, unspecified organism; N39.0 Urinary tract infection, site not specified; G20.A1 Parkinson's disease without dyskinesia, without mention of fluctuations; F02.80 Dementia in other diseases classified elsewhere, unspecified severity, without behavioral disturbance, psychotic disturbance, mood disturbance, and anxiety; R40.4 Transient alteration of awareness; I71.21 Aneurysm of the ascending aorta, without rupture; G47.33 Obstructive sleep apnea (adult) (pediatric); M79.604 Pain in right leg; K56.41 Fecal impaction; E86.0 Dehydration; N28.9 Disorder of kidney and ureter, unspecified; Z20.822 Contact with and (suspected) exposure to COVID-19; Z66 Do not resuscitate; Z99.3 Dependence on wheelchair; Z87.891 Personal history of nicotine dependence
CPT/HCPCS: 36415; 70450; 71260; 73610; 74018; 74177; 80048; 80053; 81001; 82533; 83735; 84443; 85025; 85027; 85610; 85730; 87637; 92610; 93306; 93880; 96372; 97110; 97116; 97161; 97167; 97530; 99285; A9270; G0378; J1650; J7040; J7120; Q9967

== ENCOUNTER 2024-04-10 09:55 | Emergency (ER) | payer MEDICARE, SELFPAY ==
[2024-04-10 09:55] VITALS: BP 129/75; PULSE 54; RESP 14; TEMP 36.6; O2SAT 100
[2024-04-10 10:33] LABS: Basophils Absolute Auto 0.1 K/mm3 (0.0-0.1); Basophils Percent Auto 0.7 % (0.2-1.2); Eosinophils Absolute Auto 0.1 K/mm3 (0-0.3); Eosinophils Percent Auto 0.7 % (0-4.4); Hematocrit 35.7 % (42.0-52.0); Hemoglobin 11.9 g/dL (14.0-18.0); Immature Granulocyte Absolute 0.04 K/mm3 (0.00-0.031); Immature Granulocyte Percent A 0.6 % (0-0.5); Lymphocytes Absolute Auto 0.81 K/mm3 (0.9-3.2); Lymphocytes Percent Auto 12.1 % (18.3-44.2); Mean Corpuscular HGB Conc 33.3 g/dl (32-36); Mean Corpuscular Hemoglobin 31.4 pg (26-34); Mean Corpuscular Volume 94.2 fl (80-100); Monocytes Absolute Auto 0.6 K/mm3 (0.1-0.6); Monocytes Percent Auto 8.2 % (2.6-8.5); Neutrophils Absolute Auto 5.2 K/mm3 (1.3-6.7); Neutrophils Percent Auto 77.7 % (45.5-73.1); Platelet Count Result 183 k/mm3 (150-375); Red Blood Count 3.79 M/mm3 (4.6-6.20); Red Cell Distribution Width 12.6 % (11.5-14.5); White Blood Count 6.7 K/mm3 (4.5-10.0)
[2024-04-10 10:43] LABS: Anion Gap 7 mmol/L (4-12); Blood Urea Nitrogen 21 mg/dL (9-20); Calcium 8.9 mg/dL (8.4-10.2); Carbon Dioxide 27 mmol/L (22-30); Chloride 105 mmol/L (98-107); Estimated CRCL calculation 60 ml/min; Estimated Glomerular Filt Rate 60; Glucose 103 mg/dL (65-110); Potassium 4.4 mmol/L (3.4-5.0); Sodium 139 mmol/L (137-145)
[2024-04-10 11:00] VITALS: BP 147/68; PULSE 54; RESP 18; O2SAT 99
[2024-04-10 11:30] VITALS: BP 160/89; PULSE 58; RESP 14; O2SAT 99
--- NOTE | 2024-04-10 17:42 | ED_ITS ---
HPI - General Adult General Chief complaint: Unspecified Stated complaint: muscle spasms, stroke like symptoms Time Seen by Provider: 04/10/24 10:08 History of Present Illness HPI narrative: Patient with history of Parkinson's full often has muscle twitches presents here with muscle spasms, he is denying any complaints, he has no new numbness or weakness or tingling anywhere. He is not sure why he is here. Related Data Home Medications Medication Instructions Recorded Confirmed carbidopa 25 mg-levodopa 100 mg 2.5 tablet PO TID 10/12/22 04/03/24 tablet donepezil 10 mg tablet 10 mg PO DAILY 10/12/22 04/03/24 Saccharomyces boulardii 250 mg 250 mg PO DAILY 03/24/24 04/03/24 capsule (Probiotic (S.boulardii)) acetaminophen 325 mg tablet 650 mg PO TID 03/24/24 04/03/24 (Tylenol) baclofen 5 mg tablet 5 mg PO TID PRN Cramps 03/24/24 04/03/24 carbidopa 25 mg-levodopa 100 mg 3 tablet PO HS 03/24/24 04/03/24 tablet ergocalciferol (vitamin D2) 1,250 50,000 unit PO WEEKLY 03/24/24 04/03/24 mcg (50,000 unit) capsule (Vitamin D2) hydrocortisone 1 % topical cream 1 applic topical TID PRN 03/24/24 04/03/24 (Preparation H Hydrocortisone) Hemorrhoids loperamide 2 mg capsule 2 mg PO PRN PRN Loose Stool 03/24/24 04/03/24 melatonin 10 mg capsule 10 mg PO HS 03/24/24 04/03/24 Allergies Allergy/AdvReac Type Severity Reaction Status Date / Time No Known Allergies Allergy Verified 03/24/24 15:48 Review of Systems Review of Systems: All systems reviewed & are unremarkable except as noted in HPI and below PMFSH Past Medical History Medical History (Updated 04/10/24 @ 10:51 by Agnieszka Agustin MD) Anxiety Dementia in Parkinson's disease Obstructive sleep apnea on CPAP Parkinsons disease Surgical History Surgical History (Updated 03/24/24 @ 22:49 by Leyla Carlton PA-C) History of open reduction and internal fixation (ORIF) procedure repair left wrist fracture Family History Family History Unknown No problems noted. Mother Lung cancer Sibling Breast cancer Social History Social History (Updated 03/24/24 @ 22:50 by Leyla Carlton PA-C) Social History: Healthcare power of personal injury attorney: Janene Shankar, spouse. Code status: Do not resuscitate. Smoking status: Former smoker Smoking end date: 03/24/74 Alcohol intake: never Drinks per week: 2 Substance use: never Additional living arrangements comments: Memory care at [facility] in [place]. 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 Spiritual care concerns: No Exam Narrative: EXAMINATION OF ORGAN SYSTEMS/BODY AREAS: Constitutional: Vital signs per nursing GENERAL:[No acute distress, non-toxic appearing.] HEAD: Normal with no signs of head trauma. EYES: EOMI, conjunctiva normal ENT: Hearing grossly intact LUNGS: Nonlabored breathing. HEART: [Regular rate and rhythm] ABD: [Soft], [nontender to palpation] EXT: No deformity SKIN: [No rashes or lesions.] NEURO: [Alert, occasional muscle spasms, essentially at baseline.] PSYCH: Normal affect Course Vital Signs Vital signs: Vital Signs Temperature 97.8 F 04/10/24 09:55 Pulse Rate 54 L 04/10/24 09:55 Respiratory Rate 14 04/10/24 09:55 Blood Pressure 129/75 04/10/24 09:55 Pulse Oximetry 100 04/10/24 09:55 Temperature 97.8 F 04/10/24 09:55 Pulse Rate 58 L 04/10/24 11:30 Respiratory Rate 14 04/10/24 11:30 Blood Pressure 160/89 H 04/10/24 11:30 Pulse Oximetry 99 04/10/24 11:30 Medical Decision Making [facility] Narrative Medical decision making narrative: Patient with history of Parkinson's presents here with potential muscle spasms, he is able to move upper and lower extremities, I did view prior admission records and it does seem that he has had these tremors on his last H&P, I will therefore just obtain basic labs which are thankfully normal for him, I do feel he can go back and patient agreeable to this plan. Return precautions provided Vital Signs Vital Signs: Vital Signs Temperature 97.8 F 04/10/24 09:55 Pulse Rate 54 L 04/10/24 09:55 Respiratory Rate 14 04/10/24 09:55 Blood Pressure 129/75 04/10/24 09:55 Pulse Oximetry 100 04/10/24 09:55 Temperature 97.8 F 04/10/24 09:55 Pulse Rate 58 L 04/10/24 11:30 Respiratory Rate 14 04/10/24 11:30 Blood Pressure 160/89 H 04/10/24 11:30 Pulse Oximetry 99 04/10/24 11:30 Lab Data 04/10/24 10:28 04/10/24 10:28 Labs: Lab Results 04/10/24 Range/Units 10:28 WBC 6.7 (4.5-10.0) K/mm3 RBC 3.79 L (4.6-6.20) M/mm3 Hgb 11.9 L (14.0-18.0) g/dL Hct 35.7 L (42.0-52.0) % MCV 94.2 (80-100) fl MCH 31.4 (26-34) pg MCHC 33.3 (32-36) g/dl RDW 12.6 (11.5-14.5) % Plt Count 183 (150-375) k/mm3 MPV 10.0 (7.4-10.4) fl Immature Gran % (Auto) 0.6 H (0-0.5) % Neut % (Auto) 77.7 H (45.5-73.1) % Lymph % (Auto) 12.1 L (18.3-44.2) % [place] % (Auto) 8.2 (2.6-8.5) % Eos % (Auto) 0.7 (0-4.4) % Baso % (Auto) 0.7 (0.2-1.2) % Lymph # (Auto) 0.81 L (0.9-3.2) K/mm3 [place] # (Auto) 0.6 (0.1-0.6) K/mm3 Eos # (Auto) 0.1 (0-0.3) K/mm3 Baso # (Auto) 0.1 (0.0-0.1) K/mm3 Abs Immat Gran (auto) 0.04 H (0.00-0.031) K/mm3 Absolute Neuts (auto) 5.2 (1.3-6.7) K/mm3 Absolute Nucleated RBC 0.000 (0.0-0.012) K/mm3 Nucleated RBC % 0.0 (0.0-0.2) % Sodium 139 (137-145) mmol/L Potassium 4.4 (3.4-5.0) mmol/L Chloride 105 (98-107) mmol/L Carbon Dioxide 27 (22-30) mmol/L Anion Gap 7 (4-12) mmol/L BUN 21 H (9-20) mg/dL Creatinine 1.20 (0.7-1.3) mg/dL Estim Creat Clear Calc 60 ml/min Estimated GFR 60 (59 - ) Glucose 103 (65-110) mg/dL Calcium 8.9 (8.4-10.2) mg/dL Discharge Plan Discharge Clinical Impression: Parkinsons disease, Muscle spasm Patient Disposition: Home, Self-Care Condition: Stable Instructions: Muscle Spasm (ED) Additional Instructions: Please follow up with your doctor; you can always return for any further issues. Prescriptions: No Action acetaminophen [Tylenol] 325 mg tablet 650 mg PO TID loperamide 2 mg capsule 2 mg PO PRN PRN (Reason: Loose Stool) hydrocortisone [Preparation H Hydrocortisone] 1 % cream 1 applic topical TID PRN (Reason: Hemorrhoids) ergocalciferol (vitamin D2) [Vitamin D2] 1,250 mcg (50,000 unit) capsule 50,000 unit PO WEEKLY Rx Instructions: carbidopa-levodopa 25-100 mg tablet 3 tablet PO HS Rx Instructions: at bedtime Saccharomyces boulardii [Probiotic (S.boulardii)] 250 mg capsule 250 mg PO DAILY melatonin 10 mg capsule 10 mg PO HS baclofen 5 mg tablet 5 mg PO TID PRN (Reason: Cramps) polyethylene glycol 3350 [Miralax] 17 gram Powder In Packet 17 g PO DAILY Qty: 30 0RF sennosides-docusate sodium [Senokot-S] 8.6-50 mg Tablet 1 tab-cap PO BID Qty: 60 0RF midodrine 5 mg tablet 5 mg PO TID Qty: 90 0RF Rx Instructions: do not give last dose of day after 6PM or within 4 hrs of bedtime tramadol 50 mg tablet 50 mg PO Q8H PRN (Reason: Pain) Qty: 20 0RF donepezil 10 mg tablet 10 mg PO DAILY carbidopa-levodopa 25-100 mg tablet 2.5 tablet PO TID Follow-up/Referrals: Krissy,PAULA Thomas [Primary Care Provider] -
== END 2024-04-10 11:45 | disposition home or self-care (01) ==
PROVIDERS: Emergency Provider Emergency Medicine; PCP Nurse Practitioner
DX: M62.838 Other muscle spasm (principal); G20.A1 Parkinson's disease without dyskinesia, without mention of fluctuations; F02.80 Dementia in other diseases classified elsewhere, unspecified severity, without behavioral disturbance, psychotic disturbance, mood disturbance, and anxiety; G47.33 Obstructive sleep apnea (adult) (pediatric); Z87.891 Personal history of nicotine dependence; Z79.899 Other long term (current) drug therapy
CPT/HCPCS: 36415; 80048; 85025; 99283

== ENCOUNTER 2024-04-22 22:23 | Emergency (ER) | payer MEDICARE, SELFPAY ==
--- NOTE | ~2024-04-22 | XR_ITS ---
EXAMINATION: XR knee RT min 4V DATE: 04/22/2024 22:47 INDICATION: Fall. TECHNIQUE: 4 views of right knee were obtained. COMPARISON: None. FINDINGS: Alignment is normal. No fracture. There is mild tricompartmental osteoarthritis. No knee anastasiia int effusion. IMPRESSION: 1. Mild right knee osteoarthritis. Reviewed, dictated and finalized at location A. TREAD OPERATOR
[2024-04-22 22:24] VITALS: BP 160/101; PULSE 79; RESP 20; TEMP 36.4; O2SAT 99
--- NOTE | 2024-04-22 23:02 | ED.FALL ---
HPI - Fall General Chief Complaint: Fall Stated Complaint: Fall unwitnessed x 2 R knee pain Time Seen by Provider: 04/22/24 23:00 History of Present Illness HPI Narrative: Patient is a 68-year-old male who [facility] complaining of right knee pain. Patient fell twice today and started complaining of right knee pain after the 2nd fall. Patient does have a history of dementia which is limiting the history of present illness and review of systems. EMS reports that this was a witnessed fall and patient did not hit his head. No additional symptoms or concerns at this time. Related Data Home Medications Medication Instructions Recorded Confirmed carbidopa 25 mg-levodopa 100 mg 2.5 tablet PO TID 10/12/22 04/17/24 tablet donepezil 10 mg tablet 10 mg PO DAILY 10/12/22 04/17/24 Saccharomyces boulardii 250 mg 250 mg PO DAILY 03/24/24 04/17/24 capsule (Probiotic (S.boulardii)) acetaminophen 325 mg tablet 650 mg PO TID 03/24/24 04/17/24 (Tylenol) baclofen 5 mg tablet 5 mg PO TID PRN Cramps 03/24/24 04/17/24 carbidopa 25 mg-levodopa 100 mg 3 tablet PO HS 03/24/24 04/17/24 tablet ergocalciferol (vitamin D2) 1,250 50,000 unit PO WEEKLY 03/24/24 04/17/24 mcg (50,000 unit) capsule (Vitamin D2) hydrocortisone 1 % topical cream 1 applic topical TID PRN 03/24/24 04/17/24 (Preparation H Hydrocortisone) Hemorrhoids loperamide 2 mg capsule 2 mg PO PRN PRN Loose Stool 03/24/24 04/17/24 melatonin 10 mg capsule 10 mg PO HS 03/24/24 04/17/24 Allergies Allergy/AdvReac Type Severity Reaction Status Date / Time No Known Allergies Allergy Verified 03/24/24 15:48 Review of Systems Review of Systems: Unable to obtain a full review of systems secondary to patient's dementia. PMFSH Past Medical History Medical History Anxiety Dementia in Parkinson's disease Obstructive sleep apnea on CPAP Parkinsons disease Surgical History Surgical History History of open reduction and internal fixation (ORIF) procedure repair left wrist fracture Family History Family History Unknown No problems noted. Mother Lung cancer Sibling Breast cancer Social History Social History Social History: Healthcare power of criminal defense attorney: Janene Shankar, spouse. Code status: Do not resuscitate. Smoking status: Former smoker Smoking end date: 03/24/74 Alcohol intake: never Drinks per week: 2 Substance use: never Additional living arrangements comments: Memory care at [facility] in [place]. 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 Spiritual care concerns: No Exam Narrative: General: Awake, afebrile, in no acute distress. HEENT: PERRL, no rhinorrhea, no post nasal drip, oropharynx clear. Neck: Trachea midline, no JVD, no lymphadenopathy. Cardiovascular: Regular rate and rhythm, no murmurs, rubs or gallops, no peripheral edema. Respiratory: Clear to auscultation bilaterally, no tachypnea, no wheezing, no rhonchi, no rubs, no respiratory distress. Abdomen: Soft, nontender, nondistended, no rebound, no guarding, no peritoneal signs. Musculoskeletal: No joint swelling or deformity, normal muscle tone, intact full range of motion at the right knee joint, patient has intact bilateral hip flexions knee extensions. Intermittent and muscle spasm/jerking which is baseline for patient. Skin: No rashes or petechia, no signs of infection. Neurological: Alert, at baseline with a history of dementia. Moving all 4 extremities spontaneously. No focal deficits appreciated at this time. Course Vital Signs Vital signs: Vital Signs Temperature 97.6 F 04/22/24 22:24 Pulse Rate 79 04/22/24 22:24 Respiratory Rate 20 04/22/24 22:24 Blood Pressure 160/101 H 04/22/24 22:24 Pulse Oximetry 99 04/22/24 22:24 Oxygen Delivery Room Air 04/22/24 22:24 Temperature 97.6 F 04/22/24 22:24 Pulse Rate 78 11/19/24 23:18 Respiratory Rate 17 04/22/24 23:18 Blood Pressure 135/81 04/22/24 23:18 Pulse Oximetry 97 04/22/24 23:18 Oxygen Delivery Room Air 04/22/24 22:24 MDM - Fall MDM Narrative Medical decision making narrative: The patient was evaluated by myself in the emergency department. History is obtained from EMS who is an independent historian and physical exam was performed. External medical records were reviewed at this time. Patient was administered 15 mg of IM Toradol for pain. Imaging studies obtained included right knee x-ray which was independently interpreted by me revealing mild osteoarthritis otherwise no acute process, which is pending final radiology interpretation. Differential diagnosis considerations include fracture, dislocation, ligamentous/meniscal tear. Comorbidities impacting this visit include history of Parkinson's disease, dementia. I have evaluated and discussed social determinants of health with the patient that could potentially impact subsequent diagnosis and treatment plans. On repeat assessment of the patient, reevaluation revealed that the patient is doing well and is in no acute distress. Patient symptoms have improved since [he/she] arrived to our emergency department. Repeat vital signs were all reviewed and noted to be stable. Patient will follow up with his PCP in 3-5 days. Patient was provided with strict return precautions and instructed to return to the emergency department if any new or worsening symptoms develop. The patient was discharged in stable condition. Discharge Plan Discharge Clinical Impression: Fall from ground level, Internal derangement of knee Patient Disposition: SNF Condition: Improved Instructions: Fall Prevention for Older Adults (ED), Knee Pain (ED) Additional Instructions: Please follow-up with the orthopedic doctor provided to you were in your right knee pain you may need an MRI of the right knee for further evaluation. Were performed today and did not reveal any fractures or any acute process. Return to the ED if any new or worsening symptoms develop. You may take ibuprofen and/or Tylenol as needed for pain. Prescriptions: No Action acetaminophen [Tylenol] 325 mg tablet 650 mg PO TID loperamide 2 mg capsule 2 mg PO PRN PRN (Reason: Loose Stool) hydrocortisone [Preparation H Hydrocortisone] 1 % cream 1 applic topical TID PRN (Reason: Hemorrhoids) ergocalciferol (vitamin D2) [Vitamin D2] 1,250 mcg (50,000 unit) capsule 50,000 unit PO WEEKLY Rx Instructions: carbidopa-levodopa 25-100 mg tablet 3 tablet PO HS Rx Instructions: at bedtime Saccharomyces boulardii [Probiotic (S.boulardii)] 250 mg capsule 250 mg PO DAILY melatonin 10 mg capsule 10 mg PO HS baclofen 5 mg tablet 5 mg PO TID PRN (Reason: Cramps) polyethylene glycol 3350 [Miralax] 17 gram Powder In Packet 17 g PO DAILY Qty: 30 0RF sennosides-docusate sodium [Senokot-S] 8.6-50 mg Tablet 1 tab-cap PO BID Qty: 60 0RF midodrine 5 mg tablet 5 mg PO TID Qty: 90 0RF Rx Instructions: do not give last dose of day after 6PM or within 4 hrs of bedtime tramadol 50 mg tablet 50 mg PO Q8H PRN (Reason: Pain) Qty: 20 0RF donepezil 10 mg tablet 10 mg PO DAILY carbidopa-levodopa 25-100 mg tablet 2.5 tablet PO TID Follow-up/Referrals: Damir Beal MD [Physician] - 3 Days Krissy,PAULA Thomas [Primary Care Provider] - Time of Disposition: 23:13
[2024-04-22 23:18] VITALS: BP 135/81; PULSE 78; RESP 17; O2SAT 97
[2024-04-22] MEDS: KETOROLAC 15 MG/ML VIAL (*BKC) IM (23:32)
[2024-04-22 23:56] VITALS: BP 136/92; PULSE 78; RESP 15; O2SAT 97
== END 2024-04-22 23:58 ==
PROVIDERS: Emergency Provider Emergency Medicine; PCP Nurse Practitioner
DX: M23.91 Unspecified internal derangement of right knee (principal); S89.91XA Unspecified injury of right lower leg, initial encounter; G20.A1 Parkinson's disease without dyskinesia, without mention of fluctuations; F02.80 Dementia in other diseases classified elsewhere, unspecified severity, without behavioral disturbance, psychotic disturbance, mood disturbance, and anxiety; G47.33 Obstructive sleep apnea (adult) (pediatric); Z66 Do not resuscitate; W19.XXXA Unspecified fall, initial encounter
CPT/HCPCS: 73564; 96372; 99283; J1885

== ENCOUNTER 2024-04-23 20:34 | Emergency (ER) | payer MEDICARE, SELFPAY ==
--- NOTE | ~2024-04-23 | CT_ITS ---
EXAMINATION: CT brain wo con DATE: 04/23/2024 21:51 INDICATION: Altered mental status. TECHNIQUE: Computed tomography (CT) of the head was performed without intravenous contrast. The mA wa s adjusted according to patient size. Iterative reconstruction technique was employed. The dose-lengt h product was 1513.33 mGy-cm. COMPARISON: Head CT 03/24/2024 FINDINGS: There is no intracranial hemorrhage, acute infarction, or abnormal intracranial mass lesion . The ventricles are normal in size. There is mild mucosal thickening in the paranasal sinuses. The o rbits are normal. The mastoid air cells are normal. IMPRESSION: 1. Normal brain. Reviewed, dictated and finalized at location A. ING AND FOLDING MACHINE OPERATOR IMPRESSION: 1. Normal brain.
[2024-04-23 20:45] VITALS: BP 142/78; PULSE 98; RESP 18; TEMP 37.7; O2SAT 97
[2024-04-23 20:48] VITALS: O2SAT 99
[2024-04-23 20:52] VITALS: PULSE 97
--- NOTE | 2024-04-23 20:54 | ECG_ITS ---
Test Date: 2024-04-23 21:36:37 Measurements Intervals [place] [facility] Rate: 96 P: -33 PA: 153 QRS: -20 QRSD: 110 T: 64 QT: 352 QTc: 447 Interpretive Statements SINUS RHYTHM DELAYED PRECORDIAL R/S TRANSITION LEFT VENTRICULAR HYPERTROPHY WITH ST-T CHANGE BORDERLINE ST ABNORMALITY- ANTEROLATERAL LEADS BASELINE ARTIFACT- I, II, III, AVR, AVL, AVF, V1-V6 BORDERLINE ECG No previous ECG available for comparison Electronically Signed On 04-24-2024 05:21:28 SCIENCE AND OPERATIONS OFFICER by Ricardo Rosa D.O.
[2024-04-23 21:44] LABS: Basophils Absolute Auto 0.1 K/mm3 (0.0-0.1); Basophils Percent Auto 0.6 % (0.2-1.2); Eosinophils Percent Auto 0.3 % (0-4.4); Hematocrit 38.8 % (42.0-52.0); Hemoglobin 13.3 g/dL (14.0-18.0); Immature Granulocyte Absolute 0.06 K/mm3 (0.00-0.031); Immature Granulocyte Percent A 0.6 % (0-0.5); Lymphocytes Absolute Auto 0.47 K/mm3 (0.9-3.2); Lymphocytes Percent Auto 4.9 % (18.3-44.2); Mean Corpuscular HGB Conc 34.3 g/dl (32-36); Mean Corpuscular Hemoglobin 32.1 pg (26-34); Mean Corpuscular Volume 93.7 fl (80-100); Mean Platelet Volume 10.7 fl (7.4-10.4); Monocytes Absolute Auto 1.1 K/mm3 (0.1-0.6); Monocytes Percent Auto 11.1 % (2.6-8.5); Neutrophils Absolute Auto 7.9 K/mm3 (1.3-6.7); Neutrophils Percent Auto 82.5 % (45.5-73.1); Platelet Count Result 182 k/mm3 (150-375); Red Blood Count 4.14 M/mm3 (4.6-6.20); Red Cell Distribution Width 12.9 % (11.5-14.5); White Blood Count 9.6 K/mm3 (4.5-10.0)
[2024-04-23 21:56] LABS: Alanine Aminotransferase 90 U/L (6-50); Albumin Level 4.7 g/dL (3.5-5.1); Alkaline Phosphatase 105 U/L (38-126); Anion Gap 11 mmol/L (4-12); Aspartate Amino Transferase 49 U/L (17-59); Bilirubin,Total 2.2 mg/dL (0.2-1.3); Blood Urea Nitrogen 30 mg/dL (9-20); Calcium 9.7 mg/dL (8.4-10.2); Carbon Dioxide 27 mmol/L (22-30); Chloride 101 mmol/L (98-107); Estimated CRCL calculation 57 ml/min; Estimated Glomerular Filt Rate 60; Glucose 131 mg/dL (65-110); Partial Thromboplastin Time 37.7 Seconds (22.3-36.8); Potassium 3.9 mmol/L (3.4-5.0); Sodium 139 mmol/L (137-145)
--- NOTE | 2024-04-23 21:56 | ED.AMS ---
HPI - Altered Mental Status General Chief Complaint: Altered Mental Status Stated Complaint: altered mental status Time Seen by Provider: 04/23/24 20:57 History of Present Illness HPI narrative: Patient is a 68-year-old male who presents to the emergency department this evening from his extended care facility due to concern for altered mental status. Patient does have a history of Parkinson's dementia and is is reportedly normally alert and oriented times 3-4, however, EMS states that the staff did not provide a clear description of what the patient's baseline orientation is. Patient was seen our facility recently status post fall for knee pain. Currently oriented to self only. The remainder of the history present illness and review of systems limited secondary to patient's current altered mental status. Related Data Home Medications Medication Instructions Recorded Confirmed carbidopa 25 mg-levodopa 100 mg 2.5 tablet PO TID 10/12/22 04/17/24 tablet donepezil 10 mg tablet 10 mg PO DAILY 10/12/22 04/17/24 Saccharomyces boulardii 250 mg 250 mg PO DAILY 03/24/24 04/17/24 capsule (Probiotic (S.boulardii)) acetaminophen 325 mg tablet 650 mg PO TID 03/24/24 04/17/24 (Tylenol) baclofen 5 mg tablet 5 mg PO TID PRN Cramps 03/24/24 04/17/24 carbidopa 25 mg-levodopa 100 mg 3 tablet PO HS 03/24/24 04/17/24 tablet ergocalciferol (vitamin D2) 1,250 50,000 unit PO WEEKLY 03/24/24 04/17/24 mcg (50,000 unit) capsule (Vitamin D2) hydrocortisone 1 % topical cream 1 applic topical TID PRN 03/24/24 04/17/24 (Preparation H Hydrocortisone) Hemorrhoids loperamide 2 mg capsule 2 mg PO PRN PRN Loose Stool 03/24/24 04/17/24 melatonin 10 mg capsule 10 mg PO HS 03/24/24 04/17/24 Allergies Allergy/AdvReac Type Severity Reaction Status Date / Time No Known Allergies Allergy Verified 03/24/24 15:48 Review of Systems Review of Systems: All systems are reviewed and are negative unless stated otherwise in the HPI. [facility] Past Medical History Medical History Anxiety Dementia in Parkinson's disease Obstructive sleep apnea on CPAP Parkinsons disease Surgical History Surgical History History of open reduction and internal fixation (ORIF) procedure repair left wrist fracture Family History Family History Unknown No problems noted. Mother Lung cancer Sibling Breast cancer Social History Social History Social History: Healthcare power of commercial attorney: Janene Shankar, spouse. Code status: Do not resuscitate. Smoking status: Former smoker Smoking end date: 03/24/74 Alcohol intake: never Drinks per week: 2 Substance use: never Additional living arrangements comments: Memory care at [facility] in [place]. 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 Spiritual care concerns: No Exam Narrative: General: Awake, afebrile, in no acute distress. HEENT: PERRL, no rhinorrhea, no post nasal drip, oropharynx clear. Neck: Trachea midline, no JVD, no lymphadenopathy. Cardiovascular: Regular rate and rhythm, no murmurs, rubs or gallops, no peripheral edema. Respiratory: Clear to auscultation bilaterally, no tachypnea, no wheezing, no rhonchi, no rubs, no respiratory distress. Abdomen: Soft, nontender, nondistended, no rebound, no guarding, no peritoneal signs. Musculoskeletal: No joint swelling or deformity, normal muscle tone. Skin: No rashes or petechia, no signs of infection. Psychiatric: Alert and oriented, normal behavior and judgment for situation. Neurological: Awake, alert and oriented to person, moving all 4 extremities spontaneously, no focal deficits appreciated at this time, speech is clear. Course Vital Signs Vital signs: Vital Signs Temperature 99.8 F H 04/23/24 20:45 Pulse Rate 98 04/23/24 20:45 Respiratory Rate 18 04/23/24 20:45 Blood Pressure 142/78 H 04/23/24 20:45 Pulse Oximetry 97 04/23/24 20:45 Oxygen Delivery Room Air 04/23/24 20:45 Temperature 99.8 F H 04/23/24 20:45 Pulse Rate 95 04/23/24 22:28 Respiratory Rate 17 04/23/24 22:28 Blood Pressure 164/98 H 04/23/24 22:28 Pulse Oximetry 98 04/23/24 22:28 Oxygen Delivery Room Air 04/23/24 20:48 MDM - Altered Mental Status MDM Narrative Medical decision making narrative: The patient was evaluated by myself in the emergency department. History is obtained from patient who is an independent historian and physical exam was performed. External medical records were reviewed at this time. IV was established and pertinent tests were ordered. EKG was obtained which revealed sinus rhythm rate of 96 beats per minute. No ST changes, T wave inversions or evidence of acute ischemia. EKG was independently interpreted by me and is currently pending official cardiology read. Laboratory results obtained revealing no acute process. Urinalysis revealed urinary tract infection. Patient was administered 2 g of IV Rocephin at this time. Viral swabs negative. Imaging studies obtained included CT brain without IV contrast which was independently interpreted by me revealing no acute intracranial process, which is pending final radiology interpretation. Differential diagnosis considerations include infectious process such as pneumonia, urinary tract infection, dehydration, electrolyte derangements. Comorbidities impacting this visit include history of Parkinson's disease/dementia. I have evaluated and discussed social determinants of health with the patient that could potentially impact subsequent diagnosis and treatment plans. On repeat assessment of the patient, reevaluation revealed that the patient is doing well and is in no acute distress. Patient symptoms have remained stable since he arrived to our emergency department. Repeat vital signs were all reviewed and noted to be stable. Patient will follow up with his PCP in 3-5 days. A script for cephalexin was sent to patient's pharmacy to take as prescribed for his urinary tract infection. Patient was provided with strict return precautions and instructed to return to the emergency department if any new or worsening symptoms develop. The patient was discharged in stable condition. Lab Data 04/23/24 21:33 04/23/24 21:33 Labs: Lab Results 04/23/24 04/23/24 Range/Units 21:33 22:50 WBC 9.6 (4.5-10.0) K/mm3 RBC 4.14 L (4.6-6.20) M/mm3 Hgb 13.3 L (14.0-18.0) g/dL Hct 38.8 L (42.0-52.0) % MCV 93.7 (80-100) fl MCH 32.1 (26-34) pg MCHC 34.3 (32-36) g/dl RDW 12.9 (11.5-14.5) % Plt Count 182 (150-375) k/mm3 MPV 10.7 H (7.4-10.4) fl Immature Gran % (Auto) 0.6 H (0-0.5) % Neut % (Auto) 82.5 H (45.5-73.1) % Lymph % (Auto) 4.9 L (18.3-44.2) % [place] % (Auto) 11.1 H (2.6-8.5) % Eos % (Auto) 0.3 (0-4.4) % Baso % (Auto) 0.6 (0.2-1.2) % Lymph # (Auto) 0.47 L (0.9-3.2) K/mm3 [place] # (Auto) 1.1 H (0.1-0.6) K/mm3 Eos # (Auto) 0.0 (0-0.3) K/mm3 Baso # (Auto) 0.1 (0.0-0.1) K/mm3 Abs Immat Gran (auto) 0.06 H (0.00-0.031) K/mm3 Absolute Neuts (auto) 7.9 H (1.3-6.7) K/mm3 Absolute Nucleated RBC 0.000 (0.0-0.012) K/mm3 Nucleated RBC % 0.0 (0.0-0.2) % PT 14.0 (11.1-14.7) Seconds INR 1.0 APTT 37.7 H (22.3-36.8) Seconds Sodium 139 (137-145) mmol/L Potassium 3.9 (3.4-5.0) mmol/L Chloride 101 (98-107) mmol/L Carbon Dioxide 27 (22-30) mmol/L Anion Gap 11 (4-12) mmol/L BUN 30 H (9-20) mg/dL Creatinine 1.20 (0.7-1.3) mg/dL Estim Creat Clear Calc 57 ml/min Estimated GFR 60 (59 - ) Glucose 131 H (65-110) mg/dL Calcium 9.7 (8.4-10.2) mg/dL Total Bilirubin 2.2 H (0.2-1.3) mg/dL AST 49 (17-59) U/L ALT 90 H (6-50) U/L Alkaline Phosphatase 105 (38-126) U/L Total Protein 8.0 (6.3-8.2) g/dL Albumin 4.7 (3.5-5.1) g/dL Urine Color Dark yellow (Yellow) Urine Appearance Clear (Clear) Urine pH 5.0 (5.0-9.0) Ur Specific [place] 1.034 (1.001-1.035) Urine Protein 2+ H (Negative) mg/dL Urine Glucose (UA) Negative (Negative) mg/dL Urine Ketones 1+ H (Negative) mg/dL Ur Blood (Man) 1+ H (Negative) Urine Nitrate Positive H (Negative) Urine Bilirubin 2+ H (Negative) Urine Urobilinogen 2.0 H (<2.0) mg/dL Add Ur Microanalysis Reviewed Leukocyte Esterase Rfl Trace H (Negative) KATH/UL Urine RBC 11-20 H (0-2) /hpf Urine WBC 0-5 (0-3) /hpf Ur Squamous Epith Cells None seen (Few) /hpf Urine Bacteria None seen /hpf Urine Casts 0-2 Influenza A (RT-PCR) Negative (Negative) Influenza B (RT-PCR) Negative (Negative) SARS-CoV-2 RNA (RT-PCR) Negative (Negative) Discharge Plan Discharge Clinical Impression: Delirium due to another medical condition, Urinary tract infection, Dehydration Patient Disposition: SNF Condition: Stable Instructions: Dehydration (DC), Urinary Tract Infection in Men (DC) Additional Instructions: Please follow-up with your family doctor within the next 3-5 days. Return to the ED if any new or worsening symptoms develop. Take the prescribed antibiotic as instructed for urinary tract infection. Prescriptions: New cephalexin 500 mg capsule 500 mg PO Q12H 7 Days Qty: 14 0RF No Action acetaminophen [Tylenol] 325 mg tablet 650 mg PO TID loperamide 2 mg capsule 2 mg PO PRN PRN (Reason: Loose Stool) hydrocortisone [Preparation H Hydrocortisone] 1 % cream 1 applic topical TID PRN (Reason: Hemorrhoids) ergocalciferol (vitamin D2) [Vitamin D2] 1,250 mcg (50,000 unit) capsule 50,000 unit PO WEEKLY Rx Instructions: carbidopa-levodopa 25-100 mg tablet 3 tablet PO HS Rx Instructions: at bedtime Saccharomyces boulardii [Probiotic (S.boulardii)] 250 mg capsule 250 mg PO DAILY melatonin 10 mg capsule 10 mg PO HS baclofen 5 mg tablet 5 mg PO TID PRN (Reason: Cramps) polyethylene glycol 3350 [Miralax] 17 gram Powder In Packet 17 g PO DAILY Qty: 30 0RF sennosides-docusate sodium [Senokot-S] 8.6-50 mg Tablet 1 tab-cap PO BID Qty: 60 0RF midodrine 5 mg tablet 5 mg PO TID Qty: 90 0RF Rx Instructions: do not give last dose of day after 6PM or within 4 hrs of bedtime tramadol 50 mg tablet 50 mg PO Q8H PRN (Reason: Pain) Qty: 20 0RF donepezil 10 mg tablet 10 mg PO DAILY carbidopa-levodopa 25-100 mg tablet 2.5 tablet PO TID Follow-up/Referrals: Krissy,PAULA Thomas [Primary Care Provider] - 3 Days Time of Disposition: 22:14
[2024-04-23 21:58] LABS: Add Urine Microscopic? YES; Appearance Urine Clear (Clear); Bacteria Urine None Seen /hpf; Bilirubin Urine 2+ (Negative); Blood Urine 1+ (Negative); Color Urine Dark Yellow (Yellow); Glucose Urine UA Negative (Negative); Ketones Urine 1+ mg/dL (Negative); Leukocyte Esterase Ur Trace LEU/UL (Negative); Need Manual Microscopic Reviewed; Nitrate Urine Positive (Negative); Non Pathogenic Casts 0-2; Protein Urine 2+ mg/dL (Negative); Specific Grav Ur 1.034 (1.001-1.035); Squamous Epithelial Cell Urine None Seen /hpf (Few); WBC Urine 0-5 /hpf (0-3)
[2024-04-23] MEDS: SODIUM CHLORIDE 0.9% IV 1,000 ML 999 ML IV CONT (22:26)
[2024-04-23] MEDS: cefTRIAXone 2 GM/NS 100 ML 2 GM/100 ML BAG IVPB (22:26)
[2024-04-23 22:28] VITALS: BP 164/98; PULSE 95; RESP 17; O2SAT 98
[2024-04-23 23:33] LABS: Influenza A QL RT-PCR Negative (Negative); Influenza B QL RT-PCR Negative (Negative); SARS-CoV-2 RNA PCR Negative (Negative)
== END 2024-04-23 23:06 ==
PROVIDERS: Emergency Provider Emergency Medicine; PCP Nurse Practitioner
DX: R41.82 Altered mental status, unspecified (principal); N39.0 Urinary tract infection, site not specified; E86.0 Dehydration; G20.A1 Parkinson's disease without dyskinesia, without mention of fluctuations; F02.80 Dementia in other diseases classified elsewhere, unspecified severity, without behavioral disturbance, psychotic disturbance, mood disturbance, and anxiety; F05 Delirium due to known physiological condition; Z20.822 Contact with and (suspected) exposure to COVID-19; G47.33 Obstructive sleep apnea (adult) (pediatric); Z66 Do not resuscitate; Z79.899 Other long term (current) drug therapy
CPT/HCPCS: 36415; 70450; 80053; 81001; 85025; 85610; 85730; 87086; 87636; 93005; 96365; 99284; J0696; J7030

== ENCOUNTER 2024-04-24 14:47 | Observation (INO) | payer MEDICARE, SELFPAY ==
--- NOTE | ~2024-04-24 | CT_ITS ---
History: Altered mental status PROCEDURE: CT head without contrast. Examination is markedly limited by significant amount of motion artifact (as the patient was unable to follow commands) COMPARISON: 04/23/2024 TECHNIQUE: Axial imaging of the head performed from the skull base to the vertex without IV contrast. Sagittal a nd coronal reformations obtained. DLP: 1362 mGy-cm FINDINGS: The ventricles are dilated. The dilatation of the ventricles is proportional to the degree of sulcal prominence, not uncommon in the senescent brain. Decreased attenuation is identified within the periventricular white matter, likely secondary to micr ovascular ischemic disease, in a patient of this age. There is no mass, mass effect or midline shift. There is no abnormal extra-axial fluid collection or intracranial hemorrhage. Visualized paranasal sinuses are clear. The mastoid air cells are well aerated. No acute displaced fractures within the overlying cranium. Impression: Age-related change, without acute intracranial hemorrhage or suspicious mass effect. Reviewed, dictated and finalized at location A. [employer] OF PROGRAMMING Impression: Age-related change, without acute intracranial hemorrhage or suspicious mass ef fect.
[2024-04-24 14:49] VITALS: BP 148/90; PULSE 81; RESP 20; TEMP 36.4; O2SAT 99
--- NOTE | 2024-04-24 15:37 | PC.NURSE ---
Pts reports pt is more restless than normal and is unable to state who she is and he is normally able to at baseline.
[2024-04-24 15:45] LABS: Basophils Absolute Auto 0.1 K/mm3 (0.0-0.1); Basophils Percent Auto 0.5 % (0.2-1.2); Eosinophils Percent Auto 0.2 % (0-4.4); Hematocrit 36.2 % (42.0-52.0); Hemoglobin 12.4 g/dL (14.0-18.0); Immature Granulocyte Absolute 0.05 K/mm3 (0.00-0.031); Immature Granulocyte Percent A 0.5 % (0-0.5); Lymphocytes Absolute Auto 0.56 K/mm3 (0.9-3.2); Lymphocytes Percent Auto 5.2 % (18.3-44.2); Mean Corpuscular HGB Conc 34.3 g/dl (32-36); Mean Corpuscular Volume 93.3 fl (80-100); Mean Platelet Volume 10.6 fl (7.4-10.4); Monocytes Absolute Auto 1.3 K/mm3 (0.1-0.6); Monocytes Percent Auto 12.3 % (2.6-8.5); Neutrophils Absolute Auto 8.8 K/mm3 (1.3-6.7); Neutrophils Percent Auto 81.3 % (45.5-73.1); Platelet Count Result 170 k/mm3 (150-375); Red Blood Count 3.88 M/mm3 (4.6-6.20); Red Cell Distribution Width 12.8 % (11.5-14.5); White Blood Count 10.8 K/mm3 (4.5-10.0)
[2024-04-24 15:57] LABS: INR 1.2; Prothrombin Time 15.3 Seconds (11.1-14.7)
[2024-04-24 15:58] LABS: Partial Thromboplastin Time 40.1 Seconds (22.3-36.8)
[2024-04-24 16:01] LABS: Alanine Aminotransferase 20 U/L (6-50); Albumin Level 4.2 g/dL (3.5-5.1); Alkaline Phosphatase 90 U/L (38-126); Anion Gap 9 mmol/L (4-12); Aspartate Amino Transferase 37 U/L (17-59); Blood Urea Nitrogen 30 mg/dL (9-20); Calcium 9.3 mg/dL (8.4-10.2); Carbon Dioxide 27 mmol/L (22-30); Chloride 103 mmol/L (98-107); Estimated CRCL calculation 55 ml/min; Estimated Glomerular Filt Rate 60; Glucose 110 mg/dL (65-110); Potassium 3.9 mmol/L (3.4-5.0); Sodium 139 mmol/L (137-145)
--- NOTE | 2024-04-24 16:14 | PC.NURSE ---
Multiple unsuccessful attempts at an EKG due to pt being restless.
[2024-04-24 18:01] LABS: Add Urine Microscopic? YES; Appearance Urine Clear (Clear); Bacteria Urine None Seen /hpf; Bilirubin Urine 2+ (Negative); Blood Urine 1+ (Negative); Color Urine Dark Yellow (Yellow); Glucose Urine UA Negative (Negative); Hyaline Casts Urine Present /lpf; Ketones Urine Trace mg/dL (Negative); Leukocyte Esterase Ur Trace LEU/UL (Negative); Mucus Urine Present /lpf; Need Manual Microscopic Reviewed; Nitrate Urine Positive (Negative); Protein Urine 2+ mg/dL (Negative); Specific Grav Ur 1.031 (1.001-1.035); Squamous Epithelial Cell Urine None Seen /hpf (Few); WBC Urine 0-5 /hpf (0-3)
--- NOTE | 2024-04-24 18:11 | ED_ITS ---
HPI - Altered Mental Status General Chief Complaint: Altered Mental Status <Marah Hernandez PA-C - Last Filed: 04/24/24 21:21> Stated Complaint: AMS, tremors <HUGO Gavin Last Filed: 04/24/24 21:21> Time Seen by Provider: 04/24/24 16:57 <HUGO Gavin Last Filed: 04/24/24 21:21> Source: patient, family and old records reviewed <Marah Hernandez PA-C - Last Filed: 04/24/24 21:21> Mode of arrival: EMS <HUGO Gavin Last Filed: 04/24/24 21:21> Limitations: dementia <HUGO Gavin Last Filed: 04/24/24 21:21> History of Present Illness HPI narrative: Patient is a 68-year-old male who presents the ED with report of altered mental status. Patient has history of dementia and Parkinson's disease. Patient's /POA at bedside assisted in providing information. Patient currently resides at [facility]. reports patient typically able to answer questions and maintain conversation, however has been increasingly altered and confused over the past 2 days. Was seen in the ED last night and diagnosed with the UTI. Given Rocephin in the ED. Discharged on Keflex. does not believe this was started today. States patient has been increasingly confused today. Was brought back for further evaluation. Patient unable to answer most questions. Denies any acute pain. <Marah Hernandez PA-C - Last Filed: 04/24/24 21:21> Related Data Home Medications: Home Medications Medication Instructions Recorded Confirmed carbidopa 25 mg-levodopa 100 mg 2.5 tablet PO TID 10/12/22 04/17/24 tablet donepezil 10 mg tablet 10 mg PO DAILY 10/12/22 04/17/24 Saccharomyces boulardii 250 mg 250 mg PO DAILY 03/24/24 04/17/24 capsule (Probiotic (S.boulardii)) acetaminophen 325 mg tablet 650 mg PO TID 03/24/24 04/17/24 (Tylenol) baclofen 5 mg tablet 5 mg PO TID PRN Cramps 03/24/24 04/17/24 carbidopa 25 mg-levodopa 100 mg 3 tablet PO HS 03/24/24 04/17/24 tablet ergocalciferol (vitamin D2) 1,250 50,000 unit PO WEEKLY 03/24/24 04/17/24 mcg (50,000 unit) capsule (Vitamin D2) hydrocortisone 1 % topical cream 1 applic topical TID PRN 03/24/24 04/17/24 (Preparation H Hydrocortisone) Hemorrhoids loperamide 2 mg capsule 2 mg PO PRN PRN Loose Stool 03/24/24 04/17/24 melatonin 10 mg capsule 10 mg PO HS 03/24/24 04/17/24 <Marah Hernandez PA-C - Last Filed: 04/24/24 21:21> Allergies/Adverse Reactions: Allergies Allergy/AdvReac Type Severity Reaction Status Date / Time No Known Allergies Allergy Verified 03/24/24 15:48 <Marah Hernandez PA-C - Last Filed: 04/24/24 21:21> Review of Systems Review of Systems: ROS unobtainable: Yes unobtainable due to mental status <Marah Hernandez PA-C - Last Filed: 04/24/24 21:21> [facility] Past Medical History Medical History: Medical History Anxiety Dementia in Parkinson's disease Obstructive sleep apnea on CPAP Parkinsons disease <Marah Hernandez PA-C - Last Filed: 04/24/24 21:21> Surgical History Surgical History: Surgical History History of open reduction and internal fixation (ORIF) procedure repair left wrist fracture <Marah Hernandez PA-C - Last Filed: 04/24/24 21:21> Family History Family History: Family History Unknown No problems noted. Mother Lung cancer Sibling Breast cancer <Marah Hernandez PA-C - Last Filed: 04/24/24 21:21> Social History Social History: Social History Social History: Healthcare power of hygiene coordinator: Janeen Shankar, spouse. Code status: Do not resuscitate. Smoking status: Former smoker Smoking end date: 03/24/74 Alcohol intake: never Drinks per week: 2 Substance use: never Additional living arrangements comments: Memory care at [facility]. 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 Spiritual care concerns: No <Marah Hernandez PA-C - Last Filed: 04/24/24 21:21> Exam Narrative: GENERAL: Chronically ill-appearing, non-toxic, in no acute distress. HEAD: Normocephalic, atraumatic. RESPIRATORY: Airway patent, respirations nonlabored. Clear to auscultation bilaterally, no rales, rhonchi, wheezing. CARDIOVASCULAR: Regular rate and rhythm without murmurs, rubs, or gallops. MUSCULOSKELETAL: Moves all extremities. No gross deformities. SKIN: Warm, dry, normal color. NEURO: Alert, answers some questions. Follows some commands. Speech somewhat garbled at times. Able to move all extremities. Intermittent jerking and spastic movements of extremities. PSYCHIATRIC: Appropriate mood and affect. Normal interaction. <Marah Hernandez PA-C - Last Filed: 04/24/24 21:21> Course CHIEF LIBRARIAN WORK WITH BLIND/PA Physician Supervision For this patient encounter, I reviewed the CHIEF LIBRARIAN WORK WITH BLIND or PA documentation, treatment plan, and medical decision making and/or I had [id number] time with this patient. I performed all aspects of the MDM as documented. <Yoana Boo MD - Last Filed: 04/24/24 21:13> Vital Signs Vital signs: Vital Signs Temperature 97.6 F 04/24/24 14:49 Pulse Rate 81 04/24/24 14:49 Respiratory Rate 20 04/24/24 14:49 Blood Pressure 148/90 H 04/24/24 14:49 Pulse Oximetry 99 04/24/24 14:49 Oxygen Delivery Room Air 04/24/24 14:49 Temperature 97.6 F 04/24/24 14:49 Pulse Rate 87 04/24/24 19:49 Respiratory Rate 16 04/24/24 19:49 Blood Pressure 158/90 H 04/24/24 19:49 Pulse Oximetry 98 04/24/24 19:49 Oxygen Delivery Room Air 04/24/24 14:49 <Marah Hernandez PA-C - Last Filed: 04/24/24 21:21> Vital Signs Temperature 97.6 F 04/24/24 14:49 Pulse Rate 81 04/24/24 14:49 Respiratory Rate 20 04/24/24 14:49 Blood Pressure 148/90 H 04/24/24 14:49 Pulse Oximetry 99 04/24/24 14:49 Oxygen Delivery Room Air 04/24/24 14:49 Temperature 97.6 F 04/24/24 14:49 Pulse Rate 87 04/24/24 19:49 Respiratory Rate 16 04/24/24 19:49 Blood Pressure 158/90 H 04/24/24 19:49 Pulse Oximetry 98 04/24/24 19:49 Oxygen Delivery Room Air 04/24/24 14:49 <Yoana Boo MD - Last Filed: 04/24/24 21:13> MDM - Altered Mental Status MDM Narrative Medical decision making narrative: Patient presented to ED with persistent altered mental status, history of dementia and Parkinson's, diagnosed with UTI yesterday. Vital signs are stable upon arrival. Patient is afebrile here. CBC with white blood cell count of 10.8, increased from yesterday. Normal H&H. Consistent with previous records. CMP is unremarkable. Stable kidney function. Mildly elevated total bilirubin, consistent with previous records. Otherwise normal LFTs. UA with positive nitrates, some blood. Culture from yesterday is still pending. Resent for culture today. CT brain was obtained and showing age-related findings, no acute intracranial pathology. No focal deficits appreciated on exam. Viral swabs from yesterday were negative. Progression of dementia may be contributing to sx's/mental status changes however reports acute electronic data interchange specialist last couple days so feel it is reasonable to treat for UTI. Given acute change in mental status with abnormal UA, will admit for IV antibiotics for UTI. Rocephin started in the ED. Patient's family in agreement with plan. Discussed case with Dr. Box, hospitalist, accepted patient for admission. <Marah Hernandez PA-C - Last Filed: 04/24/24 21:21> Differential Diagnosis Differential diagnosis: Likely altered mental status, dementia, hyponatremia, sepsis and other (UTI, dehydration) <Yoana Boo MD - Last Filed: 04/24/24 21:13> Medical Records Attestation: I reviewed the patient's medical records. <Marah Hernandez PA-C - Last Filed: 04/24/24 21:21> Lab Data Attestation: I reviewed the patient's lab results. <Marah Hernandez PA-C - Last Filed: 04/24/24 21:21> Result diagrams: 04/24/24 15:31 04/24/24 15:31 <Marah Hernandez PA-C - Last Filed: 04/24/24 21:21> Labs: Lab Results 04/24/24 04/24/24 Range/Units 15:31 17:34 WBC 10.8 H (4.5-10.0) K/mm3 RBC 3.88 L (4.6-6.20) M/mm3 Hgb 12.4 L (14.0-18.0) g/dL Hct 36.2 L (42.0-52.0) % MCV 93.3 (80-100) fl MCH 32.0 (26-34) pg MCHC 34.3 (32-36) g/dl RDW 12.8 (11.5-14.5) % Plt Count 170 (150-375) k/mm3 MPV 10.6 H (7.4-10.4) fl Immature Gran % (Auto) 0.5 (0-0.5) % Neut % (Auto) 81.3 H (45.5-73.1) % Lymph % (Auto) 5.2 L (18.3-44.2) % [place] % (Auto) 12.3 H (2.6-8.5) % Eos % (Auto) 0.2 (0-4.4) % Baso % (Auto) 0.5 (0.2-1.2) % Lymph # (Auto) 0.56 L (0.9-3.2) K/mm3 [place] # (Auto) 1.3 H (0.1-0.6) K/mm3 Eos # (Auto) 0.0 (0-0.3) K/mm3 Baso # (Auto) 0.1 (0.0-0.1) K/mm3 Abs Immat Gran (auto) 0.05 H (0.00-0.031) K/mm3 Absolute Neuts (auto) 8.8 H (1.3-6.7) K/mm3 Absolute Nucleated RBC 0.000 (0.0-0.012) K/mm3 Nucleated RBC % 0.0 (0.0-0.2) % PT 15.3 H (11.1-14.7) Seconds INR 1.2 APTT 40.1 H (22.3-36.8) Seconds Sodium 139 (137-145) mmol/L Potassium 3.9 (3.4-5.0) mmol/L Chloride 103 (98-107) mmol/L Carbon Dioxide 27 (22-30) mmol/L Anion Gap 9 (4-12) mmol/L BUN 30 H (9-20) mg/dL Creatinine 1.20 (0.7-1.3) mg/dL Estim Creat Clear Calc 55 ml/min Estimated GFR 60 (59 - ) Glucose 110 (65-110) mg/dL Calcium 9.3 (8.4-10.2) mg/dL Total Bilirubin 2.0 H (0.2-1.3) mg/dL AST 37 (17-59) U/L ALT 20 (6-50) U/L Alkaline Phosphatase 90 (38-126) U/L Total Protein 7.0 (6.3-8.2) g/dL Albumin 4.2 (3.5-5.1) g/dL Urine Color Dark yellow (Yellow) Urine Appearance Clear (Clear) Urine pH 5.0 (5.0-9.0) Ur Specific [place] 1.031 (1.001-1.035) Urine Protein 2+ H (Negative) mg/dL Urine Glucose (UA) Negative (Negative) mg/dL Urine Ketones Trace H (Negative) mg/dL Ur Blood (Man) 1+ H (Negative) Urine Nitrate Positive H (Negative) Urine Bilirubin 2+ H (Negative) Urine Urobilinogen 2.0 H (<2.0) mg/dL Add Ur Microanalysis Reviewed Leukocyte Esterase Rfl Trace H (Negative) KATH/UL Urine RBC 11-20 H (0-2) /hpf Urine WBC 0-5 (0-3) /hpf Ur Squamous Epith Cells None seen (Few) /hpf Urine Bacteria None seen /hpf Urine Casts 3-5 Hyaline Casts Present (None) /lpf Urine Mucus Present /lpf <Marah Hernandez PA-C - Last Filed: 04/24/24 21:21> Lab Results 04/24/24 04/24/24 Range/Units 15:31 17:34 WBC 10.8 H (4.5-10.0) K/mm3 RBC 3.88 L (4.6-6.20) M/mm3 Hgb 12.4 L (14.0-18.0) g/dL Hct 36.2 L (42.0-52.0) % MCV 93.3 (80-100) fl MCH 32.0 (26-34) pg MCHC 34.3 (32-36) g/dl RDW 12.8 (11.5-14.5) % Plt Count 170 (150-375) k/mm3 MPV 10.6 H (7.4-10.4) fl Immature Gran % (Auto) 0.5 (0-0.5) % Neut % (Auto) 81.3 H (45.5-73.1) % Lymph % (Auto) 5.2 L (18.3-44.2) % [place] % (Auto) 12.3 H (2.6-8.5) % Eos % (Auto) 0.2 (0-4.4) % Baso % (Auto) 0.5 (0.2-1.2) % Lymph # (Auto) 0.56 L (0.9-3.2) K/mm3 [place] # (Auto) 1.3 H (0.1-0.6) K/mm3 Eos # (Auto) 0.0 (0-0.3) K/mm3 Baso # (Auto) 0.1 (0.0-0.1) K/mm3 Abs Immat Gran (auto) 0.05 H (0.00-0.031) K/mm3 Absolute Neuts (auto) 8.8 H (1.3-6.7) K/mm3 Absolute Nucleated RBC 0.000 (0.0-0.012) K/mm3 Nucleated RBC % 0.0 (0.0-0.2) % PT 15.3 H (11.1-14.7) Seconds INR 1.2 APTT 40.1 H (22.3-36.8) Seconds Sodium 139 (137-145) mmol/L Potassium 3.9 (3.4-5.0) mmol/L Chloride 103 (98-107) mmol/L Carbon Dioxide 27 (22-30) mmol/L Anion Gap 9 (4-12) mmol/L BUN 30 H (9-20) mg/dL Creatinine 1.20 (0.7-1.3) mg/dL Estim Creat Clear Calc 55 ml/min Estimated GFR 60 (59 - ) Glucose 110 (65-110) mg/dL Calcium 9.3 (8.4-10.2) mg/dL Total Bilirubin 2.0 H (0.2-1.3) mg/dL AST 37 (17-59) U/L ALT 20 (6-50) U/L Alkaline Phosphatase 90 (38-126) U/L Total Protein 7.0 (6.3-8.2) g/dL Albumin 4.2 (3.5-5.1) g/dL Urine Color Dark yellow (Yellow) Urine Appearance Clear (Clear) Urine pH 5.0 (5.0-9.0) Ur Specific [place] 1.031 (1.001-1.035) Urine Protein 2+ H (Negative) mg/dL Urine Glucose (UA) Negative (Negative) mg/dL Urine Ketones Trace H (Negative) mg/dL Ur Blood (Man) 1+ H (Negative) Urine Nitrate Positive H (Negative) Urine Bilirubin 2+ H (Negative) Urine Urobilinogen 2.0 H (<2.0) mg/dL Add Ur Microanalysis Reviewed Leukocyte Esterase Rfl Trace H (Negative) KATH/UL Urine RBC 11-20 H (0-2) /hpf Urine WBC 0-5 (0-3) /hpf Ur Squamous Epith Cells None seen (Few) /hpf Urine Bacteria None seen /hpf Urine Casts 3-5 Hyaline Casts Present (None) /lpf Urine Mucus Present /lpf <Yoana Boo MD - Last Filed: 04/24/24 21:13> Imaging Data Attestation: I personally reviewed and interpreted this imaging study as follows: <Marah Hernandez PA-C - Last Filed: 04/24/24 21:21> Radiologist's impression: ITS Impressions Head CT 04/24/24 17:10 Impression: Age-related change, without acute intracranial hemorrhage or suspicious mass effect. <Marah Hernandez PA-C - Last Filed: 04/24/24 21:21> Critical Care Time Critical Care Time Critical Care Time: No <Yoana Boo MD - Last Filed: 04/24/24 21:13> Discharge Plan Discharge Clinical Impression: AMS (altered mental status), UTI (urinary tract infection), Parkinsons disease <Marah Hernandez PA-C - Last Filed: 04/24/24 21:21> Patient Disposition: Still a Patient <Marah Hernandez PA-C - Last Filed: 04/24/24 21:21> Condition: Stable <Marah Hernandez PA-C - Last Filed: 04/24/24 21:21>
[2024-04-24 19:49] VITALS: BP 158/90; PULSE 87; RESP 16; O2SAT 98
--- NOTE | 2024-04-24 20:13 | P.HP_ITS ---
H&P: HPI History of Present Illness Date/Time: 04/24/24 20:13 Chief Complaint: AMS Narrative: This is a 68-year-old male with past medical history significant for Parkinson's disease, Parkinson's dementia, patient lives at [facility]. Was brought to the emergency room for evaluation due to agitation, hallucinations, lethargy, obtundation, falls, generalized weakness. History has been obtained from who is sitting at bedside. Preliminary workup was significant for urinalysis with findings of infection present patient had been treated for urinary infection recently. EXAMINATION: CT brain wo con DATE: 04/23/2024 21:51 INDICATION: Altered mental status. TECHNIQUE: Computed tomography (CT) of the head was performed without intravenous contrast. The mA was adjusted according to patient size. Iterative reconstruction technique was employed. The dose-length product was 1513.33 mGy- cm. COMPARISON: Head CT 03/24/2024 FINDINGS: There is no intracranial hemorrhage, acute infarction, or abnormal intracranial mass lesion. The ventricles are normal in size. There is mild mucosal thickening in the paranasal sinuses. The orbits are normal. The mastoid air cells are normal. IMPRESSION: 1. Normal brain. Review of Systems Review of Systems: ROS unobtainable: Yes unobtainable due to mental status PMFSH Past Medical History Medical History Anxiety Dementia in Parkinson's disease Obstructive sleep apnea on CPAP Parkinsons disease Surgical History Surgical History History of open reduction and internal fixation (ORIF) procedure repair left wrist fracture Family History Family History Unknown No problems noted. Mother Lung cancer Sibling Breast cancer Social History Social History Social History: Healthcare power of workers compensation defense attorney: Janene Shankar, spouse. Code status: Do not resuscitate. Smoking status: Former smoker Smoking end date: 03/24/74 Alcohol intake: never Drinks per week: 2 Substance use: never Do You Feel Safe in your Home?: Yes Lack of Transportation: No Lack of Food: Never True Current Housing: I Have Housing Concerned About Future Housing: No Difficulty Paying Gas/Electric Bills: No Difficulty Paying for Meds: No Currently Unemployed: No Education: High School Diploma/GED Difficulty w/ Childcare or Family Care: No Additional living arrangements comments: Memory care at [facility] in [place]. 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 Spiritual care concerns: No Meds Home Medications and Allergies Home Medications Medication Instructions Recorded Confirmed Type carbidopa 25 mg-levodopa 100 mg 2.5 tablet PO TID 10/12/22 04/24/24 History tablet donepezil 10 mg tablet 10 mg PO DAILY 10/12/22 04/24/24 History Saccharomyces boulardii 250 mg 250 mg PO DAILY 03/24/24 04/24/24 History capsule (Probiotic (S.boulardii)) acetaminophen 325 mg tablet 650 mg PO TID 03/24/24 04/24/24 History (Tylenol) baclofen 5 mg tablet 5 mg PO TID PRN Cramps 03/24/24 04/24/24 History carbidopa 25 mg-levodopa 100 mg 3 tablet PO HS 03/24/24 04/24/24 History tablet ergocalciferol (vitamin D2) 1,250 50,000 unit PO WEEKLY 03/24/24 04/24/24 History mcg (50,000 unit) capsule (Vitamin D2) hydrocortisone 1 % topical cream 1 applic topical TID PRN 03/24/24 04/24/24 History (Preparation H Hydrocortisone) Hemorrhoids loperamide 2 mg capsule 2 mg PO PRN PRN Loose Stool 03/24/24 04/24/24 History melatonin 10 mg capsule 10 mg PO HS 03/24/24 04/24/24 History midodrine 5 mg tablet 5 mg PO TID #90 tabs 03/30/24 04/24/24 Rx polyethylene glycol 3350 17 gram 17 g PO DAILY #30 ea 03/30/24 04/24/24 Rx oral powder packet (Miralax) sennosides 8.6 mg-docusate sodium 1 tab-cap PO BID #60 tabs 03/30/24 04/24/24 Rx 50 mg tablet (Senokot-S) cephalexin 500 mg capsule 500 mg PO Q12H 7 days #14 caps 04/23/24 04/24/24 Rx Karl suresh 250 mg-vit C 60 mg- 1 cap PO DAILY 04/24/24 04/24/24 History vit D3 10 mcg-zinc 10 mg capsule (FlorastorSelect Immunity Boost) tramadol 50 mg tablet 50 mg PO Q8H PRN Pain (Scale Score 04/24/24 04/24/24 History 4-6) Allergies Allergy/AdvReac Type Severity Reaction Status Date / Time No Known Allergies Allergy Verified 03/24/24 15:48 Vital Signs Vital Signs - 24 hr 04/24/24 14:49 04/24/24 14:49 04/24/24 19:49 Temperature 97.6 F Pulse Rate 81 87 Respiratory Rate 20 16 Blood Pressure 148/90 H 158/90 H Pulse Oximetry 99 99 98 Oxygen Delivery Room Air Room Air Exam Const: General: comfortable, no acute distress, well developed, alert, awake and average body habitus Nutritional Appearance: average body habitus Orientation/consciousness: Other orientation findings (DELIRIOUS) HENMT: Head: normal to inspection, normocephalic and atraumatic Ears: hearing grossly normal bilaterally Face/Nose/Sinus: normal facial exam Face and sinus: normal facial exam Eyes: General: appearance normal, both eyes and all related structures Pupils: Equal, round and reactive pupils present EOM: EOMs intact bilaterally Neck: Neck: full ROM, no lymphadenopathy and no JVD Thyroid: thyroid normal Lymphatic: no lymphadenopathy noted Resp: Effort & Inspection: normal respiratory effort and able to speak in complete sentences Auscultation: clear to auscultation bilaterally Cardio: Jugular venous distension: no JVD Rate: regular rate Rhythm: regular rhythm Heart sounds: S1 normal heart sound present and S2 normal heart sound present GI: GI Palp: Yes Soft to palpation and Yes No hepatosplenomegaly present : General: Yes deferred Skin: Rashes: no rashes Wounds: no wounds Neuro: General: patient oriented x3 and CN's II-XI intact bilaterally Industrial Ecologist nial nerves: Yes CN's II-XII intact bilaterally and Yes Equal, round and reactive pupils present Cognition (Neuro): normal cognition Speech: normal speech Gait exam (Neuro): Normal gait present Motor exam (neuro): 5/5 motor strength present throughout Extrem: General: normal to inspection, full ROM, no joint enlargement and no pedal edema H&P: Results Labs Labs: Short CBC 04/24/24 Range/Units 15:31 WBC 10.8 H (4.5-10.0) K/mm3 Hgb 12.4 L (14.0-18.0) g/dL Hct 36.2 L (42.0-52.0) % Plt Count 170 (150-375) k/mm3 BMP 04/24/24 15:31 Sodium 139 Potassium 3.9 Chloride 103 Carbon Dioxide 27 BUN 30 H Creatinine 1.20 Glucose 110 Calcium 9.3 Liver Function 04/24/24 Range/Units 15:31 Total Bilirubin 2.0 H (0.2-1.3) mg/dL AST 37 (17-59) U/L ALT 20 (6-50) U/L Alkaline Phosphatase 90 (38-126) U/L Albumin 4.2 (3.5-5.1) g/dL Urine 04/24/24 Range/Units 17:34 Urine Color Dark yellow (Yellow) Urine Appearance Clear (Clear) Urine pH 5.0 (5.0-9.0) Ur Specific [place] 1.031 (1.001-1.035) Urine Protein 2+ H (Negative) mg/dL Urine Glucose (UA) Negative (Negative) mg/dL Assessment and Plan Assessment and plan (1) AMS (altered mental status): Qualifiers: Altered mental status type: unspecified Qualified Code(s): R41.82 - Altered mental status, unspecified Code(s): R41.82 - Altered mental status, unspecified Status: Acute Assessment and Plan: likely secondary to acute illness delirium in the setting of Parkinson's dementia supportive care (2) UTI (urinary tract infection): Qualifiers: Hematuria presence: with hematuria Urinary tract infection type: acute cystitis Qualified Code(s): N30.01 - Acute cystitis with hematuria Code(s): N39.0 - Urinary tract infection, site not specified Status: Acute Assessment and Plan: patient started on Rocephin await cultures (3) 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: Code(s): G90.3 - Multi-system degeneration of the autonomic nervous system Status: Acute Assessment and Plan: supportive care (4) Obstructive sleep apnea on CPAP: Code(s): G47.33 - Obstructive sleep apnea (adult) (pediatric) Status: Acute Assessment and Plan: CPAP at nighttime (5) Parkinsons disease: Qualifiers: Dyskinesia presence: unspecified whether dyskinesia Fluctuating manifestations: unspecified whether manifestations fluctuate Qualified Code(s): G20.A1 - Parkinson's disease without dyskinesia, without mention of fluctuations Code(s): G20.A1 - Parkinson's disease without dyskinesia, without mention of fluctuations Status: Acute Assessment and Plan: resume home med (6) Dementia in Parkinson's disease: Code(s): G20.A1 - Parkinson's disease without dyskinesia, without mention of fluctuations; F02.80 - Dementia in other diseases classified elsewhere, unspecified severity, without behavioral disturbance, psychotic disturbance, mood disturbance, and anxiety Status: Acute Assessment and Plan: resume home meds Hospitalist [facility] Advance Care Plan I have confirmed that the patient's Advanced Care Plan is present, code status is documented, or surrogate decision maker is listed in patient medical record.: Yes Medication Reconciliation I have utilized all available resources to obtain, update and review the patients current medications (includes all prescriptions, OTC, herbals, ca nnabis, and nutritional supplements).: Yes
[2024-04-24] MEDS: CARBIDOPA/LEVODOPA 25/100 MG TABLET 3 TABLET PO (20:50)
[2024-04-24 21:57] VITALS: BMI 27.6
--- NOTE | 2024-04-24 21:58 | ADMGEN ---
This patient, Sean Shankar, was admitted to [facility] Surg Room 322-02. Patient/family oriented to hospital policies and general routines including ID bracelet, bed and alarms, visiting hours, pain management, procedures, bathroom and other care routines, personal items, smoking policy, room service/diet, and visiting hours. Information on how to activate the Rapid Response Team has been discussed. Patient/Family are encouraged to report perceived risks to care and to ask questions if they do not understand what they are told or what they should do.
[2024-04-24 22:00] VITALS: BP 106/78; PULSE 75; RESP 16; TEMP 37.2; O2SAT 95
[2024-04-24 23:13] VITALS: PULSE 75; RESP 16; O2SAT 95
[2024-04-25 05:00] VITALS: BP 136/71; PULSE 84; RESP 20; TEMP 37.4; O2SAT 96
[2024-04-25] MEDS: ACETAMINOPHEN 325 MG TABLET 650 MG PO ×2 (10:25→12:24)
[2024-04-25] MEDS: polyethylene glycoL 3350 17 GM POWD.PACK PO (10:25)
[2024-04-25] MEDS: SENNA/DOCUSATE SODIUM TABLET 1 TAB PO (10:26)
[2024-04-25] MEDS: CARBIDOPA/LEVODOPA 25/100 MG TABLET 2.5 TABLET PO ×2 (10:26→12:23)
[2024-04-25] MEDS: MIDODRINE HCL 2.5 MG TABLET 5 MG PO ×2 (10:26→12:25)
[2024-04-25] MEDS: SACCHAROMYCES BOULARDII 250 MG CAPSULE PO (10:27)
[2024-04-25] MEDS: DONEPEZIL HCL 10 MG TABLET PO (10:28)
--- NOTE | 2024-04-25 13:39 | P.DS_ITS ---
DS: Admitting Diagnosis Discharge Date 04/25/2024 Admitting Diagnosis AMS secondary to UTI DS: Discharge Diagnosis Discharge Diagnosis (1) AMS (altered mental status): Qualifiers: Altered mental status type: unspecified Qualified Code(s): R41.82 - Altered mental status, unspecified Code(s): R41.82 - Altered mental status, unspecified Status: Acute (2) UTI (urinary tract infection): Qualifiers: Hematuria presence: with hematuria Urinary tract infection type: acute cystitis Qualified Code(s): N30.01 - Acute cystitis with hematuria Code(s): N39.0 - Urinary tract infection, site not specified Status: Acute (3) 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: Code(s): G90.3 - Multi-system degeneration of the autonomic nervous system Status: Acute (4) Obstructive sleep apnea on CPAP: Code(s): G47.33 - Obstructive sleep apnea (adult) (pediatric) Status: Acute (5) Parkinsons disease: Qualifiers: Dyskinesia presence: unspecified whether dyskinesia Fluctuating manifestations: unspecified whether manifestations fluctuate Qualified Code(s): G20.A1 - Parkinson's disease without dyskinesia, without mention of fluctuations Code(s): G20.A1 - Parkinson's disease without dyskinesia, without mention of fluctuations Status: Acute (6) Dementia in Parkinson's disease: Code(s): G20.A1 - Parkinson's disease without dyskinesia, without mention of fluctuations; F02.80 - Dementia in other diseases classified elsewhere, unspecified severity, without behavioral disturbance, psychotic disturbance, mood disturbance, and anxiety Status: Acute Plan Disposition: Discharge to [facility] DS: Summary Hospital Course Reason for hospitalization: AMS secondary to UTI Hospital Course: Patient is a 68 year old male who was admitted from his retirement for report of worsening AMS status. Patient had been seen the day prior in the ED and discharged back with a diagnosis of UTI. Patient with chronic indwelling catheter. Per the medical chart patient had received a dose of rociphen and sent on Keflex but had not received a dose. He was sent back to the ED with same symptoms and admitted for treatment of uti. Patient given IV Rociphen. Patient has history of Parkinson's and dementia. Following day patient was alert and oriented close to baseline with family at bedside overall improvement. labs and vitals stable and he was discharged back to SNF on oral Augmentin for UTI Status at Discharge Functional status at discharge: bed bound Overall status at discharge: patient is progressing back to baseline Time Spent with Patient Time attestation: Total time spent providing and/or coordinating discharge services: Time spent: Greater than 30 minutes Exam Narrative: * GENERAL: Alert and oriented x 2 family at bedside reports back to baseline. No acute distress. limited speech * EYES: PERRLA. * HEENT: Moist mucous membranes. * LUNGS: Clear to auscultation bilaterally. No accessory muscle use. * CARDIOVASCULAR: Regular rate and rhythm. No murmur. No JVD. S1-S2 * ABDOMEN: Soft, non tenderness and non-distended. No palpable masses. * EXTREMITIES: No edema. Non-tender,equal strength BLE and JAKE * SKIN: No rashes or lesions. Skin warm, dry. * NEUROLOGIC: Neurologically intake a baseline, HX parkinsons and Dementia * PSYCHIATRIC: Appropriate mood and affect. DS: Data Data Completed and Pending Labs on day of discharge: Labs from last 24 hours 04/24/24 04/24/24 17:34 15:31 WBC 10.8 H RBC 3.88 L Hgb 12.4 L Hct 36.2 L MCV 93.3 MCH 32.0 MCHC 34.3 RDW 12.8 Plt Count 170 MPV 10.6 H Immature Gran % (Auto) 0.5 Neut % (Auto) 81.3 H Lymph % (Auto) 5.2 L Scott % (Auto) 12.3 H Eos % (Auto) 0.2 Baso % (Auto) 0.5 Lymph # (Auto) 0.56 L Scott # (Auto) 1.3 H Eos # (Auto) 0.0 Baso # (Auto) 0.1 Abs Immat Gran (auto) 0.05 H Absolute Neuts (auto) 8.8 H Absolute Nucleated RBC 0.000 Nucleated RBC % 0.0 PT 15.3 H INR 1.2 APTT 40.1 H Sodium 139 Potassium 3.9 Chloride 103 Carbon Dioxide 27 Anion Gap 9 BUN 30 H Creatinine 1.20 Estim Creat Clear Calc 55 Estimated GFR 60 Glucose 110 Calcium 9.3 Total Bilirubin 2.0 H AST 37 ALT 20 Alkaline Phosphatase 90 Total Protein 7.0 Albumin 4.2 Urine Color Dark yellow Urine Appearance Clear Urine pH 5.0 Ur Specific [place] 1.031 Urine Protein 2+ H Urine Glucose (UA) Negative Urine Ketones Trace H Ur Blood (Man) 1+ H Urine Nitrate Positive H Urine Bilirubin 2+ H Urine Urobilinogen 2.0 H Add Ur Microanalysis Reviewed Leukocyte Esterase Rfl Trace H Urine RBC 11-20 H Urine WBC 0-5 Ur Squamous Epith Cells None seen Urine Bacteria None seen Urine Casts 3-5 Hyaline Casts Present Urine Mucus Present Imaging Radiologist's impression: History: Altered mental status PROCEDURE: CT head without contrast. Examination is markedly limited by significant amount of motion artifact (as the patient was unable to follow commands) COMPARISON: 04/23/2024 TECHNIQUE: Axial imaging of the head performed from the skull base to the vertex without IV contrast. Sagittal and coronal reformations obtained. DLP: 1362 mGy-cm FINDINGS: The ventricles are dilated. The dilatation of the ventricles is proportional to the degree of sulcal prominence, not uncommon in the senescent brain. Decreased attenuation is identified within the periventricular white matter, likely secondary to microvascular ischemic disease, in a patient of this age. There is no mass, mass effect or midline shift. There is no abnormal extra-axial fluid collection or intracranial hemorrhage. Visualized paranasal sinuses are clear. The mastoid air cells are well aerated. No acute displaced fractures within the overlying cranium. Impression: Age-related change, without acute intracranial hemorrhage or suspicious mass effect. Discharge Plan Discharge Attending physician on discharge: Wilton Cole Consulting providers: Yoana Boo Discharging Clinician: Hope David Anticipated Discharge Date/Time: 04/25/24 13:30 Patient Disposition: SNF Activity: as tolerated Diet: regular Discharge Instructions: You are being discharged back to [facility] after an episode of worsening confusion and you were found to have a UTI. You were given a dose IV Rocephin in the emergency department and I will transition you to an oral antibiotic please take as prescribed. I have provided information regarding UTI for education. How can you care for yourself at home? ? Keep track of any new symptoms or changes in your symptoms. ? Rest until you feel better. ? Be safe with medicines. Take your medicines exactly as prescribed. Call your doctor if you think you are having a problem with your medicine. ? Do not drive after taking a prescription pain medicine. ? Ensure to follow-up with primary care physician as indicated and provide updated medication list provided to you at discharge. When should you call for help? Call 911 anytime you think you may need emergency care. For example, call if: ? You passed out (lost consciousness). Call your doctor now or seek immediate medical care if: ? You have new symptoms like fever, difficulty breathing, Chest pain, vomiting, or rash. ? You have new or different pain. ? You are confused and are having trouble thinking clearly. ? Your symptoms are getting worse. Watch closely for changes in your health, and be sure to contact your doctor if: ? You do not get better as expected. Patient Instructions: Urinary Tract Infection in Men (DC) Patient Language: British Stand Alone Forms: General Discharge Information Follow-up/Referrals: Krissy,PAULA Thomas [Primary Care Provider] - 2 Weeks Discharge Medications: New amoxicillin-pot clavulanate 875-125 mg tablet 1 tablet PO Q12H Qty: 14 0RF Continued acetaminophen [Tylenol] 325 mg tablet 650 mg PO TID loperamide 2 mg capsule 2 mg PO PRN PRN (Reason: Loose Stool) hydrocortisone [Preparation H Hydrocortisone] 1 % cream 1 applic topical TID PRN (Reason: Hemorrhoids) ergocalciferol (vitamin D2) [Vitamin D2] 1,250 mcg (50,000 unit) capsule 50,000 unit PO WEEKLY Rx Instructions: carbidopa-levodopa 25-100 mg tablet 3 tablet PO HS Rx Instructions: at bedtime Saccharomyces boulardii [Probiotic (S.boulardii)] 250 mg capsule 250 mg PO DAILY melatonin 10 mg capsule 10 mg PO HS baclofen 5 mg tablet 5 mg PO TID PRN (Reason: Cramps) polyethylene glycol 3350 [Miralax] 17 gram Powder In Packet 17 g PO DAILY Qty: 30 0RF sennosides-docusate sodium [Senokot-S] 8.6-50 mg Tablet 1 tab-cap PO BID Qty: 60 0RF midodrine 5 mg tablet 5 mg PO TID Qty: 90 0RF Rx Instructions: do not give last dose of day after 6PM or within 4 hrs of bedtime FlorastorSelect Immunity Boost 250 mg-60 mg- 10 mcg-10 mg Capsule 1 cap PO DAILY tramadol 50 mg tablet 50 mg PO Q8H PRN (Reason: Pain (Scale Score 4-6)) donepezil 10 mg tablet 10 mg PO DAILY carbidopa-levodopa 25-100 mg tablet 2.5 tablet PO TID Discontinued cephalexin 500 mg capsule 500 mg PO Q12H 7 Days Qty: 14 0RF Date of admission: 04/24/24 20:03 Primary Care Provider: KrsisyMartha Admitting Provider: Tori Box V. Attending physician on admission: Hope David Condition: Stable Quality -Patient's previous records reviewed on admission -ER notes reviewed in detail on admission -discussed all findings and current treatment plan with patient/Family/POA -Consultations reviewed for recommendations -Patient's disposition for safe discharge discussed with bottle caser Dictation performed by [employer] direct speech recognition software, therefore chicken raiser variants and typographical errors may occur. Hospitalist MIPS Heart Failure (Exclusion) Patient has history of Heart Transplant or Left Ventricular Assistive Device?: No IF YES, STOP HERE Heart Failure (Qualifier) Patient has current or prior documentation of LVEF less than or equal to 40%, or mod/servere depressed LVSF?: No IF NO, STOP HERE
[2024-04-25 14:00] VITALS: BP 158/84; PULSE 66; RESP 18; TEMP 36.8; O2SAT 100
== END 2024-04-25 16:55 ==
LOC: ANHED 20:07 → ANH3MEDSUR 20:54
PROVIDERS: Emergency Medicine; Admitting Provider Internal Medicine; Emergency Provider Physician Assistant; PCP Nurse Practitioner; Visit Provider Nurse Practitioner Family
DX: N30.01 Acute cystitis with hematuria (principal); G90.3 Multi-system degeneration of the autonomic nervous system; G20.A1 Parkinson's disease without dyskinesia, without mention of fluctuations; F02.80 Dementia in other diseases classified elsewhere, unspecified severity, without behavioral disturbance, psychotic disturbance, mood disturbance, and anxiety; F05 Delirium due to known physiological condition; G47.33 Obstructive sleep apnea (adult) (pediatric); Z99.89 Dependence on other enabling machines and devices; Z97.8 Presence of other specified devices; Z66 Do not resuscitate; Z87.891 Personal history of nicotine dependence; Z79.899 Other long term (current) drug therapy; Z74.01 Bed confinement status
CPT/HCPCS: 36415; 70450; 73564; 80053; 81001; 85025; 85610; 85730; 87040; 87086; 87636; 93005; 96365; 96372; 99283; 99284; 99285; A9270; G0378; J0696; J1885; J7030